=== PATIENT | female | born 1935 | race Caucasian/White ===

== ENCOUNTER 2021-03-03 20:52 | Emergency (ER) | payer MEDICARE, MEDICAID, SELFPAY ==
--- NOTE | ~2021-03-03 | CT_ITS ---
EXAMINATION: CT ABDOMEN AND PELVIS WITHOUT CONTRAST CLINICAL INFORMATION: Left lower quadrant pain, question diverticulitis COMPARISON: 03/31/2019 TECHNIQUE: Multidetector volumetric imaging was performed from the superior aspect of the liver through the pubic symphysis. Sagittal and coronal reformatted images were obtained on the technologist's workstation. This CT examination was performed using dose optimization techniques as appropriate, variously including the following: *Automated exposure control *Adjustment of mA and/or kV according to patient size (this includes techniques or standardized protocols for targeted exams where dose is matched to indication/reason for exam; i.e. extremities or head) *Use of iterative reconstruction technique DLP: 465 mGy-cm FINDINGS: LUNG BASES: The visualized lung bases are unremarkable. LIVER, GALLBLADDER, AND BILIARY TREE: The liver is normal in size, shape, and attenuation. No focal hepatic lesion or biliary ductal dilatation is present. Patient is status post cholecystectomy. PANCREAS: Unremarkable. SPLEEN: Unremarkable. ADRENAL GLANDS: Unremarkable. KIDNEYS AND URETERS: The kidneys are normal in size, shape, and attenuation. No hydronephrosis, hydroureter, or calculi seen. No perinephric stranding. BLADDER: Unremarkable. GASTROINTESTINAL TRACT: Moderate-sized hiatal hernia is noted. The small and large bowel are unremarkable. ABDOMINAL WALL: No significant hernia is appreciated. LYMPH NODES: No lymphadenopathy is seen, though assessment is limited in the absence of intravenous contrast. VASCULAR: There is atherosclerotic calcification along the aorta. PELVIC VISCERA: Patient appears status post hysterectomy. OSSEOUS STRUCTURES: Degenerative changes are noted in the spine along with a prominent scoliosis. CT/CT abdomen pelvis wo con IMPRESSION: Colonic diverticulosis without convincing evidence of diverticulitis. Moderate-sized hiatal hernia.
[2021-03-03 21:07] VITALS: BP 142/82; PULSE 120; RESP 18; TEMP 37.1; O2SAT 95; BMI 22.8
--- NOTE | 2021-03-03 22:39 | ED_ITS ---
HPI - General Adult General Chief complaint: General Medical Stated complaint: Leg pain Time Seen by Provider: 03/03/21 22:39 Source: patient Mode of arrival: ambulatory Limitations: no limitations History of Present Illness HPI narrative: Patient history of high cholesterol anxiety hypertension complaining of left lower abdominal pain for last 1 week got worse today after patient pushed hard stool. Patient was complaining of pain radiating to left leg. No nausea no vomiting no diarrhea no fever no chills no urinary complaints patient noticed small amount of fresh blood after she had bowel movement in the morning today no melena no blood clots Related Data Home Medications Medication Instructions Recorded Confirmed acetaminophen 650 mg 650 mg PO Q12H PRN 12/17/20 03/01/21 tablet,extended release cholecalciferol (vitamin D3) 25 25 mcg PO DAILY 12/17/20 03/01/21 mcg (1,000 unit) capsule clonazepam 0.5 mg tablet 0.5 mg PO DAILY PRN 12/17/20 03/01/21 lisinopril 5 mg tablet 5 mg PO DAILY 12/17/20 03/01/21 qplvxeec-kczhztd-tcut-lutein tablet tab PO DAILY tab 12/17/20 03/01/21 Previous Rx's Medication Instructions Recorded escitalopram oxalate 5 mg tablet 5 mg PO DAILY 30 Days #30 tab 12/24/20 simvastatin 5 mg tablet 5 mg PO DAILY #90 tab 02/21/21 atenolol 50 mg tablet 50 mg PO DAILY 90 Days #90 tab 02/25/21 Allergies Allergy/AdvReac Type Severity Reaction Status Date / Time Penicillins Allergy Mild RASH Verified 03/03/21 21:13 acetaminophen [Percocet] Allergy Unknown nausea Verified 03/03/21 21:13 clindamycin [CLINDAMYCIN] Allergy Unknown FELT Verified 03/03/21 21:13 AWFUL/upset stomach penicillin V Allergy Unknown rash Verified 03/03/21 21:13 oxycodone [OXYCODONE] AdvReac Unknown STOMACH Verified 03/03/21 21:13 UPSET From [facility] Allergy Mild GI UPSET Uncoded 03/03/21 21:13 Review of Systems Review of Systems: Constitutional : No Weight loss, No Fever, No Chills ENT/Mouth : No sore throat, No Rhinorrhea Eyes: No Eye Pain, No Swelling Cardiovascular : No Chest Pain, no palpitations Respiratory : No Cough, No Sputum, no shortness of breath Gastrointestinal : no Nausea, No Vomiting, No Diarrhea, ++abdominal Pain, no black stools Genitourinary : No Dysuria, No Urinary Frequency Musculoskeletal : No joint pain, No Myalgias, No Joint Swelling Skin : No Skin Lesions, No rash Neuro : No Weakness, No Numbness, No Dizziness, No Headache Psych : No Anxiety/Panic, No Depression Heme/Lymph: No Bruising, No Lymphadenopathy Endocrine : No Polyuria, No Polydipsia All other systems reviewed and are negative [facility] Past Medical History Medical History Anxiety and depression Asthma Cataracts, bilateral Cervical spondylosis Cholelithiasis Goiter Hypercholesterolemia Hypertension Impaired glucose tolerance Osteopenia Problem of both ears Surgical History Hx of cholecystectomy Hx of tonsillectomy Status post total abdominal hysterectomy Family History Family History Father No problems noted. Mother No problems noted. Social History Social History Alcohol intake: never Smoking Status: Never smoker Use of substances other than those prescribed or required for medical reasons: No Advance Directives: No Advance Directives Information Provided: Yes Physical Exam Vital Signs: Vital Signs: Last Vital Signs Temp 98.1 F 03/03/21 23:01 Pulse 113 H 03/03/21 23:01 Resp 15 03/03/21 23:01 BP 155/97 H 03/03/21 23:01 Pulse Ox 95 03/03/21 23:01 Body Mass Index 22.8 Appearance: Alert. Oriented X3. No acute distress. Eyes: PERRLA, No Nystagmus ENT: Pharynx normal. Oral Mucosa moist Neck: Normal inspection. Neck supple. CVS: Normal heart rate and rhythm. Pulses normal. Respiratory: No respiratory distress. Equal air entry bilateral, no wheezing/rales/rhonchi Abdomen: Soft , deep tenderness left lower quadrant no rebound tenderness or guarding Bowel sounds are present, no mass palpable, no CVA tenderness Skin: Skin warm and dry. Normal skin color. Normal skin turgor. Extremities: No lower extremity edema. No calf tenderness Neuro: Oriented X 3. No motor deficit. No sensory deficit.No cerebellar signs , cranial nerves II-XII intact Medical Decision Making MDM Narrative Medical decision making narrative: Patient with nonspecific left lower abdominal pain workup showed diverticulosis without diverticulitis CBC chemistries stable patient has spider veins in the left leg and she complaining of does the promi nent veins no signs of DVT. Will discharge patient home Lab Data Result diagrams: 03/03/21 23:20 03/03/21 23:20 Labs: Lab Results 03/03/21 03/03/21 03/03/21 Range/Units 23:20 23:20 23:20 WBC 5.1 (4.8-10.8) X10*3/uL RBC 4.45 (4.20-5.50) X10*6/uL Hgb 13.4 (12.0-16.0) g/dl Hct 40.2 (37-47) % MCV 90.3 (80-98) fL MCH 30.1 (27.0-33.0) pg MCHC 33.3 (31.0-35.0) g/dl RDW 13.1 (11.0-16.0) % Plt Count 173 (160-400) X10*3/uL MPV 9.9 (9.4-12.3) fL Immature Gran % (Auto) 0.2 (0.0-0.4) % Neut % (Auto) 55.5 (45-73) % Lymph % (Auto) 31.6 (20-40) % [place] % (Auto) 9.5 (2-11) % Eos % (Auto) 2.8 (0-4) % Baso % (Auto) 0.4 (0-2) % Lymph # (Auto) 1.6 (1.2-4.9) X10*3/uL [place] # (Auto) 0.5 (0.1-1.2) X10*3/uL Eos # (Auto) 0.1 (0.0-0.4) X10*3/uL Baso # (Auto) 0.0 (0.0-0.2) X10*3/uL Abs Immat Gran (auto) 0.01 (0.00-0.03) X10*3/uL Absolute Neuts (auto) 2.8 (2.0-8.3) X10*3/uL Absolute Nucleated RBC 0.000 (0.0-0.012) X10*3/uL Nucleated RBC % (auto) 0.0 (0.0-0.2) /100WBC Sodium 142 (135-145) mmol/L Potassium 4.9 (3.3-5.1) mmol/L Chloride 108 (96-108) mmol/L Carbon Dioxide 25 (22-29) mmol/L Anion Gap 14 (12-20) BUN 24 H (9-16) mg/dL Creatinine 0.92 (0.5-1.4) mg/dL Estim Creat Clear Calc 35.3 Estimated GFR 58 Random Glucose 110 (60-115) mg/dL Calcium 9.4 (8.4-10.2) mg/dL Total Bilirubin 0.6 (0.0-1.0) mg/dL Direct Bilirubin 0.2 (0.0-0.5) mg/dL AST 24 (5-31) U/L ALT 19 (0-31) U/L Alkaline Phosphatase 52 (39-117) U/L Total Protein 6.7 (6.5-8.0) g/dL Albumin 3.9 (3.5-5.0) g/dL Lipase 29 (8-78) U/L Urine Color Urine Appearance Urine pH (5.0-8.0) Ur Specific [place] (1.005-1.025) Urine Protein (NEG-TRACE) MG/DL Urine Glucose (UA) (NEG) MG/DL Urine Ketones (NEG) MG/DL Urine Blood (NEG) Urine Nitrite (NEG) Ur Leukocyte Esterase (NEG) 03/04/21 Range/Units 00:31 WBC (4.8-10.8) X10*3/uL RBC (4.20-5.50) X10*6/uL Hgb (12.0-16.0) g/dl Hct (37-47) % MCV (80-98) fL MCH (27.0-33.0) pg MCHC (31.0-35.0) g/dl RDW (11.0-16.0) % Plt Count (160-400) X10*3/uL MPV (9.4-12.3) fL Immature Gran % (Auto) (0.0-0.4) % Neut % (Auto) (45-73) % Lymph % (Auto) (20-40) % [place] % (Auto) (2-11) % Eos % (Auto) (0-4) % Baso % (Auto) (0-2) % Lymph # (Auto) (1.2-4.9) X10*3/uL [place] # (Auto) (0.1-1.2) X10*3/uL Eos # (Auto) (0.0-0.4) X10*3/uL Baso # (Auto) (0.0-0.2) X10*3/uL Abs Immat Gran (auto) (0.00-0.03) X10*3/uL Absolute Neuts (auto) (2.0-8.3) X10*3/uL Absolute Nucleated RBC (0.0-0.012) X10*3/uL Nucleated RBC % (auto) (0.0-0.2) /100WBC Sodium (135-145) mmol/L Potassium (3.3-5.1) mmol/L Chloride (96-108) mmol/L Carbon Dioxide (22-29) mmol/L Anion Gap (12-20) BUN (9-16) mg/dL Creatinine (0.5-1.4) mg/dL Estim Creat Clear Calc Estimated GFR Random Glucose (60-115) mg/dL Calcium (8.4-10.2) mg/dL Total Bilirubin (0.0-1.0) mg/dL Direct Bilirubin (0.0-0.5) mg/dL AST (5-31) U/L ALT (0-31) U/L Alkaline Phosphatase (39-117) U/L Total Protein (6.5-8.0) g/dL Albumin (3.5-5.0) g/dL Lipase (8-78) U/L Urine Color YELLOW Urine Appearance CLEAR Urine pH 6.0 (5.0-8.0) Ur Specific [place] 1.020 (1.005-1.025) Urine Protein NEG (NEG-TRACE) MG/DL Urine Glucose (UA) NEG (NEG) MG/DL Urine Ketones NEG (NEG) MG/DL Urine Blood NEG (NEG) Urine Nitrite NEG (NEG) Ur Leukocyte Esterase NEG (NEG) Imaging Data CT scan - abdomen: Radiologist's impression: Patient: Danielle Bonilla EMR#: [id number]: 5Acct:[id number]/Sex: 85 / FADM Date: 03/03/21Loc: HO.EDAttending Dr: Ordering Physician: Brandin Muir MD Date of Service: 03/03/21 Procedure(s): CT abdomen pelvis wo con Accession Number(s): [id number] cc: Brandin Muir MD~ EXAMINATION: CT ABDOMEN AND PELVIS WITHOUT CONTRAST CLINICAL INFORMATION: Left lower quadrant pain, question diverticulitis COMPARISON: 03/31/2019 TECHNIQUE: Multidetector volumetric imaging was performed from the superior aspect of the liver through the pubic symphysis. Sagittal and coronal reformatted images were obtained on the technologist's workstation. This CT examination was performed using dose optimization techniques as appropriate, variously including the following: *Automated exposure control *Adjustment of mA and/or kV according to patient size (this includes techniques or standardized protocols for targeted exams where dose is matched to indication/reason for exam; i.e. extremities or head) *Use of iterative reconstruction technique DLP: 465 mGy-cm FINDINGS: LUNG BASES: The visualized lung bases are unremarkable. LIVER, GALLBLADDER, AND BILIARY TREE: The liver is normal in size, shape, and attenuation. No focal hepatic lesion or biliary ductal dilatation is present. Patient is status post cholecystectomy. PANCREAS: Unremarkable. SPLEEN: Unremarkable. ADRENAL GLANDS: Unremarkable. KIDNEYS AND URETERS: The kidneys are normal in size, shape, and attenuation. No hydronephrosis, hydroureter, or calculi seen. No perinephric stranding. BLADDER: Unremarkable. GASTROINTESTINAL TRACT: Moderate-sized hiatal hernia is noted. The small and large bowel are unremarkable. ABDOMINAL WALL: No significant hernia is appreciated. LYMPH NODES: No lymphadenopathy is seen, though assessment is limited in the absence of intravenous contrast. VASCULAR: There is atherosclerotic calcification along the aorta. PELVIC VISCERA: Patient appears status post hysterectomy. OSSEOUS STRUCTURES: Degenerative changes are noted in the spine along with a prominent scoliosis. CT/CT abdomen pelvis wo con IMPRESSION: Colonic diverticulosis without convincing evidence of diverticulitis. Moderate-sized hiatal hernia. Dictated By:MAXIMILIAN MO MD Discharge Plan Discharge Clinical Impression: Diverticulosis Patient Disposition: Home, Self-Care Instructions: Diverticulosis (ED) Additional Instructions: Avoid constipation/straining , have lot of fibers Report to ER/PCP if increased abdominal pain/fever/vomiting Prescriptions: No Action simvastatin 5 mg tablet 5 mg PO DAILY Qty: 90 RF: 1 atenolol 50 mg tablet 50 mg PO DAILY 90 Days Qty: 90 RF: 1 cholecalciferol (vitamin D3) 25 mcg (1,000 unit) capsule 25 mcg PO DAILY RF: 0 lisinopril 5 mg tablet 5 mg PO DAILY RF: 0 clonazepam 0.5 mg tablet 0.5 mg PO DAILY PRNRF: 0 dhxgmxqs-hlxjwcv-xfep-lutein Tablet PO DAILY RF: 0 acetaminophen [Tylenol 8 Hour] 650 mg tablet extended release 650 mg PO Q12H PRNRF: 0 escitalopram oxalate 5 mg tablet 5 mg PO DAILY 30 Days Qty: 30 RF: 0
[2021-03-03 23:01] VITALS: BP 155/97; PULSE 113; RESP 15; TEMP 36.7; O2SAT 95
[2021-03-03 23:25] LABS: MANUAL DIFF FLAG NO
[2021-03-03 23:27] LABS: Basophils Percent Auto 0.4 % (0-2); Eosinophils Absolute Auto 0.1 X10*3/uL (0.0-0.4); Eosinophils Percent Auto 2.8 % (0-4); Hematocrit 40.2 % (37-47); Hemoglobin 13.4 g/dl (12.0-16.0); Imm Gran Abs Auto 0.01 X10*3/uL (0.00-0.03); Imm Gran Pct Auto 0.2 % (0.0-0.4); Lymphocytes Absolute Auto 1.6 X10*3/uL (1.2-4.9); Lymphocytes Percent Auto 31.6 % (20-40); Mean Corpuscular HGB Conc 33.3 g/dl (31.0-35.0); Mean Corpuscular Hemoglobin 30.1 pg (27.0-33.0); Mean Corpuscular Volume 90.3 fL (80-98); Mean Platelet Volume 9.9 fL (9.4-12.3); Monocytes Absolute Auto 0.5 X10*3/uL (0.1-1.2); Monocytes Percent Auto 9.5 % (2-11); Neutrophils Absolute Auto 2.8 X10*3/uL (2.0-8.3); Neutrophils Percent Auto 55.5 % (45-73); Platelet Count 173 X10*3/uL (160-400); Red Blood Count 4.45 X10*6/uL (4.20-5.50); Red Cell Distribution Width 13.1 % (11.0-16.0); White Blood Count 5.1 X10*3/uL (4.8-10.8)
[2021-03-03 23:54] LABS: Anion Gap 14 (12-20); Blood Urea Nitrogen 24 mg/dL (9-16); Calcium 9.4 mg/dL (8.4-10.2); Carbon Dioxide 25 mmol/L (22-29); Chloride 108 mmol/L (96-108); Creatinine Clr Calc Pharmacy 35.3; Estimated Glomerular Filt Rate 58; Glucose Random 110 mg/dL (60-115); Potassium 4.9 mmol/L (3.3-5.1); Sodium 142 mmol/L (135-145)
[2021-03-03 23:55] LABS: Alanine Aminotransferase 19 U/L (0-31); Albumin Level 3.9 g/dL (3.5-5.0); Alkaline Phosphatase 52 U/L (39-117); Aspartate Amino Transferase 24 U/L (5-31); Bilirubin Direct 0.2 mg/dL (0.0-0.5); Bilirubin Total 0.6 mg/dL (0.0-1.0); Lipase 29 U/L (8-78); Total Protein 6.7 g/dL (6.5-8.0)
[2021-03-04 00:37] LABS: Glucose Urine UA NEG (NEG); Leukocyte Esterase Urine NEG (NEG); Nitrite Urine NEG (NEG); Urine Blood NEG (NEG); Urine Ketones NEG (NEG); Urine Protein NEG (NEG-TRACE)
[2021-03-04 00:39] LABS: Appearance Urine CLEAR; Color Urine YELLOW
== END 2021-03-04 01:41 | disposition home or self-care (01) ==
PROVIDERS: Emergency Provider Internal Medicine; PCP Internal Medicine
DX: K57.30 Diverticulosis of large intestine without perforation or abscess without bleeding (principal); K44.9 Diaphragmatic hernia without obstruction or gangrene; M79.605 Pain in left leg; E78.00 Pure hypercholesterolemia, unspecified; I10 Essential (primary) hypertension; Z90.49 Acquired absence of other specified parts of digestive tract
CPT/HCPCS: 36415; 74176; 80048; 80076; 81003; 83690; 85025; 99284

== ENCOUNTER 2021-05-05 09:20 | Emergency (ER) | payer MEDICARE, MEDICAID, SELFPAY ==
--- NOTE | 2021-05-05 | ECG_ITS ---
Test Reason : CP Blood Pressure : / mmHG Vent. Rate : 077 BPM Atrial Rate : 077 BPM P-R Int : 142 ms QRS Dur : 084 ms QT Int : 376 ms P-R-T Axes : 061 040 037 degrees QTc Int : 425 ms Artifact in tracing Normal sinus rhythm Low voltage QRS Borderline ECG When compared with ECG of 31-MAR-2019 18:01, Sinus rhythm has replaced Ectopic atrial rhythm Criteria for Septal infarct are no longer Present Referred By: Generic ED Physician Electronically Signed By:LIANNE HAYS
--- NOTE | ~2021-05-05 | XR_ITS ---
EXAMINATION: XR CHEST CLINICAL INFORMATION: Chest pain COMPARISON: CT abdomen 03/03/2021, chest radiographs 11/24/2017, 05/24/2017 TECHNIQUE: Portable upright AP view of the chest was obtained. FINDINGS: There is mild hyperinflation similar to prior studies. No airspace consolidation or groundglass opacity is demonstrated. There is no pneumothorax or pleural reaction or effusion. The heart is normal in size. The vascularity is normal. The hilar and mediastinal contours and bony structures are unremarkable. XR/XR chest 1V IMPRESSION: Unremarkable examination.
[2021-05-05 09:25] VITALS: BP 151/77; PULSE 77; RESP 20; TEMP 37.2; O2SAT 98; BMI 22.1
--- NOTE | 2021-05-05 09:45 | ED.CHESTPAIN ---
HPI - Chest Pain General Chief Complaint: Chest Pain Stated Complaint: chest pain Time Seen by Provider: 05/05/21 09:44 Source: patient Mode of arrival: ambulatory Limitations: no limitations History of Present Illness HPI narrative: this is 85 years old female came in for evaluation of left-sided chest pain. Patient states that pain started about 2 hours ago while resting pain is localized to the left chest wall, pain is constant since started, described as moderate 5/10, no radiation, movement makes the pain worse, nothing relieves the pain. Patient stated she has been going through lot of stress in the last 3 days because her 19 years old cat was dying for the last 3 days. Related Data Home Medications Medication Instructions Recorded Confirmed acetaminophen 650 mg 650 mg PO Q12H PRN 12/17/20 03/01/21 tablet,extended release cholecalciferol (vitamin D3) 25 25 mcg PO DAILY 12/17/20 03/01/21 mcg (1,000 unit) capsule clonazepam 0.5 mg tablet 0.5 mg PO DAILY PRN 12/17/20 03/01/21 lisinopril 5 mg tablet 5 mg PO DAILY 12/17/20 03/01/21 kdyfmiqi-zeykcfi-fobz-lutein tablet tab PO DAILY tab 12/17/20 03/01/21 Previous Rx's Medication Instructions Recorded escitalopram oxalate 5 mg tablet 5 mg PO DAILY 30 Days #30 tab 12/24/20 simvastatin 5 mg tablet 5 mg PO DAILY #90 tab 02/21/21 atenolol 50 mg tablet 50 mg PO DAILY 90 Days #90 tab 02/25/21 Allergies Allergy/AdvReac Type Severity Reaction Status Date / Time Penicillins Allergy Mild RASH Verified 05/05/21 09:25 acetaminophen [Percocet] Allergy Unknown nausea Verified 05/05/21 09:25 clindamycin [CLINDAMYCIN] Allergy Unknown FELT Verified 05/05/21 09:25 AWFUL/upset stomach penicillin V Allergy Unknown rash Verified 05/05/21 09:25 oxycodone [OXYCODONE] AdvReac Unknown STOMACH Verified 05/05/21 09:25 UPSET From [facility] Allergy Mild GI UPSET Uncoded 03/03/21 21:13 Review of Systems Review of Systems: All other systems are reviewed and are negative Constitutional: Reports as per HPI and Reports no additional constitutional complaints Eyes: Reports as per HPI and Reports no additional eye complaints Reports system reviewed and no additional complaints, except as documented Cardiovascular: Reports as per HPI and Reports no additional cardiovascular complaints Respiratory: Reports as per HPI and Reports no additional respiratory complaints Gastrointestinal: Reports as per HPI and Reports no additional gastrointestinal complaints Genitourinary: Reports no additional female genitourinary complaints Musculoskeletal: Reports no additional musculoskeletal complaints Skin/Breast: Reports system reviewed and no additional complaints, except as docu Psychiatric: Reports no additional psychiatric complaints Endocrine: Reports no additional endocrine complaints Hematologic/Lymphatic: Reports no additional hematologic/lymphatic complaints Allergic/Immunologic: Reports no additional allergic/immunologic complaints Reports system reviewed and no additional complaints, except as documented and Reports Abnormal speech present [facility] Past Medical History Medical History Anxiety and depression Asthma Cataracts, bilateral Cervical spondylosis Cholelithiasis Goiter Hypercholesterolemia Hypertension Impaired glucose tolerance Osteopenia Problem of both ears Surgical History Hx of cholecystectomy Hx of tonsillectomy Status post total abdominal hysterectomy Family History Family History Father No problems noted. Mother No problems noted. Social History Social History Alcohol intake: never Patient Tobacco Use Status: Never used Tobacco Use of substances other than those prescribed or required for medical reasons: No Advance Directives: Yes Advance Directives Information Provided: Yes Advance Directives on File: No Physical Exam Vital Signs: Vital Signs: Last Vital Signs Temp 99.0 F 05/05/21 09:25 Pulse 73 05/05/21 13:58 Resp 16 05/05/21 13:58 BP 132/65 05/05/21 13:58 Pulse Ox 96 05/05/21 13:58 Body Mass Index 22.1 vital signs have been reviewed as appeared to be correct. Blood pressure normal. Heart rate normal. Respiration rate normal. Temperature normal. Oxygen saturation normal. Appearance: Alert. Oriented X3. No acute distress. Head: Normal external exam. Normocephalic. Atraumatic. No Byrne signs noted. No raccoon eyes noted Eyes: PERRLA. EOMI. Conjunctiva and sclera normal. Eyelids normal. ENT: TM's Normal. Pharynx normal. Uvula midline. Moist mucous membranes. No trismus noted. No drooling noted. No muffled voice noted. Neck: Normal inspection. Neck supple. FROM. No adenopathy. Thyroid Normal. No meningeal signs. No neck mass noted. CVS: Normal heart rate and rhythm. Heart sound normal. No murmurs noted. Pulses normal throughout. Respiratory: No respiratory distress. Painless inspiration. Breath sounds normal. No wheezes/rales/rhonchi noted. point of reproducible pain to the left chest wall Where the patient complain of chest pain.. No accessory muscle usage noted or decreased air movement noted. Abdomen: Soft and nontender. Bowel sounds normal in all 4 quadrants. No distention noted. No organomegaly noted. No visible injury noted. Back: No CVA tenderness. Full range of motion noted. Skin: Skin warm and dry. Normal skin color. Normal skin turgor. No rashes/lesions/lacerations noted. Extremities: No lower extremity edema. Extremities exhibit normal range of motion. Extremities nontender. Neuro: Oriented X 3. No motor deficit. No sensory deficit. Reflexes normal. Course Course Course Narrative: 85 years old female came in for evaluation of chest pain, physical exam/ EKG/ labs are more consistent with anxiety /stress related. Slight elevation of D-dimer however patient at low risk for PE when a do any further testing. Will reassure the patient and discharge with follow-up with her PCP. MDM - Chest Pain Lab Data Attestation: I reviewed the patient's lab results. Result diagrams: 05/05/21 09:47 05/05/21 09:47 Labs: Lab Results 05/05/21 05/05/21 05/05/21 Range/Units 09:47 09:47 09:47 WBC 5.0 (4.8-10.8) X10*3/uL RBC 4.36 (4.20-5.50) X10*6/uL Hgb 13.1 (12.0-16.0) g/dl Hct 38.8 (37-47) % MCV 89.0 (80-98) fL MCH 30.0 (27.0-33.0) pg MCHC 33.8 (31.0-35.0) g/dl RDW 13.1 (11.0-16.0) % Plt Count 191 (160-400) X10*3/uL MPV 9.8 (9.4-12.3) fL Immature Gran % (Auto) 0.2 (0.0-0.4) % Neut % (Auto) 56.8 (45-73) % Lymph % (Auto) 30.0 (20-40) % [place] % (Auto) 10.8 (2-11) % Eos % (Auto) 1.8 (0-4) % Baso % (Auto) 0.4 (0-2) % Lymph # (Auto) 1.5 (1.2-4.9) X10*3/uL [place] # (Auto) 0.5 (0.1-1.2) X10*3/uL Eos # (Auto) 0.1 (0.0-0.4) X10*3/uL Baso # (Auto) 0.0 (0.0-0.2) X10*3/uL Abs Immat Gran (auto) 0.01 (0.00-0.03) X10*3/uL Absolute Neuts (auto) 2.8 (2.0-8.3) X10*3/uL Absolute Nucleated RBC 0.000 (0.0-0.012) X10*3/uL Nucleated RBC % (auto) 0.0 (0.0-0.2) /100WBC D-Dimer NG/ML Sodium 139 (135-145) mmol/L Potassium 4.3 (3.3-5.1) mmol/L Chloride 108 (96-108) mmol/L Carbon Dioxide 20 L (22-29) mmol/L Anion Gap 15 (12-20) BUN 17 H (9-16) mg/dL Creatinine 0.83 (0.5-1.4) mg/dL Estim Creat Clear Calc 39.2 Estimated GFR > 60 Random Glucose 123 H (60-115) mg/dL Calcium 9.3 (8.4-10.2) mg/dL Total Creatine Kinase 142 H (26-140) U/L Troponin I High Sens < 3.5 (<3.5-17.0) ng/L 05/05/21 05/05/21 Range/Units 09:59 13:18 WBC (4.8-10.8) X10*3/uL RBC (4.20-5.50) X10*6/uL Hgb (12.0-16.0) g/dl Hct (37-47) % MCV (80-98) fL MCH (27.0-33.0) pg MCHC (31.0-35.0) g/dl RDW (11.0-16.0) % Plt Count (160-400) X10*3/uL MPV (9.4-12.3) fL Immature Gran % (Auto) (0.0-0.4) % Neut % (Auto) (45-73) % Lymph % (Auto) (20-40) % [place] % (Auto) (2-11) % Eos % (Auto) (0-4) % Baso % (Auto) (0-2) % Lymph # (Auto) (1.2-4.9) X10*3/uL [place] # (Auto) (0.1-1.2) X10*3/uL Eos # (Auto) (0.0-0.4) X10*3/uL Baso # (Auto) (0.0-0.2) X10*3/uL Abs Immat Gran (auto) (0.00-0.03) X10*3/uL Absolute Neuts (auto) (2.0-8.3) X10*3/uL Absolute Nucleated RBC (0.0-0.012) X10*3/uL Nucleated RBC % (auto) (0.0-0.2) /100WBC D-Dimer 290 NG/ML Sodium (135-145) mmol/L Potassium (3.3-5.1) mmol/L Chloride (96-108) mmol/L Carbon Dioxide (22-29) mmol/L Anion Gap (12-20) BUN (9-16) mg/dL Creatinine (0.5-1.4) mg/dL Estim Creat Clear Calc Estimated GFR Random Glucose (60-115) mg/dL Calcium (8.4-10.2) mg/dL Total Creatine Kinase (26-140) U/L Troponin I High Sens < 3.5 (<3.5-17.0) ng/L Imaging Data Chest x-ray: Radiologist's impression: Unremarkable examination ECG Data ECG #1: Interpretation: normal sinus rhythm at 77 beats per minutes, normal axis, normal intervals, artifact in V5 but overall are no ST-T changes. Discharge Plan Discharge Clinical Impression: Anxiety Patient Disposition: Home, Self-Care Instructions: Anxiety (ED) Prescriptions: No Action simvastatin 5 mg tablet 5 mg PO DAILY Qty: 90 RF: 1 atenolol 50 mg tablet 50 mg PO DAILY 90 Days Qty: 90 RF: 1 cholecalciferol (vitamin D3) 25 mcg (1,000 unit) capsule 25 mcg PO DAILY RF: 0 lisinopril 5 mg tablet 5 mg PO DAILY RF: 0 clonazepam 0.5 mg tablet 0.5 mg PO DAILY PRNRF: 0 xprjulax-ymfjskm-tqgm-lutein Tablet PO DAILY RF: 0 acetaminophen [Tylenol 8 Hour] 650 mg tablet extended release 650 mg PO Q12H PRNRF: 0 escitalopram oxalate 5 mg tablet 5 mg PO DAILY 30 Days Qty: 30 RF: 0 Referrals: Po,Niall Hopson MD [Primary Care Provider] - 2 days
--- NOTE | 2021-05-05 09:52 | PC.NURSE ---
Pt reports left sided chest pain under left breast since approx 0730 this morning. States she was putting rollers in her hair when pain started. Pain constant, worse with palpation with radiation to left arm and left neck. Reports feeling SOB but does not appear in distress, resp unlabored/even. NSR on tele. Skin pink warm and dry. Speaking full sentences. Pt does report increased anxiety over cat that yesterday and some recent troubles with caregivers. Pt lives alone but has help from friend when needed. EKG obtained, line established and labs sent
[2021-05-05 09:54] VITALS: PULSE 72
[2021-05-05 09:54] LABS: MANUAL DIFF FLAG NO
[2021-05-05 09:56] LABS: Basophils Percent Auto 0.4 % (0-2); Eosinophils Absolute Auto 0.1 X10*3/uL (0.0-0.4); Eosinophils Percent Auto 1.8 % (0-4); Hematocrit 38.8 % (37-47); Hemoglobin 13.1 g/dl (12.0-16.0); Imm Gran Abs Auto 0.01 X10*3/uL (0.00-0.03); Imm Gran Pct Auto 0.2 % (0.0-0.4); Lymphocytes Absolute Auto 1.5 X10*3/uL (1.2-4.9); Mean Corpuscular HGB Conc 33.8 g/dl (31.0-35.0); Mean Platelet Volume 9.8 fL (9.4-12.3); Monocytes Absolute Auto 0.5 X10*3/uL (0.1-1.2); Monocytes Percent Auto 10.8 % (2-11); Neutrophils Absolute Auto 2.8 X10*3/uL (2.0-8.3); Neutrophils Percent Auto 56.8 % (45-73); Platelet Count 191 X10*3/uL (160-400); Red Blood Count 4.36 X10*6/uL (4.20-5.50); Red Cell Distribution Width 13.1 % (11.0-16.0)
[2021-05-05 10:18] LABS: D Dimer 290 NG/ML
[2021-05-05 10:31] LABS: Troponin-I High Sensitivity < 3.5 ng/L (<3.5-17.0)
[2021-05-05 10:43] LABS: Anion Gap 15 (12-20); Blood Urea Nitrogen 17 mg/dL (9-16); Calcium 9.3 mg/dL (8.4-10.2); Carbon Dioxide 20 mmol/L (22-29); Chloride 108 mmol/L (96-108); Creatinine Clr Calc Pharmacy 39.2; Estimated Glomerular Filt Rate > 60; Glucose Random 123 mg/dL (60-115); Potassium 4.3 mmol/L (3.3-5.1); Sodium 139 mmol/L (135-145)
[2021-05-05 13:58] VITALS: BP 132/65; PULSE 73; RESP 16; O2SAT 96
[2021-05-05 13:59] LABS: Troponin-I High Sensitivity < 3.5 ng/L (<3.5-17.0)
[2021-05-05 15:47] VITALS: BP 136/72; PULSE 81; RESP 16; TEMP 37.1; O2SAT 98
== END 2021-05-05 15:49 | disposition home or self-care (01) ==
PROVIDERS: Emergency Provider Emergency Medicine; PCP Internal Medicine
DX: F41.9 Anxiety disorder, unspecified (principal); I10 Essential (primary) hypertension; J45.909 Unspecified asthma, uncomplicated; Z79.899 Other long term (current) drug therapy
CPT/HCPCS: 36415; 71045; 80048; 82550; 84484; 85025; 85379; 93005; 99285

== ENCOUNTER 2021-05-24 10:00 | Outpatient (REF) | payer MEDICARE, MEDICAID, SELFPAY ==
--- NOTE | 2021-05-24 10:15 | ECG_ITS ---
Test Reason : CP Blood Pressure : / mmHG Vent. Rate : 071 BPM Atrial Rate : 071 BPM P-R Int : 146 ms QRS Dur : 084 ms QT Int : 382 ms P-R-T Axes : 066 051 038 degrees QTc Int : 415 ms Normal sinus rhythm Low voltage QRS Borderline ECG When compared with ECG of 05-MAY-2021 09:26, No significant change was found Referred By: Niall Schrader Electronically Signed By:LIANNE HAYS
[2021-05-24 11:01] LABS: MANUAL DIFF FLAG NO
[2021-05-24 11:26] LABS: Basophils Percent Auto 0.5 % (0-2); Eosinophils Absolute Auto 0.1 X10*3/uL (0.0-0.4); Hematocrit 41.4 % (37-47); Hemoglobin 13.9 g/dl (12.0-16.0); Imm Gran Abs Auto 0.01 X10*3/uL (0.00-0.03); Imm Gran Pct Auto 0.2 % (0.0-0.4); Lymphocytes Absolute Auto 1.5 X10*3/uL (1.2-4.9); Mean Corpuscular HGB Conc 33.6 g/dl (31.0-35.0); Mean Corpuscular Hemoglobin 30.4 pg (27.0-33.0); Mean Corpuscular Volume 90.6 fL (80-98); Mean Platelet Volume 10.9 fL (9.4-12.3); Monocytes Absolute Auto 0.5 X10*3/uL (0.1-1.2); Monocytes Percent Auto 8.7 % (2-11); Neutrophils Absolute Auto 3.4 X10*3/uL (2.0-8.3); Neutrophils Percent Auto 61.6 % (45-73); Platelet Count 196 X10*3/uL (160-400); Red Blood Count 4.57 X10*6/uL (4.20-5.50); Red Cell Distribution Width 13.1 % (11.0-16.0); White Blood Count 5.5 X10*3/uL (4.8-10.8)
[2021-05-24 11:33] LABS: Alanine Aminotransferase 15 U/L (0-31); Albumin Level 4.3 g/dL (3.5-5.0); Alkaline Phosphatase 51 U/L (39-117); Anion Gap 13 (12-20); Aspartate Amino Transferase 23 U/L (5-31); Bilirubin Total 0.5 mg/dL (0.0-1.0); Blood Urea Nitrogen 18 mg/dL (9-16); Calcium 9.5 mg/dL (8.4-10.2); Carbon Dioxide 25 mmol/L (22-29); Chloride 106 mmol/L (96-108); Cholesterol 185 mg/dL; Estimated Glomerular Filt Rate > 60; Glucose Random 114 mg/dL (60-115); HDL Cholesterol 70 mg/dL; LDL Cholesterol Calculated 101 mg/dl; Potassium 4.8 mmol/L (3.3-5.1); Sodium 139 mmol/L (135-145); Total Protein 7.2 g/dL (6.5-8.0); Triglycerides 72 mg/dL
[2021-05-24 11:56] LABS: Free T4 (Free Thyroxine) 1.01 ng/dL (0.71-1.85); Thyroid Stimulating Hormone 0.94 uIU/mL (0.32-4.0); Vitamin D 25-OH Total 29.5 ng/mL (>30)
[2021-05-24 12:14] LABS: Folate 19.1 ng/mL (> or = 4.0); Vitamin B12 581 pg/mL (200-900)
== END 2021-05-24 10:01 | disposition home or self-care (01) ==
LOC: HO.LAB 10:00
PROVIDERS: PCP Internal Medicine; Visit Provider Internal Medicine
DX: I10 Essential (primary) hypertension (principal); E78.00 Pure hypercholesterolemia, unspecified
CPT/HCPCS: 36415; 80053; 80061; 82306; 82607; 82746; 84439; 84443; 85025; 93005

== ENCOUNTER 2021-08-25 10:23 | Emergency (ER) | payer MEDICARE, MEDICAID, SELFPAY ==
[2021-08-25 10:28] VITALS: BP 169/92; PULSE 97; RESP 18; TEMP 36.6; O2SAT 98; BMI 22.4
--- NOTE | 2021-08-25 11:24 | ED.GENADULT ---
HPI - General Adult General Chief complaint: General Medical Stated complaint: anxiety, hbp Time Seen by Provider: 08/25/21 11:24 Related Data Home Medications Medication Instructions Recorded Confirmed acetaminophen 650 mg 650 mg PO Q12H PRN 12/17/20 06/08/21 tablet,extended release (Tylenol 8 Hour) cholecalciferol (vitamin D3) 25 25 mcg PO DAILY 12/17/20 06/08/21 mcg (1,000 unit) capsule clonazepam 0.5 mg tablet 0.5 mg PO DAILY PRN 12/17/20 06/08/21 lisinopril 5 mg tablet 5 mg PO DAILY 12/17/20 06/08/21 rpwodlwb-thutsdu-hkmg-lutein tablet tab PO DAILY tab 12/17/20 06/08/21 Previous Rx's Medication Instructions Recorded escitalopram oxalate 5 mg tablet 5 mg PO DAILY 30 Days #30 tab 12/24/20 simvastatin 5 mg tablet 5 mg PO DAILY #90 tab 02/21/21 atenolol 50 mg tablet 50 mg PO DAILY 90 Days #90 tab 02/25/21 lightweight Walker #1 ea 06/27/21 prednisone 20 mg tablet 20 mg PO DAILY 5 Days #5 tab 07/27/21 Allergies Allergy/AdvReac Type Severity Reaction Status Date / Time Penicillins Allergy Mild RASH Verified 06/08/21 11:18 acetaminophen [Percocet] Allergy Unknown nausea Verified 06/08/21 11:18 clindamycin [CLINDAMYCIN] Allergy Unknown FELT Verified 06/08/21 11:18 AWFUL/upset stomach penicillin V Allergy Unknown rash Verified 06/08/21 11:18 oxycodone [OXYCODONE] AdvReac Unknown STOMACH Verified 06/08/21 11:18 UPSET From [facility] Allergy Mild GI UPSET Uncoded 06/08/21 11:18 [facility] Past Medical History Medical History Asthma Cataracts, bilateral Cervical spondylosis Cholelithiasis Goiter Hypercholesterolemia Hypertension Impaired glucose tolerance Osteopenia Post-menopausal Problem of both ears Scoliosis Surgical History History of cataract surgery History of colonoscopy Hx of cholecystectomy Hx of tonsillectomy Status post total abdominal hysterectomy Family History Family History Father No problems noted. Mother No problems noted. Social History Social History Housing: Apartment Alcohol intake: never Patient Tobacco Use Status: Never used Tobacco Advance Directives: No service: No Current occupational status: retired and disabled Physical Exam Vital Signs: Vital Signs: Last Vital Signs Temp 98 F 08/25/21 10:28 Pulse 97 08/25/21 10:28 Resp 18 08/25/21 10:28 BP 169/92 H 08/25/21 10:28 Pulse Ox 98 08/25/21 10:28 Body Mass Index 22.4 Discharge Plan Discharge Prescriptions: No Action simvastatin 5 mg tablet 5 mg PO DAILY Qty: 90 RF: 1 atenolol 50 mg tablet 50 mg PO DAILY 90 Days Qty: 90 RF: 1 prednisone 20 mg tablet 20 mg PO DAILY 5 Days Qty: 5 RF: 0 cholecalciferol (vitamin D3) 25 mcg (1,000 unit) capsule 25 mcg PO DAILY RF: 0 lisinopril 5 mg tablet 5 mg PO DAILY RF: 0 clonazepam 0.5 mg tablet 0.5 mg PO DAILY PRNRF: 0 dpbrruzs-xrcbqqu-ofjy-lutein Tablet PO DAILY RF: 0 acetaminophen [Tylenol 8 Hour] 650 mg tablet extended release 650 mg PO Q12H PRNRF: 0 escitalopram oxalate 5 mg tablet 5 mg PO DAILY 30 Days Qty: 30 RF: 0 (DME) lightweight Walker See Rx Instructions .Route .MEDSUPPLY Qty: 1 RF: 0
[2021-08-25 11:57] VITALS: BP 132/69; PULSE 72; RESP 18; TEMP 36.6; O2SAT 97
--- NOTE | 2021-08-25 12:28 | ED.GENADULT ---
HPI - General Adult General Chief complaint: General Medical Stated complaint: anxiety, hbp Time Seen by Provider: 08/25/21 11:24 Source: patient Mode of arrival: ambulatory Limitations: no limitations History of Present Illness HPI narrative: 86 years old female with past medical history of anxiety, hypercholesteremia, hypertension is here today for complaints of feeling anxious in the past couple days. Patient experienced multiple phone calls yesterday from multiple people asking for money. Patient has Elder Services coming to her house every day to help with care and when someone came to her house this morning patient was very nervous when she was trying to tell what happened to her yesterday. Staff member told patient that she should go to the hospital and get checked out. Patient denies any CP, PND, syncope, presyncope, SOB with or without exertion. Patient denies any palpitations no edema. Patient reports that she did not want ago however she was advised that she should go to get checked out. Patient reports that she suffers from an anxiety for several years and PTSD. Patient denies SI or HI Related Data Home Medications Medication Instructions Recorded Confirmed acetaminophen 650 mg 650 mg PO Q12H PRN 12/17/20 06/08/21 tablet,extended release (Tylenol 8 Hour) cholecalciferol (vitamin D3) 25 25 mcg PO DAILY 12/17/20 06/08/21 mcg (1,000 unit) capsule clonazepam 0.5 mg tablet 0.5 mg PO DAILY PRN 12/17/20 06/08/21 lisinopril 5 mg tablet 5 mg PO DAILY 12/17/20 06/08/21 rcqkypkk-mgfkuwu-gcct-lutein tablet tab PO DAILY tab 12/17/20 06/08/21 Previous Rx's Medication Instructions Recorded escitalopram oxalate 5 mg tablet 5 mg PO DAILY 30 Days #30 tab 12/24/20 simvastatin 5 mg tablet 5 mg PO DAILY #90 tab 02/21/21 atenolol 50 mg tablet 50 mg PO DAILY 90 Days #90 tab 02/25/21 lightweight Walker #1 ea 06/27/21 prednisone 20 mg tablet 20 mg PO DAILY 5 Days #5 tab 07/27/21 Allergies Allergy/AdvReac Type Severity Reaction Status Date / Time Penicillins Allergy Mild RASH Verified 06/08/21 11:18 acetaminophen [Percocet] Allergy Unknown nausea Verified 06/08/21 11:18 clindamycin [CLINDAMYCIN] Allergy Unknown FELT Verified 06/08/21 11:18 AWFUL/upset stomach penicillin V Allergy Unknown rash Verified 06/08/21 11:18 oxycodone [OXYCODONE] AdvReac Unknown STOMACH Verified 06/08/21 11:18 UPSET From [facility] Allergy Mild GI UPSET Uncoded 06/08/21 11:18 Review of Systems Review of Systems: Constitutional : No Weight loss, No Fever, No Chills, No Night Sweats, No Fatigue, No Malaise ENT/Mouth : No Hearing loss, No Ear Pain, No Nasal Congestion, No Sinus Pain, No Hoarseness, No sore throat, No Rhinorrhea, No Swallowing Difficulty Eyes: No Eye Pain, No Swelling, No Redness, No Foreign Body, No Discharge, No Vision Changes Cardiovascular : No Chest Pain, No SOB, No Dyspnea on Exertion, No Orthopnea, No Edema, No Palpitations Respiratory : No Cough, No Sputum, No Wheezing, No Smoke Exposure, No Dyspnea Gastrointestinal : No Nausea, No Vomiting, No Diarrhea, No Constipation, No abdominal Pain, No Hematochezia, No Melena Genitourinary : no irregular bleeding, No Dysuria, No Urinary Frequency, No Hematuria, No Urinary Incontinence, No Urgency, No Flank Pain, No Urinary Flow Changes, No Hesitancy Musculoskeletal : No joint pain, No Myalgias, No Joint Swelling Skin : No Skin Lesions, No rash Neuro : No Weakness, No Numbness, No Paresthesias, No Loss of Consciousness, No Dizziness, No Headache Psych : Anxiety/Panic, No Depression, No SI/HI/AH/VH, No Social Issues, Yes all other systems are reviewed and are negative [facility] Past Medical History Medical History (Updated 08/25/21 @ 14:29 by EN Zapien-) Asthma Cataracts, bilateral Cervical spondylosis Cholelithiasis Goiter Hypercholesterolemia Hypertension Impaired glucose tolerance Osteopenia Post-menopausal Problem of both ears Scoliosis Surgical History History of cataract surgery History of colonoscopy Hx of cholecystectomy Hx of tonsillectomy Status post total abdominal hysterectomy Family History Family History Father No problems noted. Mother No problems noted. Social History Social History Housing: Apartment Alcohol intake: never Patient Tobacco Use Status: Never used Tobacco Advance Directives: No service: No Current occupational status: retired and disabled Physical Exam Vital Signs: Vital Signs: Last Vital Signs Temp 97.9 F 08/25/21 13:03 Pulse 65 08/25/21 13:03 Resp 15 08/25/21 13:03 BP 156/80 H 08/25/21 13:03 Pulse Ox 97 08/25/21 13:03 Body Mass Index 22.4 Const: General: healthy appearing, no acute distress and well developed Nutritional Appearance: well nourished Orientation/consciousness: patient oriented x3 HENMT: Head: Yes normal to inspection, Yes normocephalic and Yes atraumatic Ears: hearing grossly normal bilaterally and external ears normal General nose exam: Normal external nose present Face and sinus: Yes normal facial exam Mouth: Normal oral and palatal mucosa present Throat: Yes posterior oropharynx normal Eyes: General: appearance normal, both eyes and all related structures Neck: Neck: Yes normal visual inspection, Yes full ROM and Yes trachea midline Thyroid: Thyroid normal Resp: Effort & Inspection: normal respiratory effort and able to speak in complete sentences Auscultation: clear to auscultation bilaterally Cardio: Jugular venous distension: no JVD Rate: regular rate Rhythm: regular rhythm Heart sounds: S1 normal heart sound present and S2 normal heart sound present GI: Inspection: Yes normal to inspection and No distended Palpation (GI): Soft to palpation, nontender, no guarding and No hepatosplenomegaly present Auscultation: normal bowel sounds : General: Yes no CVA tenderness Back/Spine/Pelvis: Back: no CVA tenderness Skin: General skin exam: elasticity normal, turgor normal and dry skin Neuro: General: patient oriented x3 Extrem: General: Yes normal to inspection Psych: Appearance: grossly normal Mental Status: mental status grossly normal Speech and movement: Normal speech and movement present Affect: normal affect Attitude: cooperative Thought process: Normal thought process present Thought content: other (Patient appears anxious) Judgement: Good judgement present (Psych) NIH Stroke Scale Level of Consciousness: Alert Level of Consciousness Questions: Answers both questions correctly Level of Consciousness Commands: Performs both tasks correctly Best Gaze: Normal Visual: No visual loss Facial Palsy: Normal Motor Arm (Right): No drift Motor Arm (Left): No drift Motor Leg (Right): No drift Motor Leg (Left): No drift Limb Ataxia: Absent Sensory: Normal Best Language: No aphasia Dysarthia: Normal Extinction and Inattention: No abnormality Score: 0 Course Course Course Narrative: 86 years old female with past medical history of anxiety, hyperlipidemia and hypertension is here today for experiencing increase in anxiety. Patient reports that for the last couple days she has been getting multiple phone calls from different companies asking for money. Patient reports that yesterday several people called her and request that lot of money from her. Patient has elder care services coming to the house every day with to help. Patient denies any medical issues at this time no CP, PND, syncope presyncope, palpitations, SOB with or without exertion. Patient denies any fatigue. Will call elder services, send urine. Patient on exam appears very calm. Her blood pressure is stable. Patient reports to me that she did not want come to the hospital however she was told by [facility] staff member to come in and get checked out. Patient reported to her numbness to her left foot as she was getting anxious, however she took Klonopin and now her numbness is gone. Patient's NIH scale is 0. Reevaluation(s) Reevaluation #1: Urinalysis negative will send patient home. Blood pressure is stable. Patient has no change in her condition. Case management called Elder Care Services who will send help to patient's house tomorrow. Patient will have her friend Raudel come and pick her up. Medical Decision Making Lab Data Labs: Lab Results 08/25/21 Range/Units 13:13 Urine Color YELLOW Urine Appearance CLEAR Urine pH 6.5 (5.0-8.0) Ur Specific [place] 1.010 (1.005-1.025) Urine Protein NEG (NEG-TRACE) MG/DL Urine Glucose (UA) NEG (NEG) MG/DL Urine Ketones NEG (NEG) MG/DL Urine Blood NEG (NEG) Urine Nitrite NEG (NEG) Ur Leukocyte Esterase NEG (NEG) Urine RBC 0-2 (0) /HPF Urine WBC 0-2 (0-4) /HPF Ur Squamous Epith Cells TRACE /LPF Urine Bacteria NONE /LPF Urine Mucus TRACE /LPF Discharge Plan Discharge Clinical Impression: Generalized anxiety disorder Patient Disposition: Home, Self-Care Instructions: Generalized Anxiety Disorder (ED) Additional Instructions: Your urinalysis was negative for any infection. Please follow-up with your PCP in 2-3 days. You may need extra medication to help with your and anxiety Prescriptions: No Action simvastatin 5 mg tablet 5 mg PO DAILY Qty: 90 RF: 1 atenolol 50 mg tablet 50 mg PO DAILY 90 Days Qty: 90 RF: 1 prednisone 20 mg tablet 20 mg PO DAILY 5 Days Qty: 5 RF: 0 cholecalciferol (vitamin D3) 25 mcg (1,000 unit) capsule 25 mcg PO DAILY RF: 0 lisinopril 5 mg tablet 5 mg PO DAILY RF: 0 clonazepam 0.5 mg tablet 0.5 mg PO DAILY PRNRF: 0 vmqyzqsz-qehgjic-eswe-lutein Tablet PO DAILY RF: 0 acetaminophen [Tylenol 8 Hour] 650 mg tablet extended release 650 mg PO Q12H PRNRF: 0 escitalopram oxalate 5 mg tablet 5 mg PO DAILY 30 Days Qty: 30 RF: 0 (DME) lightweight Walker See Rx Instructions .Route .MEDSUPPLY Qty: 1 RF: 0 Referrals: Po,Niall Hopson MD [Primary Care Provider] - 2 days (Anxiety,) Interventions: ED Discharge Assessment Last Done: 08/25/21 14:44 Discharge Date/Time: 08/25/21 14:45
[2021-08-25 13:03] VITALS: BP 156/80; PULSE 65; RESP 15; TEMP 36.6; O2SAT 97
[2021-08-25 13:26] LABS: Appearance Urine CLEAR; Color Urine YELLOW; Glucose Urine UA NEG (NEG); Leukocyte Esterase Urine NEG (NEG); Nitrite Urine NEG (NEG); PH 6.5 (5.0-8.0); Urine Blood NEG (NEG); Urine Ketones NEG (NEG); Urine Protein NEG (NEG-TRACE)
[2021-08-25 13:34] LABS: Mucus Urine TRACE /LPF; RBC Urine 0-2 /HPF (0); Squamous Epithelial Cell Urine TRACE /LPF; WBC Urine 0-2 /HPF (0-4)
--- NOTE | 2021-08-25 15:28 | MHC.CM.ED ---
Received case management consult from ABRAHAM Rico. Patient came to the ER due to anxiety. Patient reports issues with male caregivers from [facility]. T/W spoke with Eliana. [facility] manager rn case. Patient currently doesn't have any male caregivers. Patient has had multiple caregivers. She reports the same issues with all caregivers, male or female. Eliana identifies patient has a sig other named Raudel. Patient and Raudel have been together for about 20 years. Raudel is . His has dementia. Anytime Raudel is not available to Danielle, she starts having anxiety issues. This has been an ongoing issue. Even when caregivers have been changed, Danielle has the same repetitive concerns . She has even reported the same complaints to her PCP, Dr Schrader. Dr Schrader has recommended a psych consult. Patient has declined this recommendation. Trisha ROSARIO aware and will discharge patient home. Continue to monitor for d/c needs.
== END 2021-08-25 14:45 | disposition home or self-care (01) ==
PROVIDERS: Emergency Provider Emergency Medicine; PCP Internal Medicine
DX: F41.1 Generalized anxiety disorder (principal); I10 Essential (primary) hypertension; E78.00 Pure hypercholesterolemia, unspecified
CPT/HCPCS: 81001; 99283

== ENCOUNTER 2021-09-19 13:41 | Outpatient (REF) | payer MEDICARE, MEDICAID, SELFPAY ==
--- NOTE | 2021-09-21 11:00 | MHC.AU.AEV ---
Adult Audiological Evaluation Date of Visit: 09/19/21 Reason for Appointment: Patient reports that at nighttime when she is in bed she has been hearing a hissing sound. She has not noticed it during the daytime. Patient does not have significant concerns about her hearing ability during conversations. At nighttime, she lowers the volume of her television to not disturb her neighbors, but then she has difficulty hearing the television. She reports that her hearing was tested many years ago, and she was told her left ear is weaker than her right ear. Hearing Handicap Inventory Does a hearing problem cause you to feel embarrassed when meeting new people?: No Does a hearing problem cause you to feel frustrated when talking to members of your family?: No Do you have difficulty when someone speaks in a whisper?: Yes Do you feel handicapped by a hearing problem?: No Does a hearing problem cause you difficulty when visiting friends, relatives, or neighbors?: No Does a hearing problem cause you to attend pentecostal service services less often than you would like?: No Does a hearing problem cause you to have arguments with family members?: No Does a hearing problem cause you difficulty when listening to TV or radio?: No Do you feel that any difficult with your hearing limits or hampers your personal or social life?: No Does a hearing problem cause you difficulty when in a restaurants with relatives or friends?: No HHIE SCORE: 4 Based on HHIE score, patient has: No perceived hearing handicap Ear History: Ear Deformity: None Reported Recent Ear Drainage: None Reported Recent Ear Pain: None Reported Family History of Hearing Loss?: Recent Ear Infections: None Reported Ear Infections in Childhood: None Reported History of Ear Wax Buildup: None Reported Previous Ear Surgery: None Reported Ear used on the phone: Right Ear Blocked/Full Sensation in Ear(s): None Reported History of occupational noise exposure?: No History: No Medical History: Medical History: High Blood Pressure, Back problems (scoliosis) Otoscopy: Right Ear: Unremarkable Left Ear: Unremarkable Hearing Evaluation: Transducer(s) Used: Insert Earphones Method: Conventional Audiometry Stimuli Used: Pure Tones Right Ear: Description of Hearing: Moderate rising to mild and sloping to moderate sensorineural hearing loss Left Ear: Description of Hearing: Moderate rising to mild and sloping to moderate sensorineural hearing loss Speech Recognition Threshold (SRT): Method Used: Recorded Lists Stimuli Used: Spondee Words Right Ear: 30 dBHL Left Ear: 40 dBHL Word Discrimination: Method: Recorded Lists Word Lists Used:: W-22 Right Ear: 92% at 60 dBHL Left Ear: 72% at 65 dBHL Most Comfortable Level (MCL): Right Ear: 60 dBHL Left Ear: 65 dBHL Interpretation of Results: Patient presents with moderate rising to mild and sloping to moderate sensorineural hearing loss. With this degree of hearing loss, the patient may be able to get by listening in quiet, one-on-one settings, though some sounds or words may still be difficult to hear. If there was background noise, a larger group, or if the person talking was not directly in front of the patient, then should would have a more difficult time understanding conversation. Recommendations: Audiological re-evaluation in one year. Referral to Ear, Nose, and Throat (ENT) may be warranted to address left-ear asymmetry and hissing tinnitus. Audiologically, patient is a candidate for hearing aids, if she was interested. Based on discussions and observations with the patient, I do not think she is ready for hearing aids at this time. Patient feels she still hears okay in most conversations, and she spends most of her time in quiet, one-on-one settings. She also appears to have a strong sensitivity to noise, as her Most Comfortable Levels for speech were fairly close to her tonal thresholds. To help with the television, a product such as [employer] Control Ears would allow her to set the volume in the headset however loud she would like it without worry about disturbing her neighbors. Diagnosis: Primary Diagnosis: H90.3 Bilateral Sensorineural Hearing Loss Signature: Provider: Paulina Amin, [facility]
== END 2021-09-19 13:42 | disposition home or self-care (01) ==
LOC: HO.SH 13:41
PROVIDERS: Visit Provider Internal Medicine
DX: H90.3 Sensorineural hearing loss, bilateral (principal)
CPT/HCPCS: 92557

== ENCOUNTER 2021-10-02 11:55 | Emergency (ER) | payer MEDICARE, MEDICAID, SELFPAY ==
--- NOTE | ~2021-10-02 | XR_ITS ---
EXAMINATION: CHEST AND RIGHT SHOULDER CLINICAL INFORMATION: Fall with shoulder pain COMPARISON: Chest x-ray of May 05, 2021 TECHNIQUE: Two-view chest and three-view right shoulder FINDINGS: PA and lateral views of the chest do not demonstrate any evidence of acute parenchymal disease, pneumothorax, or pleural effusion. Heart normal size. No evidence of pulmonary edema. Retrocardiac density is seen likely related to hiatal hernia. Density about the inferior tip of the left scapula appears to represent superimposition of structures. 3 views of the left shoulder do not demonstrate any evidence of acute fracture or dislocation. There is some mild superior subluxation of the humeral head which may relate to rotator cuff injury. No significant glenohumeral joint abnormality is appreciated. There is some spurring undersurface of the distal clavicle. There is inferior spurring of the acromium with a bony density which may be related to subacromial bursitis or calcific tendinitis. XR/XR chest 2V IMPRESSION: No acute parenchymal disease within the chest. Hiatal hernia. Degenerative change of the right shoulder as described without evidence of acute fracture or dislocation.
--- NOTE | ~2021-10-02 | XR_ITS ---
EXAMINATION: CHEST AND RIGHT SHOULDER CLINICAL INFORMATION: Fall with shoulder pain COMPARISON: Chest x-ray of May 05, 2021 TECHNIQUE: Two-view chest and three-view right shoulder FINDINGS: PA and lateral views of the chest do not demonstrate any evidence of acute parenchymal disease, pneumothorax, or pleural effusion. Heart normal size. No evidence of pulmonary edema. Retrocardiac density is seen likely related to hiatal hernia. Density about the inferior tip of the left scapula appears to represent superimposition of structures. 3 views of the left shoulder do not demonstrate any evidence of acute fracture or dislocation. There is some mild superior subluxation of the humeral head which may relate to rotator cuff injury. No significant glenohumeral joint abnormality is appreciated. There is some spurring undersurface of the distal clavicle. There is inferior spurring of the acromium with a bony density which may be related to subacromial bursitis or calcific tendinitis. XR/XR shoulder RT min 2V IMPRESSION: No acute parenchymal disease within the chest. Hiatal hernia. Degenerative change of the right shoulder as described without evidence of acute fracture or dislocation.
--- NOTE | ~2021-10-02 | US_ITS ---
EXAMINATION: US VENOUS ULTRASOUND WITH DOPPLER LOWER EXTREMITY, LEFT CLINICAL INFORMATION: +[facility] COMPARISON: None TECHNIQUE: Ultrasound of the deep veins is performed from the hip to the calf with compression sonography and color and pulse Doppler assessment. Spectral analysis with color-flow imaging is performed. FINDINGS: There is normal venous compression and respiratory variation and augmented flow. The visualized common femoral vein, superficial femoral vein, profunda femoral vein, popliteal vein, and the trifurcation region shows no evidence of deep venous thrombosis. There is no significant popliteal fossa cyst. If the patient's symptoms persist, followup ultrasound in 5 days 7 days might be of value to exclude proximal propagation from a non-visualized calf vein. US/US venous duplex LE LT IMPRESSION: No DVT demonstrated in the left lower extremity.
--- NOTE | ~2021-10-02 | CT_ITS ---
EXAMINATION: CT HEAD WITHOUT CONTRAST CT CERVICAL SPINE WITHOUT CONTRAST CT MAXILLOFACIAL WITHOUT CONTRAST CLINICAL INFORMATION: Fall COMPARISON: CT facial bones 06/14/2019 TECHNIQUE: CT of the head, cervical spine, and maxillofacial structures was performed without intravenous contrast. Multiplanar reformats were rendered and reviewed. DOSE LOWERING TECHNIQUES: This CT examination was performed using dose optimization techniques as appropriate, variously including the following: - Automated exposure control - Adjustment of mA and/or kV according to patient size (this includes techniques or standardized protocols for targeted exams where dose is matched to indication/reason for exam; i.e. extremities or head) - Use of iterative reconstruction technique DLP: 1106 mGy-cm. FINDINGS: CT HEAD: No evidence of acute intracranial hemorrhage or extra-axial fluid collection. Periventricular white matter hypodensities, a nonspecific finding but most commonly due to chronic small vessel ischemic disease. No acute territorial infarction. 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 Ventricles are symmetric in configuration and normal in size. The basal cisterns are patent. The calvarium is intact. Limited views of the paranasal sinuses are unremarkable. Mastoid air cells are well aerated and middle ear cavities are clear. Limited views of the orbits demonstrate left-sided lens extraction. CT MAXILLOFACIAL: The patient is a edentulous. Paranasal sinuses are clear. Mastoid air cells are well aerated and middle ear cavities are clear. No acute, aggressive or erosive osseous lesion is identified. The temporomandibular joints are normally located. No bulky cervical adenopathy. Atherosclerosis. CT CERVICAL SPINE: Normal cervical lordosis. Facet joints are anatomically aligned bilaterally. Spinous processes are intact and well aligned. No prevertebral soft tissue swelling. The dens process is intact. The atlantodens articulation is within normal limits. The craniocervical junction is unremarkable. Multilevel degenerative disc disease with associated small anterior degenerative osteophytes and uncovertebral spurring. There is a 1.5 cm hypodense lesion associated with the left thyroid gland. CT/CT cervical spine wo con IMPRESSION: 1. No evidence of acute intracranial abnormality. Chronic changes as above. 2. Mild induration of the soft tissues overlying the forefoot. 3. No acute fracture within the maxillofacial structures or cervical spine. 4. Chronic degenerative changes of the cervical spine as above. 5. There is a 1.5 cm hypodense lesion associated with the left thyroid gland. Consider follow-up with dedicated thyroid ultrasound imaging if not already performed.
[2021-10-02 12:06] VITALS: BP 121/76; PULSE 77; RESP 18; TEMP 36; O2SAT 96; BMI 23.0
[2021-10-02 15:36] VITALS: BP 158/82; PULSE 64; RESP 16; O2SAT 100
--- NOTE | 2021-10-02 15:58 | ECG_ITS ---
Test Reason : FALL Blood Pressure : / mmHG Vent. Rate : 069 BPM Atrial Rate : 069 BPM P-R Int : 142 ms QRS Dur : 086 ms QT Int : 376 ms P-R-T Axes : 039 017 041 degrees QTc Int : 402 ms Normal sinus rhythm with sinus arrhythmia Normal ECG When compared with ECG of 24-MAY-2021 10:32, No significant change was found Referred By: Jerome Sprague Electronically Signed By:Timur Mckeon
--- NOTE | 2021-10-02 16:00 | ED_ITS ---
HPI - Fall General Chief Complaint: Fall Stated Complaint: fall Time Seen by Provider: 10/02/21 15:58 Source: patient Mode of arrival: ambulatory Limitations: no limitations History of Present Illness HPI Narrative: this is an 86-year-old female past medical history significant for hypertension, hypercholesterolemia, anxiety presenting to the emergency department 2 days status post fall at home with facial bruising, right shoulder pain and significant discomfort to her left calf. Patient tells me that she fe ll at home on Sunday, she was rushing to get to a doctor's appointment, she fell forward into a TV tray, face 1st, she tells me she landed on a rug. Patient states that she told her doctor that this happened and he advised her to go to the emergency department that day however she thought she could push through it . She tells me that today she has been having right shoulder discomfort and is noted that there is pain and swelling to her face, she also reports the discomfort/ heaviness or left lower extremity that started about 2 days ago. Patient is not on blood thinners. She denies chest pain, shortness of breath, fevers, chills, nausea, vomiting, abdominal pain. She does however tell me she has been feeling more weak than usual. complaint: fall Onset (ago): day(s) (2) Fall from: standing Fall witnessed: no Place fall occurred: home Loss of consciousness: none Prolonged down time: no Symptoms prior to fall: none Context: other (unsure ) Location of injury: head, face and other (right shoulder ) Severity: severe Quality: aching Associated symptoms (after fall): denies Related Data Home Medications Medication Instructions Recorded Confirmed acetaminophen 650 mg 650 mg PO Q12H PRN 12/17/20 06/08/21 tablet,extended release (Tylenol 8 Hour) cholecalciferol (vitamin D3) 25 25 mcg PO DAILY 12/17/20 06/08/21 mcg (1,000 unit) capsule lisinopril 5 mg tablet 5 mg PO DAILY 12/17/20 06/08/21 [id number]-[id number]-dvmi-lutein tablet tab PO DAILY tab 12/17/20 06/08/21 Previous Rx's Medication Instructions Recorded escitalopram oxalate 5 mg tablet 5 mg PO DAILY 30 Days #30 tab 12/24/20 lightweight Walker #1 ea 06/27/21 atenolol 50 mg tablet 50 mg PO DAILY 90 Days #90 tab 09/05/21 simvastatin 5 mg tablet 5 mg PO DAILY #90 tab 09/05/21 clonazepam 0.5 mg tablet 0.5 mg PO DAILY PRN 30 Days #30 tab 09/08/21 Allergies Allergy/AdvReac Type Severity Reaction Status Date / Time Penicillins Allergy Mild RASH Verified 09/30/21 12:29 acetaminophen [Percocet] Allergy Unknown nausea Verified 09/30/21 12:29 clindamycin [CLINDAMYCIN] Allergy Unknown FELT Verified 09/30/21 12:29 AWFUL/upset stomach penicillin V Allergy Unknown rash Verified 09/30/21 12:29 oxycodone [OXYCODONE] AdvReac Unknown STOMACH Verified 09/30/21 12:29 UPSET From [facility] Allergy Mild GI UPSET Uncoded 06/08/21 11:18 Review of Systems Review of Systems: Constitutional : No Weight loss, No Fever, No Chills, No Fatigue, No Malaise ENT/Mouth : No sore throat, No Rhinorrhea Eyes: No Eye Pain, No Swelling, No Redness Cardiovascular : No Chest Pain, No SOB, No Dyspnea on Exertion, No Orthopnea, No Edema, No Palpitations, + calf pain Respiratory : No Cough, No Sputum, No Wheezing Gastrointestinal : No Nausea, No Vomiting, No Diarrhea, No Constipation, No abdominal Pain, No Hematochezia, No Melena Genitourinary : No Dysuria, No Urinary Frequency, No Hematuria, Musculoskeletal : + joint pain, No Myalgias, No Joint Swelling Skin : No Skin Lesions, No rash, + bruising to face Neuro : No Weakness, No Numbness, No Dizziness, No Headache All other systems reviewed and are negative Yes all other systems are reviewed and are negative [facility] Past Medical History Attestation statement: The following information was validated with the patient. Source: old records reviewed and nursing notes reviewed Medical History Asthma Cataracts, bilateral Cervical spondylosis Cholelithiasis Goiter Hypercholesterolemia Hypertension Impaired glucose tolerance Osteopenia Post-menopausal Problem of both ears Scoliosis Surgical History History of cataract surgery History of colonoscopy Hx of cholecystectomy Hx of tonsillectomy Status post total abdominal hysterectomy Family History Family History Father No problems noted. Mother No problems noted. Social History Social History Housing: Apartment Alcohol intake: never Patient Tobacco Use Status: Never used Tobacco e-Cigarette/Vaping Use: Never Used Second Hand Smoke Exposure: No Use of substances other than those prescribed or required for medical reasons: No Advance Directives: No Advance Directives Information Provided: Yes service: No Current occupational status: retired and disabled Physical Exam Vital Signs: Vital Signs: Last Vital Signs Temp 96.8 F 10/02/21 12:06 Pulse 80 10/02/21 16:18 Resp 16 10/02/21 15:36 BP 148/85 H 10/02/21 16:18 Pulse Ox 100 10/02/21 15:36 BMI result Body Mass Index 23.0 vital signs are stable, however, patient noted to be slightly hypertensive, patient has a history of hypertension. Appearance: Alert.? Oriented X3.? No acute distress.? Head: Normocephalic, atraumatic, no step-offs or deformities Eyes: Pupils equal, round and reactive to light.? ENT: Pharynx normal.? Neck: Normal inspection.? Neck supple.? CVS: Normal heart rate and rhythm.? Pulses normal.? Respiratory: No respiratory distress.? Breath sounds normal.? Abdomen: Soft and nontender.? Skin: Skin warm and dry.? Normal skin color.? Normal skin turgor.?+ raccoon eyes (picture ataached) + bruising to face bilateral periorbital bruising and bruising to the forehead Extremities: No lower extremity edema.? + left calf tenderness to palpation right normal +greg sign on left right negative. 5/5 strength to bilateral upper and lower extremities + pain with ROM of right shoulder. Back: No midline tenderness, no C-spine tenderness, full range of motion, no CVA tenderness bilaterally Neuro: Oriented X 3.? No motor deficit.? No sensory deficit. Course Reevaluation(s) Reevaluation #1: Lab show no acute infection, no anemia, coags within normal limits. No acute electrolyte abnormalities. Urine clean. Covid negative. Chest x-ray negative. US no DVT Time: 18:57 Reevaluation #2: CT of the head, cervical spine and facial bones show no acute fractures, no intracranial hemorrhage is. It does show mild induration of the s oft tissues overlying the forefoot. It also shows a 1.5 cm hypodense lesion associated with the left thyroid gland, I will advise patient to follow-up with her PCP for further imaging at this time all patient's labs are within normal limits. CTs with no acute findings. I have discussed the finding of the thyroid lesion with the patient she will follow-up with her primary care provider. I have advised the patient to return to the emergency department with new or worsening symptoms. I feel comfortable with discharge home. Time: 18:58 MDM - Fall MDM Narrative Medical decision making narrative: 1600 86-year-old female past medical history significant for hypertension, hypercholesterolemia, anxiety presents to the emergency department with complaints of bilateral periorbital bruising, bruising to the forehead, right shoulder pain, and left lower extremity heaviness and pain to calf x2 days status post fall. Patient is not on blood thinners. Upon physical examination patient appears to be in no acute distress. S1-S2 appreciated free of murmurs. No pain with palpation of chest. Lungs are clear. Abdomen soft nontender nondistended. No focal neuro deficits. There is calf tenderness to palpation on the left side, positive Homans sign. There is bila teral periorbital bruising noted and bruising noted to the forehead as pictured in the chart. Patient's extraocular movements intact. Pupils equal round and reactive to light. Head normocephalic, atraumatic. Full ROM to the right shoulder with pain. Plan urne, basic labs, xrays, ct Medical Records Attestation: I reviewed the patient's medical records. Lab Data Attestation: I reviewed the patient's lab results. Result diagrams: 10/02/21 16:12 10/02/21 16:12 Labs: Lab Results 10/02/21 10/02/21 10/02/21 Range/Units 16:12 16:12 16:12 WBC 5.8 (4.8-10.8) X10*3/uL RBC 4.58 (4.20-5.50) X10*6/uL Hgb 14.0 (12.0-16.0) g/dl Hct 41.7 (37.0-47.0) % MCV 91.0 (80.0-98.0) fL MCH 30.6 (27.0-33.0) pg MCHC 33.6 (31.0-35.0) g/dl RDW 13.0 (11.0-16.0) % Plt Count 183 (160-400) X10*3/uL MPV 10.1 (9.4-12.3) fL Immature Gran % (Auto) 0.3 (0.0-0.4) % Neut % (Auto) 50.3 (45-73) % Lymph % (Auto) 38.4 (20-40) % [place] % (Auto) 8.3 (2-11) % Eos % (Auto) 2.4 (0-4) % Baso % (Auto) 0.3 (0-2) % Lymph # (Auto) 2.2 (1.2-4.9) X10*3/uL [place] # (Auto) 0.5 (0.1-1.2) X10*3/uL Eos # (Auto) 0.1 (0.0-0.4) X10*3/uL Baso # (Auto) 0.0 (0.0-0.2) X10*3/uL Abs Immat Gran (auto) 0.02 (0.00-0.03) X10*3/uL Absolute Neuts (auto) 2.9 (2.0-8.3) x10*3/uL Absolute Nucleated RBC 0.000 (0.0-0.012) X10*3/uL Nucleated RBC % (auto) 0.0 (0.0-0.2) /100WBC PT 10.7 (9.9-13.0) SEC INR 0.9 (0.9-1.1) APTT 33.3 (24.1-38.0) SEC Sodium 139 (135-145) mmol/L Potassium 4.4 (3.3-5.1) mmol/L Chloride 106 (96-108) mmol/L Carbon Dioxide 26 (22-29) mmol/L Anion Gap 11 L (12-20) BUN 18 H (9-16) mg/dL Creatinine 0.82 (0.5-1.4) mg/dL Estim Creat Clear Calc 38.9 Estimated GFR > 60 Random Glucose 89 (60-115) mg/dL Calcium 9.9 (8.4-10.2) mg/dL Magnesium 2.4 (1.6-2.6) mg/dL Total Bilirubin 0.6 (0.0-1.0) mg/dL AST 25 (5-31) U/L ALT 19 (0-31) U/L Alkaline Phosphatase 56 (39-117) U/L Total Creatine Kinase 131 (26-140) U/L Troponin I High Sens (<3.5-17.0) ng/L Total Protein 6.9 (6.5-8.0) g/dL Albumin 4.1 (3.5-5.0) g/dL Urine Color Urine Appearance Urine pH (5.0-8.0) Ur Specific [place] (1.005-1.025) Urine Protein (NEG-TRACE) MG/DL Urine Glucose (UA) (NEG) MG/DL Urine Ketones (NEG) MG/DL Urine Blood (NEG) Urine Nitrite (NEG) Ur Leukocyte Esterase (NEG) Urine RBC (0) /HPF Urine WBC (0-4) /HPF Ur Squamous Epith Cells /LPF Urine Bacteria /LPF COVID-19 ([facility]) (Negative) COVID-19 Clin Com 10/02/21 10/02/21 10/02/21 Range/Units 16:12 16:12 16:16 WBC (4.8-10.8) X10*3/uL RBC (4.20-5.50) X10*6/uL Hgb (12.0-16.0) g/dl Hct (37.0-47.0) % MCV (80.0-98.0) fL MCH (27.0-33.0) pg MCHC (31.0-35.0) g/dl RDW (11.0-16.0) % Plt Count (160-400) X10*3/uL MPV (9.4-12.3) fL Immature Gran % (Auto) (0.0-0.4) % Neut % (Auto) (45-73) % Lymph % (Auto) (20-40) % [place] % (Auto) (2-11) % Eos % (Auto) (0-4) % Baso % (Auto) (0-2) % Lymph # (Auto) (1.2-4.9) X10*3/uL [place] # (Auto) (0.1-1.2) X10*3/uL Eos # (Auto) (0.0-0.4) X10*3/uL Baso # (Auto) (0.0-0.2) X10*3/uL Abs Immat Gran (auto) (0.00-0.03) X10*3/uL Absolute Neuts (auto) (2.0-8.3) x10*3/uL Absolute Nucleated RBC (0.0-0.012) X10*3/uL Nucleated RBC % (auto) (0.0-0.2) /100WBC PT (9.9-13.0) SEC INR (0.9-1.1) APTT (24.1-38.0) SEC Sodium (135-145) mmol/L Potassium (3.3-5.1) mmol/L Chloride (96-108) mmol/L Carbon Dioxide (22-29) mmol/L Anion Gap (12-20) BUN (9-16) mg/dL Creatinine (0.5-1.4) mg/dL Estim Creat Clear Calc Estimated GFR Random Glucose (60-115) mg/dL Calcium (8.4-10.2) mg/dL Magnesium (1.6-2.6) mg/dL Total Bilirubin (0.0-1.0) mg/dL AST (5-31) U/L ALT (0-31) U/L Alkaline Phosphatase (39-117) U/L Total Creatine Kinase (26-140) U/L Troponin I High Sens < 3.5 (<3.5-17.0) ng/L Total Protein (6.5-8.0) g/dL Albumin (3.5-5.0) g/dL Urine Color YELLOW Urine Appearance CLEAR Urine pH 6.0 (5.0-8.0) Ur Specific [place] 1.010 (1.005-1.025) Urine Protein NEG (NEG-TRACE) MG/DL Urine Glucose (UA) NEG (NEG) MG/DL Urine Ketones NEG (NEG) MG/DL Urine Blood NEG (NEG) Urine Nitrite NEG (NEG) Ur Leukocyte Esterase NEG (NEG) Urine RBC 0-2 (0) /HPF Urine WBC 0 (0-4) /HPF Ur Squamous Epith Cells TRACE /LPF Urine Bacteria NONE /LPF COVID-19 ([facility]) Negative (Negative) COVID-19 Clin Com See Note Imaging Data chest x-ray and right shoulder: Attestation: I personally reviewed and interpreted this imaging study as follows: Radiologist's impression: XR/XR shoulder RT min 2V IMPRESSION: No acute parenchymal disease within the chest. Hiatal hernia. ? Degenerative change of the right shoulder as described without evidence of acute fracture or dislocation.? ultrasound of left lower extremity venous: Attestation: I personally reviewed and interpreted this imaging study as follows: Radiologist's impression: US/US venous duplex LE LT IMPRESSION: No DVT demonstrated in the left lower extremity. CT head, facial bones, cervical spine: Attestation: I personally reviewed and interpreted this imaging study as follows: Radiologist's impression: CT/CT cervical spine wo con IMPRESSION: ? 1. No evidence of acute intracranial abnormality. Chronic changes as above. 2. Mild induration of the soft tissues overlying the forefoot. 3. No acute fracture within the maxillofacial structures or cervical spine. 4. Chronic degenerative changes of the cervical spine as above. 5. There is a 1.5 cm hypodense lesion associated with the left thyroid gland. Consider follow-up with dedicated thyroid ultrasound imaging if not already performed. ECG Data Attestation: I personally reviewed and interpreted this ECG as follows: ECG interpretation date: 10/02/21 ECG interpretation time: 16:27 Prior ECG tracings: available for review Interpretation: Ventricular rate of 69, WA normal, QRS normal, QT / QTC normal EKG with normal sinus rhythm with sinus arrhythmia no ST elevations or inversions no acute ischemia. No acute changes when compared with EKG from May 24, 2021 Critical Care Time Critical Care Time Critical Care Time: No Discharge Plan Discharge Clinical Impression: Fall, Periorbital ecchymosis, Thyroid lesion, Arthritis of shoulder region, right Patient Disposition: Home, Self-Care Instructions: [place] (ED), Fall Prevention for Older Adults (ED), Fall Prevention (ED) Additional Instructions: Take your medications as prescribed. If you were prescribed antibiotics today, it is important that you take your medication to their entirety, do not skip any doses, do not finish them early. Follow-up with your primary care provider this week. Today you were found to have a 1.5 cm lesion on the left upper lobe of the thyroid, please follow-up with her primary care provider as this requires further evaluation, and likely an ultrasound. Return to the emergency department with new or worsening symptoms. In case of emergency call 911 Prescriptions: No Action atenolol 50 mg tablet 50 mg PO DAILY 90 Days Qty: 90 RF: 1 simvastatin 5 mg tablet 5 mg PO DAILY Qty: 90 RF: 1 clonazepam 0.5 mg tablet 0.5 mg PO DAILY PRN (Reason: anxiety) 30 Days Qty: 30 RF: 0 cholecalciferol (vitamin D3) 25 mcg (1,000 unit) capsule 25 mcg PO DAILY RF: 0 lisinopril 5 mg tablet 5 mg PO DAILY RF: 0 uvmojxfz-lhxgjkv-sdwf-lutein Tablet PO DAILY RF: 0 acetaminophen [Tylenol 8 Hour] 650 mg tablet extended release 650 mg PO Q12H PRNRF: 0 escitalopram oxalate 5 mg tablet 5 mg PO DAILY 30 Days Qty: 30 RF: 0 (DME) lightweight Walker See Rx Instructions .Route .MEDSUPPLY Qty: 1 RF: 0 Referrals: Po,Niall Hopson MD [Primary Care Provider] - 2 days
[2021-10-02 16:17] VITALS: BP 163/86; BP 169/80; PULSE 71
[2021-10-02 16:18] VITALS: BP 148/85; PULSE 80
[2021-10-02 16:18] LABS: MANUAL DIFF FLAG NO
[2021-10-02 16:19] LABS: Basophils Percent Auto 0.3 % (0-2); Eosinophils Absolute Auto 0.1 X10*3/uL (0.0-0.4); Eosinophils Percent Auto 2.4 % (0-4); Hematocrit 41.7 % (37.0-47.0); Imm Gran Abs Auto 0.02 X10*3/uL (0.00-0.03); Imm Gran Pct Auto 0.3 % (0.0-0.4); Lymphocytes Absolute Auto 2.2 X10*3/uL (1.2-4.9); Lymphocytes Percent Auto 38.4 % (20-40); Mean Corpuscular HGB Conc 33.6 g/dl (31.0-35.0); Mean Corpuscular Hemoglobin 30.6 pg (27.0-33.0); Mean Platelet Volume 10.1 fL (9.4-12.3); Monocytes Absolute Auto 0.5 X10*3/uL (0.1-1.2); Monocytes Percent Auto 8.3 % (2-11); Neutrophils Absolute Auto 2.9 x10*3/uL (2.0-8.3); Neutrophils Percent Auto 50.3 % (45-73); Platelet Count 183 X10*3/uL (160-400); Red Blood Count 4.58 X10*6/uL (4.20-5.50); White Blood Count 5.8 X10*3/uL (4.8-10.8)
[2021-10-02 16:26] LABS: INTERNATIONAL NORM RATIO 0.9 (0.9-1.1); Prothrombin Time 10.7 SEC (9.9-13.0)
[2021-10-02 16:29] LABS: Appearance Urine CLEAR; Color Urine YELLOW; Glucose Urine UA NEG (NEG); Leukocyte Esterase Urine NEG (NEG); Nitrite Urine NEG (NEG); Urine Blood NEG (NEG); Urine Ketones NEG (NEG); Urine Protein NEG (NEG-TRACE)
[2021-10-02 16:29] LABS: Partial Thromboplastin Time 33.3 SEC (24.1-38.0)
--- NOTE | 2021-10-02 16:30 | PC.NURSE ---
PATIENT WAS ASSISTED TO BEDPAN .
[2021-10-02 16:35] LABS: RBC Urine 0-2 /HPF (0); Squamous Epithelial Cell Urine TRACE /LPF; WBC Urine 0 /HPF (0-4)
[2021-10-02 16:36] LABS: Alanine Aminotransferase 19 U/L (0-31); Albumin Level 4.1 g/dL (3.5-5.0); Alkaline Phosphatase 56 U/L (39-117); Anion Gap 11 (12-20); Aspartate Amino Transferase 25 U/L (5-31); Bilirubin Total 0.6 mg/dL (0.0-1.0); Blood Urea Nitrogen 18 mg/dL (9-16); Calcium 9.9 mg/dL (8.4-10.2); Carbon Dioxide 26 mmol/L (22-29); Chloride 106 mmol/L (96-108); Creatinine Clr Calc Pharmacy 38.9; Estimated Glomerular Filt Rate > 60; Glucose Random 89 mg/dL (60-115); Magnesium 2.4 mg/dL (1.6-2.6); Potassium 4.4 mmol/L (3.3-5.1); Sodium 139 mmol/L (135-145); Total Protein 6.9 g/dL (6.5-8.0)
[2021-10-02 16:39] LABS: Troponin-I High Sensitivity < 3.5 ng/L (<3.5-17.0)
[2021-10-02 16:51] LABS: COVID-19 Test Negative (Negative)
[2021-10-02 19:37] VITALS: BP 148/72; PULSE 74; RESP 16; TEMP 36.6; O2SAT 99
== END 2021-10-02 20:02 | disposition home or self-care (01) ==
PROVIDERS: Physician Assistant; Emergency Provider Emergency Medicine; PCP Internal Medicine
DX: S00.12XA Contusion of left eyelid and periocular area, initial encounter (principal); S00.11XA Contusion of right eyelid and periocular area, initial encounter; M19.011 Primary osteoarthritis, right shoulder; E07.89 Other specified disorders of thyroid; M79.662 Pain in left lower leg; I10 Essential (primary) hypertension; W18.30XA Fall on same level, unspecified, initial encounter; Y93.9 Activity, unspecified; Y92.009 Unspecified place in unspecified non-institutional (private) residence as the place of occurrence of the external cause; Y99.9 Unspecified external cause status; Z20.822 Contact with and (suspected) exposure to COVID-19
CPT/HCPCS: 36415; 70450; 70486; 71046; 72125; 73030; 80053; 81001; 82550; 83735; 84484; 85025; 85610; 85730; 87635; 93005; 93971; 99285

== ENCOUNTER 2022-08-17 10:52 | Emergency (ER) | payer MEDICARE, MEDICAID, SELFPAY ==
--- NOTE | ~2022-08-17 | XR_ITS ---
EXAMINATION: LEFT FOOT AND ANKLE CLINICAL INFORMATION: Pain COMPARISON: February 19, 2018 and October 10, 2017. TECHNIQUE: Three-view left foot and AP and oblique view of the left ankle FINDINGS: Left ankle: There is osteopenia of visualized bones. No acute fracture or dislocation is evident. Ankle mortise appears intact. Edema is present. No significant change in appearance. Left foot: There is diffuse osteopenia present. There is limited evaluation of the toes due to flexion deformity of the metatarsal phalangeal joints and flexion at the mid interphalangeal joints. There is severe hallux valgus deformity first metatarsophalangeal joint. There is stable sclerosis of the shaft of the second metatarsal without destructive findings. There is severe degenerative change of the tarsometatarsal joints with joint space narrowing sclerosis and spurring. There appears to be a subchondral cyst or erosion about the distal medial cuneiform. No definite acute fracture identified. XR/XR foot LT min 3V IMPRESSION: Diffuse osteopenia. Degenerative changes as described above. Stable appearance compared to previous studies.
--- NOTE | ~2022-08-17 | XR_ITS ---
EXAMINATION: LEFT FOOT AND ANKLE CLINICAL INFORMATION: Pain COMPARISON: February 19, 2018 and October 10, 2017. TECHNIQUE: Three-view left foot and AP and oblique view of the left ankle FINDINGS: Left ankle: There is osteopenia of visualized bones. No acute fracture or dislocation is evident. Ankle mortise appears intact. Edema is present. No significant change in appearance. Left foot: There is diffuse osteopenia present. There is limited evaluation of the toes due to flexion deformity of the metatarsal phalangeal joints and flexion at the mid interphalangeal joints. There is severe hallux valgus deformity first metatarsophalangeal joint. There is stable sclerosis of the shaft of the second metatarsal without destructive findings. There is severe degenerative change of the tarsometatarsal joints with joint space narrowing sclerosis and spurring. There appears to be a subchondral cyst or erosion about the distal medial cuneiform. No definite acute fracture identified. XR/XR ankle LT 2V IMPRESSION: Diffuse osteopenia. Degenerative changes as described above. Stable appearance compared to previous studies.
--- NOTE | ~2022-08-17 | XR_ITS ---
EXAMINATION: XR CHEST CLINICAL INFORMATION: Chest pain COMPARISON: None TECHNIQUE: Frontal view of the chest was obtained. FINDINGS: No significant abnormality is noted involving the heart, lungs, mediastinum, bony thorax or soft tissues. Again noted is a hiatal hernia. XR/XR chest 1V IMPRESSION: No acute intrathoracic disease. Hiatal hernia.
--- NOTE | ~2022-08-17 | US_ITS ---
EXAMINATION: US VENOUS ULTRASOUND WITH DOPPLER LOWER EXTREMITY, LEFT CLINICAL INFORMATION: Left lower extremity pain COMPARISON: 10/02/2021 TECHNIQUE: Ultrasound of the deep veins is performed from the hip to the calf with compression sonography and color and pulse Doppler assessment. Spectral analysis with color-flow imaging is performed. FINDINGS: There is normal venous compression and respiratory variation and augmented flow. The visualized common femoral vein, superficial femoral vein, profunda femoral vein, popliteal vein, and the trifurcation region shows no evidence of deep venous thrombosis. There is a 4.9 x 1.5 x 2.8 cm Ramires's cyst present, new since the prior study. If the patient's symptoms persist, followup ultrasound in 5 days 7 days might be of value to exclude proximal propagation from a non-visualized calf vein. US/US venous duplex LE LT IMPRESSION: No DVT demonstrated in the left lower extremity. New Ramires's cyst
[2022-08-17 11:03] VITALS: BP 156/96; PULSE 109; O2SAT 96
--- NOTE | 2022-08-17 11:16 | ECG_ITS ---
Test Reason : CP Blood Pressure : / mmHG Vent. Rate : 087 BPM Atrial Rate : 087 BPM P-R Int : 146 ms QRS Dur : 086 ms QT Int : 334 ms P-R-T Axes : 044 031 044 degrees QTc Int : 401 ms Sinus rhythm with marked sinus arrhythmia with with occasional Premature ventricular complexes Low voltage QRS Borderline ECG When compared with ECG of 02-OCT-2021 16:27, Premature ventricular complexes are new Referred By: Sary Domingo Electronically Signed By:PA COLON MD
[2022-08-17 11:18] VITALS: BP 148/73; PULSE 98; RESP 16; TEMP 36.9; O2SAT 96; BMI 22.1
[2022-08-17] MEDS: clonazePAM 0.5 MG TABLET PO (11:41)
--- NOTE | 2022-08-17 12:01 | ED_ITS ---
HPI - General Adult General Chief complaint: Extremity Injury, Lower Stated complaint: L LEG PAIN,NO REPORTED FALL PER EMS Time Seen by Provider: 08/17/22 11:04 Source: patient and EMS Mode of arrival: EMS History of Present Illness HPI narrative: 87-year-old female with a past medical history of asthma, hyperlipidemia, hypertension, anxiety, presenting to the ED via EMS complaining of left foot pain radiating up lower extremity since this morning. Also reports intermittent epigastric discomfort. Denies known injury/trauma or fall, numbness, tingling, weakness, is SOB, CP, abdominal pain, nausea, vomiting Patient is poor historian Onset (ago): hour(s) Related Data Home Medications Medication Instructions Recorded Confirmed acetaminophen 650 mg 650 mg PO Q12H PRN 12/17/20 01/09/22 tablet,extended release (Tylenol 8 Hour) cholecalciferol (vitamin D3) 25 25 mcg PO DAILY 12/17/20 01/09/22 mcg (1,000 unit) capsule oxpkbhab-naujjkd-qjpk-lutein tablet tab PO DAILY 12/17/20 01/09/22 Previous Rx's Medication Instructions Recorded lightweight Walker #1 ea 06/27/21 clonazepam 0.5 mg tablet 0.5 mg PO DAILY PRN anxiety 30 12/09/21 days #30 tabs cane #1 ea 12/15/21 QUAD CANE #1 ea 12/16/21 atenolol 50 mg tablet 50 mg PO DAILY 90 days #90 tabs 03/13/22 metronidazole 1 % topical gel 1 appl topical BEDTIME #60 grams 03/13/22 (Metrogel) simvastatin 5 mg tablet 5 mg PO DAILY #90 tabs 03/13/22 Allergies Allergy/AdvReac Type Severity Reaction Status Date / Time Penicillins Allergy Mild RASH Verified 08/09/22 13:55 acetaminophen [Percocet] Allergy Unknown nausea Verified 08/09/22 13:55 clindamycin [CLINDAMYCIN] Allergy Unknown FELT Verified 08/09/22 13:55 AWFUL/upset stomach penicillin V Allergy Unknown rash Verified 08/09/22 13:55 oxycodone [OXYCODONE] AdvReac Unknown STOMACH Verified 08/09/22 13:55 UPSET From [facility] Allergy Mild GI UPSET Uncoded 08/09/22 13:55 Review of Systems Review of Systems: Constitutional: No Fever, No Chills, No Fatigue, No Malaise ENT/Mouth: No Ear Pain, No Nasal Congestion, No Sinus Pain, No sore throat, No Rhinorrhea, No Swallowing Difficulty Eyes: No Eye Pain, No Swelling, No Redness, No Vision Changes Cardiovascular: No Chest Pain, No SOB, No Dyspnea on Exertion, No Orthopnea, No Edema, No Palpitations Respiratory: No Cough, No Sputum, No Dyspnea Gastrointestinal: No Nausea, No Vomiting, No Diarrhea, No Constipation, + Abdominal pain Genitourinary: No Dysuria, No Urinary Frequency, No Hematuria, No Urinary Incontinence/retention, No Flank Pain, No Urinary Flow Changes, No Hesitancy Musculoskeletal: + joint pain, No Myalgias, No Joint Swelling Skin: No Skin Lesions, No rash Neuro: No Weakness, No Numbness, No Paresthesias, No Loss of Consciousness, No Dizziness, No Headache Yes all other systems are reviewed and are negative Constitutional: Constitutional: Reports as per [facility] Past Medical History Attestation statement: The following information was validated with the patient. Medical History Asthma Cataracts, bilateral Cervical spondylosis Cholelithiasis Goiter Hypercholesterolemia Hypertension Impaired glucose tolerance Osteopenia Post-menopausal Problem of both ears Scoliosis Surgical History History of cataract surgery History of colonoscopy Hx of cholecystectomy Hx of tonsillectomy Status post total abdominal hysterectomy Family History Family History Father No problems noted. Mother No problems noted. Social History Social History Housing: Apartment Alcohol intake: never Patient Tobacco Use Status: Never used Tobacco e-Cigarette/Vaping Use: Never Used Second Hand Smoke Exposure: No Advance Directives: No service: No Current occupational status: retired and disabled Cognitive needs: No Hearing needs: No Vision needs: Yes Physical Exam ED Vital Signs: Vital Signs - 24 hr 08/17/22 11:18 Temperature 98.5 F Pulse Rate 98 Respiratory Rate 16 Blood Pressure 148/73 H Pulse Oximetry 96 Oxygen Delivery Method Room Air BMI result Body Mass Index 22.1 Const General: cooperative, comfortable, no acute distress and anxious Orientation/consciousness: patient oriented x3 Limitations: no limitations HENMT Head: Yes normal to inspection and Yes atraumatic Ears: hearing grossly normal bilaterally General nose exam: Normal external nose present Face and sinus: Yes normal facial exam Eyes General: appearance normal, both eyes and all related structures EOM: EOMs intact bilaterally Neck Neck: Yes normal visual inspection and Yes no meningeal signs Resp Effort & Inspection: normal respiratory effort and no respiratory distress Auscultation: clear to auscultation bilaterally, no crackles, no rales, no rhonchi and no wheezes Cardio Rate: regular rate Heart sounds: S1 normal heart sound present and S2 normal heart sound present Peripheral pulses: Peripheral pulses 2+ throughout GI Inspection: Yes normal to inspection Palpation (GI): Soft to palpation, nontender, no guarding and not rigid General: Yes no CVA tenderness Back/Spine/Pelvis Back: no CVA tenderness Skin Rashes: no rashes Wounds: no wounds Neuro General: patient oriented x3, tone normal, moves all extremities, no meningeal signs, no focal motor deficits and CN's II-XI intact bilaterally Extrem Other: Left foot without noted deformity. Lateral malleolus tender to palpation. Pulses intact. Sensation intact to light touch. No appreciable edema, + left calf tenderness General: Yes normal to inspection Course Course Course Narrative: -1251--initial troponin 6.2 > will obtain 3 hour drinking. Labs otherwise unremarkable XR chest 1V IMPRESSION: No acute intrathoracic disease. Hiatal hernia. XR foot LT min 3V/XR ankle LT 2V IMPRESSION: Diffuse osteopenia. ? Degenerative changes as described above. ? Stable appearance compared to previous studies.? US venous duplex LE LT IMPRESSION: No DVT demonstrated in the left lower extremity. New Ramires's cyst -1651--repeat troponin 6.4, CA unlikely Results discussed with patient including worrisome signs and symptoms and strict return precautions, and when to return to the emergency department. They verbalized understanding and feel safe for discharge at this time. Medical Decision Making [facility] Narrative Medical decision making narrative: 87-year-old female with a past medical history of asthma, hyperlipidemia, hypertension, anxiety, presenting to the ED via EMS complaining of left foot pain radiating up lower extremity since this morning. Also reports intermittent epigastric discomfort. On exam vital signs stable, NAD, anxious, poor hist orian, exam with noted left ankle and calf tenderness, no appreciable deformity, sensation intact, pulses intact. Lungs CTA. Concern for sprain vs fracture vs ?DVT vs arthralgia. Rule out atypical ACS. Low suspicion for PE, no evidence of infection. Compartments soft, no evidence compartment syndrome Plan: EKG, labs, x-ray, venous duplex ultrasound, anticipate discharge home Medical Records Medical records reviewed: Yes I reviewed the patient's medical records. Lab Data Lab results reviewed: Yes I reviewed the patient's lab results. Result diagrams: 08/17/22 12:08/17/22 12: Labs: Lab Results 08/17/22 08/17/22 08/17/22 Range/Units 12: 12: 12:01 WBC 5.1 (4.8-10.8) X10*3/uL RBC 4.42 (4.20-5.50) X10*6/uL Hgb 13.4 (12.0-16.0) g/dl Hct 38.9 (37.0-47.0) % MCV 88.0 (80.0-98.0) fL MCH 30.3 (27.0-33.0) pg MCHC 34.4 (31.0-35.0) g/dl RDW 13.0 (11.0-16.0) % Plt Count 168 (160-400) X10*3/uL MPV 9.8 (9.4-12.3) fL Immature Gran % (Auto) 0.2 (0.0-0.4) % Neut % (Auto) 66.8 (45-73) % Lymph % (Auto) 21.5 (20-40) % Hamlin % (Auto) 10.5 (2-11) % Eos % (Auto) 0.6 (0-4) % Baso % (Auto) 0.4 (0-2) % Lymph # (Auto) 1.1 L (1.2-4.9) X10*3/uL Hamlin # (Auto) 0.5 (0.1-1.2) X10*3/uL Eos # (Auto) 0.0 (0.0-0.4) X10*3/uL Baso # (Auto) 0.0 (0.0-0.2) X10*3/uL Abs Immat Gran (auto) 0.01 (0.00-0.03) X10*3/uL Absolute Neuts (auto) 3.4 (2.0-8.3) x10*3/uL Absolute Nucleated RBC 0.000 (0.0-0.012) X10*3/uL Nucleated RBC % (auto) 0.0 (0.0-0.2) /100WBC PT (10.0-13.1) SEC INR (0.9-1.1) Sodium 140 (135-145) mmol/L Potassium 4.2 (3.3-5.1) mmol/L Chloride 107 (96-108) mmol/L Carbon Dioxide 22 (22-29) mmol/L Anion Gap 15 (12-20) BUN 19 H (9-16) mg/dL Creatinine 0.82 (0.5-1.4) mg/dL Estim Creat Clear Calc 41.7 Estimated GFR > 60 Random Glucose 119 H (60-115) mg/dL Calcium 9.2 D (8.4-10.2) mg/dL Magnesium 2.1 (1.6-2.6) mg/dL Total Bilirubin 0.2 (0.0-1.0) mg/dL Direct Bilirubin 0.2 (0.0-0.5) mg/dL AST 21 (5-31) U/L ALT 13 (0-31) U/L Alkaline Phosphatase 49 (39-117) U/L Troponin I High Sens 6.2 D (<3.5-17.0) ng/L B-Natriuretic Peptide (<100) pg/mL Total Protein 6.6 (6.5-8.0) g/dL Albumin 3.9 (3.5-5.0) g/dL 08/17/22 08/17/22 08/17/22 Range/Units 12:01 12:01 16:06 WBC (4.8-10.8) X10*3/uL RBC (4.20-5.50) X10*6/uL Hgb (12.0-16.0) g/dl Hct (37.0-47.0) % MCV (80.0-98.0) fL MCH (27.0-33.0) pg MCHC (31.0-35.0) g/dl RDW (11.0-16.0) % Plt Count (160-400) X10*3/uL MPV (9.4-12.3) fL Immature Gran % (Auto) (0.0-0.4) % Neut % (Auto) (45-73) % Lymph % (Auto) (20-40) % Hamlin % (Auto) (2-11) % Eos % (Auto) (0-4) % Baso % (Auto) (0-2) % Lymph # (Auto) (1.2-4.9) X10*3/uL Hamlin # (Auto) (0.1-1.2) X10*3/uL Eos # (Auto) (0.0-0.4) X10*3/uL Baso # (Auto) (0.0-0.2) X10*3/uL Abs Immat Gran (auto) (0.00-0.03) X10*3/uL Absolute Neuts (auto) (2.0-8.3) x10*3/uL Absolute Nucleated RBC (0.0-0.012) X10*3/uL Nucleated RBC % (auto) (0.0-0.2) /100WBC PT 11.0 (10.0-13.1) SEC INR 1.0 (0.9-1.1) Sodium (135-145) mmol/L Potassium (3.3-5.1) mmol/L Chloride (96-108) mmol/L Carbon Dioxide (22-29) mmol/L Anion Gap (12-20) BUN (9-16) mg/dL Creatinine (0.5-1.4) mg/dL Estim Creat Clear Calc Estimated GFR Random Glucose (60-115) mg/dL Calcium (8.4-10.2) mg/dL Magnesium (1.6-2.6) mg/dL Total Bilirubin (0.0-1.0) mg/dL Direct Bilirubin (0.0-0.5) mg/dL AST (5-31) U/L ALT (0-31) U/L Alkaline Phosphatase (39-117) U/L Troponin I High Sens 6.4 (<3.5-17.0) ng/L B-Natriuretic Peptide 84 (<100) pg/mL Total Protein (6.5-8.0) g/dL Albumin (3.5-5.0) g/dL ECG Data Attestation: I personally reviewed and interpreted this ECG as follows: Interpretation: EKG normal sinus rhythm with marked sinus arrhythmia. Rate of 87. QRS 86. QTC 401. No STEMI Discharge Plan Discharge Clinical Impression: Left leg pain, Anxiety Patient Disposition: Home, Self-Care Instructions: Leg Pain (ED), Anxiety (ED) Additional Instructions: Your blood work was reassuring today in the emergency department. Her imaging studies show a new Ramires cyst, no blood clot or fractures Continue taking home prescribed medications. Please have close follow-up with her doctor If symptoms persist or worsen, your foot begins to look infected, you develop shortness breath or chest pain return to the emergency department Prescriptions: No Action clonazepam 0.5 mg tablet 0.5 mg PO DAILY PRN (Reason: anxiety) 30 Days Qty: 30 0RF (DME) cane Device See Rx Instructions .Route Qty: 1 0RF Rx Instructions: As directed (DME) QUAD CANE See Rx Instructions .Route .MEDSUPPLY Qty: 1 0RF Rx Instructions: As directed metronidazole [Metrogel] 1 % gel 1 appl topical BEDTIME Qty: 60 0RF atenolol 50 mg tablet 50 mg PO DAILY 90 Days Qty: 90 1RF simvastatin 5 mg tablet 5 mg PO DAILY Qty: 90 1RF cholecalciferol (vitamin D3) 25 mcg (1,000 unit) capsule 25 mcg PO DAILY aobtwjtu-klbnmsb-fbnn-lutein Tablet PO DAILY acetaminophen [Tylenol 8 Hour] 650 mg tablet extended release 650 mg PO Q12H PRN Rx Instructions: Takes 1/2 a tab (DME) lightweight Walker See Rx Instructions .Route .MEDSUPPLY Qty: 1 0RF Rx Instructions: As directed Referrals: Po,Niall Hopson MD [Primary Care Provider] - 5 days
[2022-08-17 12:06] LABS: MANUAL DIFF FLAG NO
[2022-08-17 12:07] LABS: Basophils Percent Auto 0.4 % (0-2); Eosinophils Percent Auto 0.6 % (0-4); Hematocrit 38.9 % (37.0-47.0); Hemoglobin 13.4 g/dl (12.0-16.0); Imm Gran Abs Auto 0.01 X10*3/uL (0.00-0.03); Imm Gran Pct Auto 0.2 % (0.0-0.4); Lymphocytes Absolute Auto 1.1 X10*3/uL (1.2-4.9); Lymphocytes Percent Auto 21.5 % (20-40); Mean Corpuscular HGB Conc 34.4 g/dl (31.0-35.0); Mean Corpuscular Hemoglobin 30.3 pg (27.0-33.0); Mean Platelet Volume 9.8 fL (9.4-12.3); Monocytes Absolute Auto 0.5 X10*3/uL (0.1-1.2); Monocytes Percent Auto 10.5 % (2-11); Neutrophils Absolute Auto 3.4 x10*3/uL (2.0-8.3); Neutrophils Percent Auto 66.8 % (45-73); Platelet Count 168 X10*3/uL (160-400); Red Blood Count 4.42 X10*6/uL (4.20-5.50); White Blood Count 5.1 X10*3/uL (4.8-10.8)
[2022-08-17 12:26] LABS: Alanine Aminotransferase 13 U/L (0-31); Albumin Level 3.9 g/dL (3.5-5.0); Alkaline Phosphatase 49 U/L (39-117); Anion Gap 15 (12-20); Aspartate Amino Transferase 21 U/L (5-31); Bilirubin Direct 0.2 mg/dL (0.0-0.5); Bilirubin Total 0.2 mg/dL (0.0-1.0); Blood Urea Nitrogen 19 mg/dL (9-16); Calcium 9.2 mg/dL (8.4-10.2); Carbon Dioxide 22 mmol/L (22-29); Chloride 107 mmol/L (96-108); Creatinine Clr Calc Pharmacy 41.7; Estimated Glomerular Filt Rate > 60; Glucose Random 119 mg/dL (60-115); Magnesium 2.1 mg/dL (1.6-2.6); Potassium 4.2 mmol/L (3.3-5.1); Sodium 140 mmol/L (135-145); Total Protein 6.6 g/dL (6.5-8.0)
[2022-08-17 12:33] LABS: B Type Natriuretic Peptide 84 pg/mL (<100); Troponin-I High Sensitivity 6.2 ng/L (<3.5-17.0)
[2022-08-17 16:36] LABS: Troponin-I High Sensitivity 6.4 ng/L (<3.5-17.0)
[2022-08-17 17:24] VITALS: BP 140/72; PULSE 89; RESP 16; TEMP 36.8; O2SAT 98
--- NOTE | 2022-08-17 17:25 | PC.NURSE ---
patient a/ox4 . went over discharge instructions as ordered by provider . patient to return if symptoms worsen . patient to follow up with primary care . no questions at this time .
== END 2022-08-17 17:27 | disposition home or self-care (01) ==
PROVIDERS: Physician Assistant; Emergency Provider Emergency Medicine Emergency Medical Services; PCP Internal Medicine
DX: R07.89 Other chest pain (principal); R60.0 Localized edema; F41.1 Generalized anxiety disorder; F43.0 Acute stress reaction; R06.02 Shortness of breath; M25.572 Pain in left ankle and joints of left foot; Z79.899 Other long term (current) drug therapy
CPT/HCPCS: 36415; 71045; 73600; 73630; 80048; 80076; 83735; 83880; 84484; 85025; 85610; 93005; 93971; 99284

== ENCOUNTER 2022-09-08 15:30 | Inpatient (IN) | payer MEDICARE, MEDICAID, SELFPAY ==
--- NOTE | ~2022-09-08 | CT_ITS ---
EXAMINATION: CT ABDOMEN AND PELVIS WITH CONTRAST CLINICAL INFORMATION: Left lower quadrant abdominal pain and constipation COMPARISON: 03/03/2021 TECHNIQUE: Multidetector volumetric images were obtained from the superior aspect of the liver through the pubic symphysis following administration 85 mL of Omnipaque 350 intravenous contrast. Sagittal and coronal reformatted images were obtained on the technologist's workstation. Oral contrast: No This CT examination was performed using dose optimization techniques as appropriate, variously including the following: *Automated exposure control *Adjustment of mA and/or kV according to patient size (this includes techniques or standardized protocols for targeted exams where dose is matched to indication/reason for exam; i.e. extremities or head) *Use of iterative reconstruction technique DLP: 556 mGy-cm FINDINGS: LUNG BASES: The visualized lung bases are unremarkable. LIVER, GALLBLADDER, AND BILIARY TREE: The liver is normal in size, shape, and attenuation. No focal hepatic lesion or biliary ductal dilatation is present. Gallbladder surgically absent. Common bile duct is prominent but not dilated. PANCREAS: Unremarkable. SPLEEN: Unremarkable. ADRENAL GLANDS: No adrenal mass. KIDNEYS AND URETERS: The kidneys are normal in size, shape, and attenuation. No hydronephrosis, hydroureter, or calculi seen. No perinephric stranding. BLADDER: Unremarkable. GASTROINTESTINAL TRACT: Moderate hiatal hernia with the majority of the stomach in the chest. Small bowel nondilated. There is severe wall thickening of the proximal sigmoid colon with fluid and fat stranding surrounding a single diverticulum. The appearance is most suggestive of acute diverticulitis rather than a short segment colitis. ABDOMINAL WALL: No significant hernia is appreciated. LYMPH NODES: Normal. VASCULAR: Unremarkable. PELVIC VISCERA: Uterus surgically absent. No adnexal mass. OSSEOUS STRUCTURES: Extensive degenerative changes of the lumbar spine with marked rotoscoliosis. CT/CT abdomen pelvis w IV con IMPRESSION: Severe wall thickening of the proximal sigmoid colon with adjacent fluid and fat stranding consistent with acute diverticulitis. No evidence of abscess or perforation. Recommend colonoscopy after treatment to exclude a microperforated colon cancer which can present similarly. Fleischner guidelines were followed.
--- NOTE | ~2022-09-08 | US_ITS ---
EXAMINATION: LEFT LOWER EXTREMITY VENOUS DOPPLER ULTRASOUND CLINICAL INFORMATION: Pain. Evaluate for DVT. COMPARISON: Left lower extremity DVT study dated 08/17/2022.. TECHNIQUE: Doppler spectral analysis and color flow Doppler imaging was performed of the left lower extremity. Compression and augmentation maneuvers were performed. FINDINGS: The left common femoral vein, greater saphenous vein takeoff, femoral vein, and popliteal vein are normally compressible with normal augmentation responses and phasic changes seen with Doppler imaging. The midcalf peroneal and posterior tibial veins are patent as well. There is a 7 x 0.9 x 3.4 cm mildly complicated fluid collection seen in the popliteal fossa previously measured at 4.9 x 1.5 x 2.8 cm. US/US venous duplex LE LT IMPRESSION: 1. No evidence of deep venous thrombosis in the left lower extremity. 2. Popliteal fossa cyst, slightly larger when compared to prior exam.
[2022-09-08 15:46] VITALS: BP 148/82; BP 148/91; PULSE 118; PULSE 97; RESP 18; TEMP 37.3; O2SAT 98; BMI 23.0
[2022-09-08] MEDS: 0.9 % Sodium Chloride 1,000 ML 999 ML IV (17:12)
[2022-09-08 17:17] LABS: MANUAL DIFF FLAG NO
[2022-09-08 17:19] LABS: Basophils Percent Auto 0.1 % (0-2); Eosinophils Percent Auto 0.4 % (0-4); Hematocrit 42.4 % (37.0-47.0); Hemoglobin 14.2 g/dl (12.0-16.0); Imm Gran Abs Auto 0.03 X10*3/uL (0.00-0.03); Imm Gran Pct Auto 0.3 % (0.0-0.4); Lymphocytes Absolute Auto 1.4 X10*3/uL (1.2-4.9); Lymphocytes Percent Auto 15.6 % (20-40); Mean Corpuscular HGB Conc 33.5 g/dl (31.0-35.0); Mean Corpuscular Hemoglobin 29.6 pg (27.0-33.0); Mean Corpuscular Volume 88.5 fL (80.0-98.0); Mean Platelet Volume 10.2 fL (9.4-12.3); Monocytes Percent Auto 10.6 % (2-11); Neutrophils Absolute Auto 6.6 x10*3/uL (2.0-8.3); Platelet Count 182 X10*3/uL (160-400); Red Blood Count 4.79 X10*6/uL (4.20-5.50); Red Cell Distribution Width 12.9 % (11.0-16.0)
[2022-09-08 17:20] LABS: Appearance Urine Clear; Color Urine Yellow; Glucose Urine UA Negative (Negative); Leukocyte Esterase Urine Trace (Negative); Nitrite Urine Negative (Negative); PH 5.5 (5.0-9.0); UMIC TRIGGER UACC YES; Urine Blood Negative (Negative); Urine Ketones Negative (Negative); Urine Protein Negative (Neg-Trace)
--- NOTE | 2022-09-08 17:25 | ED.GENADULT ---
HPI - General Adult General Chief complaint: General Medical <OSMAN Huerta - Last Filed: 09/08/22 18:51> Stated complaint: abd pain <OSMAN Huerta - Last Filed: 09/08/22 18:51> Time Seen by Provider: 09/08/22 15:51 <OSMAN Huerta - Last Filed: 09/08/22 18:51> Source: patient and EMS <OSMAN Huerta - Last Filed: 09/08/22 18:51> Mode of arrival: EMS <OSMAN Huerta - Last Filed: 09/08/22 18:51> History of Present Illness HPI narrative: 87-year-old female with a past medical history of asthma, HLD, HTN, cholelithiasis, diverticulosis, scoliosis, presenting to ED via EMS from [facility] complaining of left lower quadrant abdominal pain since last night with associated constipation. Last BM this morning. Denies fever, chills, nausea, vomiting, dysuria /hematuria <OSMAN Huerta - Last Filed: 09/08/22 18:51> Onset (ago): hour(s) <OSMAN Huerta - Last Filed: 09/08/22 18:51> Related Data Home medications: Home Medications Medication Instructions Recorded Confirmed acetaminophen 650 mg 650 mg PO Q12H PRN 12/17/20 01/09/22 tablet,extended release (Tylenol 8 Hour) cholecalciferol (vitamin D3) 25 25 mcg PO DAILY 12/17/20 01/09/22 mcg (1,000 unit) capsule vkxiumtm-tdrxmhn-ztyy-lutein tablet tab PO DAILY 12/17/20 01/09/22 Previous Rx's Medication Instructions Recorded lightweight Walker #1 ea 06/27/21 cane #1 ea 12/15/21 QUAD CANE #1 ea 12/16/21 atenolol 50 mg tablet 50 mg PO DAILY 90 days #90 tabs 03/13/22 metronidazole 1 % topical gel 1 appl topical BEDTIME #60 grams 03/13/22 (Metrogel) simvastatin 5 mg tablet 5 mg PO DAILY #90 tabs 03/13/22 clonazepam 0.5 mg tablet 0.5 mg PO DAILY PRN anxiety 30 08/25/22 days #30 tabs <OSMAN Huerta Last Filed: 09/08/22 18:51> Allergies/adverse reactions: Allergies Allergy/AdvReac Type Severity Reaction Status Date / Time Penicillins Allergy Mild RASH Verified 09/08/22 14:17 acetaminophen [Percocet] Allergy Unknown nausea Verified 09/08/22 14:17 clindamycin [CLINDAMYCIN] Allergy Unknown FELT Verified 09/08/22 14:17 AWFUL/upset stomach penicillin V Allergy Unknown rash Verified 09/08/22 14:17 oxycodone [OXYCODONE] AdvReac Unknown STOMACH Verified 09/08/22 14:17 UPSET From [facility] Allergy Mild GI UPSET Uncoded 09/08/22 14:17 <OSMAN Huerta Last Filed: 09/08/22 18:51> Review of Systems Review of Systems: Constitutional: No Fever, No Chills, No Fatigue, No Malaise ENT/Mouth: No Ear Pain, No Nasal Congestion, No sore throat, No Rhinorrhea, No Swallowing Difficulty Eyes: No Eye Pain, No Swelling, No Redness, No Vision Changes Cardiovascular: No Chest Pain, No SOB, No Edema, No Palpitations Respiratory: No Cough, No Sputum, No Dyspnea Gastrointestinal: No Nausea, No Vomiting, No Diarrhea, + Constipation, + Abdominal pain Genitourinary: No Dysuria, No Urinary Frequency, No Hematuria, No Urinary Incontinence/retention, No Flank Pain, No Urinary Flow Changes, No Hesitancy Musculoskeletal: No joint pain, No Myalgias, No Joint Swelling Skin: No Skin Lesions, No rash Neuro: No Weakness, No Numbness, No Dizziness, No Headache <OSMAN Huerta Last Filed: 09/08/22 18:51> Yes all other systems are reviewed and are negative <OSMAN Huerta Last Filed: 09/08/22 18:51> Constitutional: Constitutional: Reports as per HPI <OSMAN Huerta Last Filed: 09/08/22 18:51> PMFSH Past Medical History Attestation statement: The following information was validated with the patient. <OSMAN Huerta Last Filed: 09/08/22 18:51> Medical History: Medical History Asthma Cataracts, bilateral Cervical spondylosis Cholelithiasis Goiter Hypercholesterolemia Hypertension Impaired glucose tolerance LLQ pain Osteopenia Post-menopausal Problem of both ears Scoliosis <OSMAN Huerta - Last Filed: 09/08/22 18:51> Surgical History: Surgical History History of cataract surgery History of colonoscopy Hx of cholecystectomy Hx of tonsillectomy Status post total abdominal hysterectomy <OSMAN Huerta - Last Filed: 09/08/22 18:51> Family History Family History: Family History Father No problems noted. Mother No problems noted. <OSMAN Huerta - Last Filed: 09/08/22 18:51> Social History Social History: Social History Housing: Apartment Alcohol intake: never Patient Tobacco Use Status: Never used Tobacco e-Cigarette/Vaping Use: Never Used Second Hand Smoke Exposure: No Advance Directives: No Advance Directives Information Provided: No service: No Current occupational status: retired and disabled Cognitive needs: No Hearing needs: No Vision needs: Yes <OSMAN Huerta - Last Filed: 09/08/22 18:51> Physical Exam ED Vital Signs: Vital Signs - 24 hr 09/08/22 15:46 09/08/22 18:15 Temperature 99.1 F 98.8 F Pulse Rate 97 80 Respiratory Rate 18 12 Blood Pressure 148/91 H 158/73 H Pulse Oximetry 98 98 Oxygen Delivery Method Room Air Room Air BMI result Body Mass Index 23.0 <OSMAN Huerta - Last Filed: 09/08/22 18:51> Vital Signs - 24 hr 09/08/22 15:46 09/08/22 18:15 Temperature 99.1 F 98.8 F Pulse Rate 97 80 Respiratory Rate 18 12 Blood Pressure 148/91 H 158/73 H Pulse Oximetry 98 98 Oxygen Delivery Method Room Air Room Air BMI result Body Mass Index 23.0 <OSMAN Jackson - Last Filed: 09/08/22 20:15> Const General: cooperative, healthy appearing and no acute distress <OSMAN Huerta - Last Filed: 09/08/22 18:51> Orientation/consciousness: patient oriented x3 <Sary Domingo PA - Last Filed: 09/08/22 18:51> Limitations: no limitations <OSMAN Huerta - Last Filed: 09/08/22 18:51> HENMT Head: Yes normal to inspection and Yes atraumatic <Sary Domingo PA - Last Filed: 09/08/22 18:51> Ears: hearing grossly normal bilaterally <Sary Domingo PA - Last Filed: 09/08/22 18:51> General nose exam: Normal external nose present <OSMAN Huerta - Last Filed: 09/08/22 18:51> Face and sinus: Yes normal facial exam <OSMAN Huerta - Last Filed: 09/08/22 18:51> Eyes General: appearance normal, both eyes and all related structures <Sary Domingo PA - Last Filed: 09/08/22 18:51> EOM: EOMs intact bilaterally <Sary Domingo PA - Last Filed: 09/08/22 18:51> Neck Neck: Yes normal visual inspection and Yes no meningeal signs <Sary Domingo PA - Last Filed: 09/08/22 18:51> Resp Effort & Inspection: normal respiratory effort and no respiratory distress <Sary Domingo PA - Last Filed: 09/08/22 18:51> Auscultation: clear to auscultation bilaterally <OSMAN Huerta - Last Filed: 09/08/22 18:51> Cardio Rate: regular rate <Sary Domingo PA - Last Filed: 09/08/22 18:51> Heart sounds: S1 normal heart sound present and S2 normal heart sound present <Sary Domingo PA - Last Filed: 09/08/22 18:51> GI Inspection: Yes normal to inspection <OSMAN Huerta - Last Filed: 09/08/22 18:51> Palpation (GI): Soft to palpation, Tenderness to palpation present (GI) in the LLQ; with no rebound tenderness, no guarding and not rigid <OSMAN Huerta Last Filed: 09/08/22 18:51> General: Yes no CVA tenderness <OSMAN Huerta Last Filed: 09/08/22 18:51> Back/Spine/Pelvis Back: no CVA tenderness <OSMAN Huerta Last Filed: 09/08/22 18:51> Skin Rashes: no rashes <OSMAN Huerta Last Filed: 09/08/22 18:51> Wounds: no wounds <OSMAN Huerta Last Filed: 09/08/22 18:51> Neuro General: patient oriented x3, tone normal and no meningeal signs <OSMAN Huerta Last Filed: 09/08/22 18:51> Gait exam (Neuro): Normal gait present <OSMAN Huerta Last Filed: 09/08/22 18:51> Extrem General: Yes normal to inspection <OSMAN Huerta Last Filed: 09/08/22 18:51> Course Course Course Narrative: - labs unremarkable. UA not infected -1900-- ED care transferred to [facility] pending CT abdomen/ pelvis and dispo <OSMAN Huerta Last Filed: 09/08/22 18:51> Reevaluation(s) Reevaluation #1: CBC with no acute findings. Chemistry without electrolyte abnormalities requiring intervention. Lipase negative. UA clean. CT of the abdomen pelvis concerning for diverticulitis. At this time will initiate ceftriaxone and Flagyl for antibiotic coverage. When I evaluated this patient earlier today she was not able to tolerate anything by mouth and tells me she was only drinking tea. Will admit patient to the hospital for further evaluation and treatment <OSMAN Jackson Last Filed: 09/08/22 20:15> Time: 20:14 <OSMAN Jackson Last Filed: 09/08/22 20:15> Medications Administered Discontinued Medications Generic Name Dose Route Start Last Admin Trade Name Freq PRN Reason Stop Dose Admin Sodium Chloride 1,000 mls @ 999 mls/hr 09/08/22 16:30 09/08/22 18:13 Ns IV 09/08/22 17:30 Infused .Q1H1M [facility] Infusion Iohexol 100 ml 09/08/22 18:59 09/08/22 19:00 Iohexol 350 Mg/Ml 100 Ml Infus..Btl IV 09/08/22 19:00 85 ml ONCE ONE Administration <OSMAN Huerta - Last Filed: 09/08/22 18:51> Medications Administered Discontinued Medications Generic Name Dose Route Start Last Admin Trade Name Tony PRN Reason Stop Dose Admin Sodium Chloride 1,000 mls @ 999 mls/hr 09/08/22 16:30 09/08/22 18:13 Ns IV 09/08/22 17:30 Infused .Q1H1M [facility] Infusion Iohexol 100 ml 09/08/22 18:59 09/08/22 19:00 Iohexol 350 Mg/Ml 100 Ml Infus..Btl IV 09/08/22 19:00 85 ml ONCE ONE Administration <OSMAN Jackson - Last Filed: 09/08/22 20:15> Medical Decision Making [facility] Narrative Medical decision making narrative: 87-year-old female with a past medical history of asthma, HLD, HTN, cholelithiasis, diverticulosis, scoliosis, presenting to ED via EMS from [facility] complaining of left lower quadrant abdominal pain since last night with associated constipation. on exam vital signs stable, NAD, nontoxic appearing, abdomen soft with left lower quadrant tenderness, no rebound or guarding. No CVA tenderness. Concern for diverticulitis vs constipation vs ? SBO. Rule out UTI. Lower suspicion for appendicitis, cholecystitis/ lithiasis, pancreatitis, renal stone or pyelo Plan: Labs, UA, CT AP, IVF, re-evaluate <OSMAN Huerta - Last Filed: 09/08/22 18:51> Medical Records Medical records reviewed: Yes I reviewed the patient's medical records. <OSMAN Huerta Last Filed: 09/08/22 18:51> Lab Data Lab results reviewed: Yes I reviewed the patient's lab results. <OSMAN Huerta Last Filed: 09/08/22 18:51> Result diagrams: : 09/08/22 17:10 09/08/22 17:10 <OSMAN Huerta - Last Filed: 09/08/22 18:51> Labs: Lab Results 09/08/22 09/08/22 09/08/22 Range/Units 16:58 17:10 17:10 WBC 9.0 (4.8-10.8) X10*3/uL RBC 4.79 (4.20-5.50) X10*6/uL Hgb 14.2 (12.0-16.0) g/dl Hct 42.4 (37.0-47.0) % MCV 88.5 (80.0-98.0) fL MCH 29.6 (27.0-33.0) pg MCHC 33.5 (31.0-35.0) g/dl RDW 12.9 (11.0-16.0) % Plt Count 182 (160-400) X10*3/uL MPV 10.2 (9.4-12.3) fL Immature Gran % (Auto) 0.3 (0.0-0.4) % Neut % (Auto) 73.0 (45-73) % Lymph % (Auto) 15.6 L (20-40) % [place] % (Auto) 10.6 (2-11) % Eos % (Auto) 0.4 (0-4) % Baso % (Auto) 0.1 (0-2) % Lymph # (Auto) 1.4 (1.2-4.9) X10*3/uL [place] # (Auto) 1.0 (0.1-1.2) X10*3/uL Eos # (Auto) 0.0 (0.0-0.4) X10*3/uL Baso # (Auto) 0.0 (0.0-0.2) X10*3/uL Abs Immat Gran (auto) 0.03 (0.00-0.03) X10*3/uL Absolute Neuts (auto) 6.6 (2.0-8.3) x10*3/uL Absolute Nucleated RBC 0.000 (0.0-0.012) X10*3/uL Nucleated RBC % (auto) 0.0 (0.0-0.2) /100WBC Sodium 138 (135-145) mmol/L Potassium 4.4 (3.3-5.1) mmol/L Chloride 102 (96-108) mmol/L Carbon Dioxide 23 (22-29) mmol/L Anion Gap 17 (12-20) BUN 17 H (9-16) mg/dL Creatinine 0.81 (0.5-1.4) mg/dL Estim Creat Clear Calc 38.7 Estimated GFR > 60 Random Glucose 124 H (60-115) mg/dL Calcium 9.9 D (8.4-10.2) mg/dL Magnesium 2.2 (1.6-2.6) mg/dL Total Bilirubin 1.0 (0.0-1.0) mg/dL Direct Bilirubin 0.4 (0.0-0.5) mg/dL AST 24 (5-31) U/L ALT 17 (0-31) U/L Alkaline Phosphatase 68 D (39-117) U/L Total Protein 7.2 (6.5-8.0) g/dL Albumin 4.2 (3.5-5.0) g/dL Lipase 23 (8-78) U/L Urine Color Yellow Urine Appearance Clear Urine pH 5.5 (5.0-9.0) Ur Specific [place] 1.010 (1.005-1.025) Urine Protein Negative (Neg-Trace) mg/dL Urine Glucose (UA) Negative (Negative) mg/dL Urine Ketones Negative (Negative) mg/dL Urine Blood Negative (Negative) Urine Nitrite Negative (Negative) Ur Leukocyte Esterase Trace H (Negative) Urine RBC 0-2 (0-2) /HPF Urine WBC 0-5 (0-5) /HPF Ur Squamous Epith Cells 0-2 (0-2) /HPF Urine Bacteria None Seen (None Seen) Hyaline Casts 0-2 (0-2) /LPF <OSMAN Huerta - Last Filed: 09/08/22 18:51> Lab Results 09/08/22 09/08/22 09/08/22 Range/Units 16:58 17:10 17:10 WBC 9.0 (4.8-10.8) X10*3/uL RBC 4.79 (4.20-5.50) X10*6/uL Hgb 14.2 (12.0-16.0) g/dl Hct 42.4 (37.0-47.0) % MCV 88.5 (80.0-98.0) fL MCH 29.6 (27.0-33.0) pg MCHC 33.5 (31.0-35.0) g/dl RDW 12.9 (11.0-16.0) % Plt Count 182 (160-400) X10*3/uL MPV 10.2 (9.4-12.3) fL Immature Gran % (Auto) 0.3 (0.0-0.4) % Neut % (Auto) 73.0 (45-73) % Lymph % (Auto) 15.6 L (20-40) % [place] % (Auto) 10.6 (2-11) % Eos % (Auto) 0.4 (0-4) % Baso % (Auto) 0.1 (0-2) % Lymph # (Auto) 1.4 (1.2-4.9) X10*3/uL [place] # (Auto) 1.0 (0.1-1.2) X10*3/uL Eos # (Auto) 0.0 (0.0-0.4) X10*3/uL Baso # (Auto) 0.0 (0.0-0.2) X10*3/uL Abs Immat Gran (auto) 0.03 (0.00-0.03) X10*3/uL Absolute Neuts (auto) 6.6 (2.0-8.3) x10*3/uL Absolute Nucleated RBC 0.000 (0.0-0.012) X10*3/uL Nucleated RBC % (auto) 0.0 (0.0-0.2) /100WBC Sodium 138 (135-145) mmol/L Potassium 4.4 (3.3-5.1) mmol/L Chloride 102 (96-108) mmol/L Carbon Dioxide 23 (22-29) mmol/L Anion Gap 17 (12-20) BUN 17 H (9-16) mg/dL Creatinine 0.81 (0.5-1.4) mg/dL Estim Creat Clear Calc 38.7 Estimated GFR > 60 Random Glucose 124 H (60-115) mg/dL Calcium 9.9 D (8.4-10.2) mg/dL Magnesium 2.2 (1.6-2.6) mg/dL Total Bilirubin 1.0 (0.0-1.0) mg/dL Direct Bilirubin 0.4 (0.0-0.5) mg/dL AST 24 (5-31) U/L ALT 17 (0-31) U/L Alkaline Phosphatase 68 D (39-117) U/L Total Protein 7.2 (6.5-8.0) g/dL Albumin 4.2 (3.5-5.0) g/dL Lipase 23 (8-78) U/L Urine Color Yellow Urine Appearance Clear Urine pH 5.5 (5.0-9.0) Ur Specific [place] 1.010 (1.005-1.025) Urine Protein Negative (Neg-Trace) mg/dL Urine Glucose (UA) Negative (Negative) mg/dL Urine Ketones Negative (Negative) mg/dL Urine Blood Negative (Negative) Urine Nitrite Negative (Negative) Ur Leukocyte Esterase Trace H (Negative) Urine RBC 0-2 (0-2) /HPF Urine WBC 0-5 (0-5) /HPF Ur Squamous Epith Cells 0-2 (0-2) /HPF Urine Bacteria None Seen (None Seen) Hyaline Casts 0-2 (0-2) /LPF <OSMAN Jackson - Last Filed: 09/08/22 20:15> Critical Care Time Critical Care Time Critical Care Time: No <OSMAN Jackson - Last Filed: 09/08/22 20:15> Discharge Plan Discharge Clinical Impression: Diverticulitis <OSMAN Huerta - Last Filed: 09/08/22 18:51> Patient Disposition: Admitted As Inpatient <OSMAN Huerta - Last Filed: 09/08/22 18:51> Prescriptions: No Action (DME) cane Device See Rx Instructions .Route Qty: 1 0RF Rx Instructions: As directed (DME) QUAD CANE See Rx Instructions .Route .MEDSUPPLY Qty: 1 0RF Rx Instructions: As directed metronidazole [Metrogel] 1 % gel 1 appl topical BEDTIME Qty: 60 0RF atenolol 50 mg tablet 50 mg PO DAILY 90 Days Qty: 90 1RF simvastatin 5 mg tablet 5 mg PO DAILY Qty: 90 1RF clonazepam 0.5 mg tablet 0.5 mg PO DAILY PRN (Reason: anxiety) 30 Days Qty: 30 0RF cholecalciferol (vitamin D3) 25 mcg (1,000 unit) capsule 25 mcg PO DAILY cbeapepx-slnlyzr-cpdr-lutein Tablet PO DAILY acetaminophen [Tylenol 8 Hour] 650 mg tablet extended release 650 mg PO Q12H PRN Rx Instructions: Takes 1/2 a tab (DME) lightweight Walker See Rx Instructions .Route .MEDSUPPLY Qty: 1 0RF Rx Instructions: As directed <OSMAN Huerta - Last Filed: 09/08/22 18:51> Referrals: Physician,Unknown J [Primary Care Provider] - 3 days <OSMAN Huerta - Last Filed: 09/08/22 18:51>
[2022-09-08 17:26] LABS: Bacteria Urine None Seen (None Seen); Hyaline Casts Urine 0-2 /LPF (0-2); RBC Urine 0-2 /HPF (0-2); Squamous Epithelial Cell Urine 0-2 /HPF (0-2); WBC Urine 0-5 /HPF (0-5)
[2022-09-08 17:34] LABS: Alanine Aminotransferase 17 U/L (0-31); Albumin Level 4.2 g/dL (3.5-5.0); Alkaline Phosphatase 68 U/L (39-117); Anion Gap 17 (12-20); Aspartate Amino Transferase 24 U/L (5-31); Bilirubin Direct 0.4 mg/dL (0.0-0.5); Blood Urea Nitrogen 17 mg/dL (9-16); Calcium 9.9 mg/dL (8.4-10.2); Carbon Dioxide 23 mmol/L (22-29); Chloride 102 mmol/L (96-108); Creatinine Clr Calc Pharmacy 38.7; Estimated Glomerular Filt Rate > 60; Glucose Random 124 mg/dL (60-115); Lipase 23 U/L (8-78); Magnesium 2.2 mg/dL (1.6-2.6); Potassium 4.4 mmol/L (3.3-5.1); Sodium 138 mmol/L (135-145); Total Protein 7.2 g/dL (6.5-8.0)
[2022-09-08 18:15] VITALS: BP 158/73; PULSE 80; RESP 12; TEMP 37.1; O2SAT 98
--- NOTE | 2022-09-08 18:58 | PC.NURSE ---
pt returned from ct scan
[2022-09-08] MEDS: iohexoL 350 MG/ML 100 ML INFUS..BTL IV (19:00)
--- NOTE | 2022-09-08 20:53 | PC.NURSE ---
pharmacy is calling provider about antibiotics order
--- NOTE | 2022-09-08 21:02 | PHA.MEDREC ---
Pharmacy Consult ? Medication Reconciliation Pharmacy has completed the medication reconciliation. Patient was able to tell me her home medications and when she normally takes them but she states she didn't take any of them today because she was not feeling well.
[2022-09-08] MEDS: cefTRIAXone sodium 2 GM in 0.9 % Sodium Chloride 50 ML IV (21:15)
[2022-09-08] MEDS: Enoxaparin Sodium 40 MG/0.4 ML SYRINGE SUBCUT (21:15)
--- NOTE | 2022-09-08 21:18 | PC.NURSE ---
patient a&o, pt medicated per order, vss, pure wick intact/draining, call byrne within reach, will continue to monitor
--- NOTE | 2022-09-08 21:53 | PM.IMHP ---
History of Present Illness Date of Service: 09/08/22 Chief Complaint: Abdominal pain This is a 87-year-old female with pertinent history of essential hypertension, mixed hyperlipidemia, generalized anxiety disorder who was brought to the emergency department from [facility] for evaluation of left lower quadrant abdominal pain. Patient states pain started last night, constant, nonradiating and progressive. It was in the left lower quadrant and without any relieving factors. Patient states nothing relieved the pain. She has had poor p.o. intake over the last 1 day due to significant pain. Last bowel movement was this morning. Patient denies fever, chills, nausea, vomiting or similar complaints in the past. She denies chest discomfort, shortness of breath, palpitations, changes in urinary or bowel habits In the emergency department, imaging was concerning for acute diverticulitis. Review of Systems Constitutional: Constitutional: Reports no additional constitutional complaints Cardiovascular: Cardiovascular: Reports no additional cardiovascular complaints Respiratory: Respiratory: Reports no additional respiratory complaints Gastrointestinal: Gastrointestinal: Reports abdominal pain [facility] Medical History Asthma Cataracts, bilateral Cervical spondylosis Cholelithiasis Goiter Hypercholesterolemia Hypertension Impaired glucose tolerance LLQ pain Osteopenia Post-menopausal Problem of both ears Scoliosis Family History Father No problems noted. Mother No problems noted. Surgical History History of cataract surgery History of colonoscopy Hx of cholecystectomy Hx of tonsillectomy Status post total abdominal hysterectomy Social History Housing: Apartment Alcohol intake: never Patient Tobacco Use Status: Never used Tobacco e-Cigarette/Vaping Use: Never Used Second Hand Smoke Exposure: No Advance Directives: No Advance Directives Information Provided: No service: No Current occupational status: retired and disabled Cognitive needs: No Hearing needs: No Vision needs: Yes Meds Allergies Allergy/AdvReac Type Severity Reaction Status Date / Time Penicillins Allergy Mild RASH Verified 09/08/22 14:17 acetaminophen [Percocet] Allergy Unknown nausea Verified 09/08/22 14:17 clindamycin [CLINDAMYCIN] Allergy Unknown FELT Verified 09/08/22 14:17 AWFUL/upset stomach penicillin V Allergy Unknown rash Verified 09/08/22 14:17 oxycodone [OXYCODONE] AdvReac Unknown STOMACH Verified 09/08/22 14:17 UPSET From [facility] Allergy Mild GI UPSET Uncoded 09/08/22 14:17 Active Medications: Current Medications Acetaminophen (Acetaminophen 325 Mg Tablet) 650 mg PO Q6H PRN PRN Reason: Pain, Mild (Pain Scale 1-3) Enoxaparin Sodium (Enoxaparin Sodium 40 Mg/0.4 Ml Syringe) 40 mg SUBCUT Q24H [facility] Last Admin: 09/08/22 21:15 Dose: 40 mg Metronidazole (Flagyl) 500 mg in 100 mls @ 100 mls/hr IV Q8H [facility] Ceftriaxone Sodium 2 gm/ (Sodium Chloride) 50 mls @ 100 mls/hr IV ONCE ONE Stop: 09/08/22 23:29 Ceftriaxone Sodium 2 gm/ (Sodium Chloride) 50 mls @ 100 mls/hr IV Q24H [facility] Melatonin (Melatonin 3 Mg Tablet) 6 mg PO BEDTIME PRN PRN Reason: insomnia Morphine Sulfate (Morphine Sulfate 2 Mg/Ml Cartridge) 2 mg IVPUSH Q6H PRN; Protocol PRN Reason: Pain, Severe (Pain Scale 7-10) Ondansetron HCl (Ondansetron Hcl 4 Mg/2 Ml Vial) 4 mg IVPUSH Q8H PRN PRN Reason: nausea Pharmacy Consult (Consult Rx Perform Med Rec) 1 each MISCELLANE ONCE PRN PRN Reason: Consult order Sodium Chloride (0.9 % Sodium Chloride Flush 3 Ml Syringe) 3 ml IVFLUSH QSHIFT [facility] Home Medications Medication Instructions Recorded Confirmed Last Taken Type cholecalciferol (vitamin D3) 25 25 mcg PO DAILY 12/17/20 09/08/22 09/07/22 History mcg (1,000 unit) capsule mnvkngaw-cgsyhxz-xkjf-lutein tablet 1 tab PO DAILY 12/17/20 09/08/22 09/07/22 History acetaminophen 325 mg tablet 325 mg PO QID PRN Pain 09/08/22 09/08/22 Unknown History atenolol 50 mg tablet 50 mg PO DAILY@1700 09/08/22 09/08/22 09/07/22 History simvastatin 5 mg tablet 5 mg PO DAILY@1700 09/08/22 09/08/22 09/07/22 History Physical Exam Vital Signs and Narrative: Vital Signs: Last Vital Signs Temp 98.8 F 09/08/22 18:15 Pulse 80 09/08/22 18:15 Resp 12 09/08/22 18:15 BP 158/73 H 09/08/22 18:15 Pulse Ox 98 09/08/22 18:15 O2 Del Method 09/08/22 18:15 BMI result Body Mass Index 23.0 Elderly female lying in bed in mild distress Neck supple, no JVD Regular rate and rhythm, S1-S2 heard Regular breath sounds bilaterally, no wheezing or crackles appreciated Abdomen with left lower quadrant tenderness, no guarding, no rigidity Patient is awake, alert and oriented to self, place, time and person ; no focal motor deficit Psych: Normal mood No pedal edema Results Labs CBC and Chem 7: 09/08/22 17:10 09/08/22 17:10 Labs: Laboratory Results - last 24 hr 09/08/22 09/08/22 09/08/22 16:58 17:10 17:10 MCV 88.5 MCH 29.6 MCHC 33.5 RDW 12.9 Plt Count 182 MPV 10.2 Immature Gran % (Auto) 0.3 Neut % (Auto) 73.0 Lymph % (Auto) 15.6 L [place] % (Auto) 10.6 Eos % (Auto) 0.4 Baso % (Auto) 0.1 Lymph # (Auto) 1.4 [place] # (Auto) 1.0 Eos # (Auto) 0.0 Baso # (Auto) 0.0 Abs Immat Gran (auto) 0.03 Absolute Neuts (auto) 6.6 Absolute Nucleated RBC 0.000 Nucleated RBC % (auto) 0.0 Anion Gap 17 Estim Creat Clear Calc 38.7 Estimated GFR > 60 Random Glucose 124 H Calcium 9.9 D Magnesium 2.2 Total Bilirubin 1.0 Direct Bilirubin 0.4 AST 24 ALT 17 Alkaline Phosphatase 68 D Total Protein 7.2 Albumin 4.2 Lipase 23 Urine Color Yellow Urine Appearance Clear Urine pH 5.5 Ur Specific [place] 1.010 Urine Protein Negative Urine Glucose (UA) Negative Urine Ketones Negative Urine Blood Negative Urine Nitrite Negative Ur Leukocyte Esterase Trace H Urine RBC 0-2 Urine WBC 0-5 Ur Squamous Epith Cells 0-2 Urine Bacteria None Seen Hyaline Casts 0-2 Imaging Radiologist's Impressions: Impressions Abdomen/Pelvis CT 09/08/22 19:00 IMPRESSION: Severe wall thickening of the proximal sigmoid colon with adjacent fluid and fat stranding consistent with acute diverticulitis. No evidence of abscess or perforation. Recommend colonoscopy after treatment to exclude a microperforated colon cancer which can present similarly. Fleischner guidelines were followed. Assessment and Plan (1) Diverticulitis: Status: Acute (2) Generalized anxiety disorder: Status: Acute (3) Hypertension: Qualifiers: Hypertension type: essential hypertension Qualified Code(s): I10 - Essential (primary) hypertension Status: Acute (4) Hypercholesterolemia: Status: Acute Plan This is a 87-year-old female with pertinent history of essential hypertension, mixed hyperlipidemia, generalized anxiety disorder who was brought to the emergency department from [facility] for evaluation of left lower quadrant abdominal pain. #. Acute uncomplicated diverticulitis - will admit patient and initiate empiric antibiotics, Rocephin and Flagyl. Morphine IV p.r.n. for pain control. Initiating full liquid diet and advance as tolerated. No abscess on imaging. Resuscitated with IV crystalloids in the ER. Will need outpatient colonoscopy after complete resolution of symptoms. #. essential hypertension - continue home medications #. generalized anxiety disorder - continue clonazepam p.r.n. #. mixed hyperlipidemia -on simvastatin Med rec pending DVT prophylaxis: Lovenox 40 mg daily Full code Full liquid diet. Advance as tolerated Admit as inpatient and will require two night minimum hospital stay for IV antibiotics and pain control. Quality Stroke Does the patient have a stroke diagnosis?: No VTE Prior VTE?: No VTE Risk Level:: Medical - moderate - high VTE Device Contraindication: Treatment Not Indicated VTE Drug Contraindication: N/A - Med Ordered
[2022-09-08] MEDS: metroNIDAZOLE/NS 500 MG/100 ML PIGGYBACK 100 MG IV (22:15)
[2022-09-08 22:20] VITALS: BP 159/79; PULSE 82; RESP 16; TEMP 37.1; O2SAT 98
[2022-09-08 23:06] LABS: COVID-19 Test Negative (Negative); IDNOW Serial# 55D5AD1C
[2022-09-08 23:47] VITALS: BP 159/78; PULSE 77; RESP 18; TEMP 36.8; O2SAT 97
[2022-09-09] VITALS (7 sets, daily range): BP systolic 114–157; BP diastolic 60–75; PULSE 18–108; RESP 16–20; TEMP 36.2–37.2; O2SAT 94–98
--- NOTE | 2022-09-09 00:36 | PC.NURSE ---
0000 ROUNDING DONE ,VS TAKEN PUREWICK IN PLACE ,PT ASK TO USE PHONE TO CALL A FRIEND ,CALL QUEEN WITHIN REACH .
--- NOTE | 2022-09-09 01:15 | PC.NURSE ---
pt was wet inc care given new purewick in place ,bedding change ,pt had a mili xiomara .
--- NOTE | 2022-09-09 01:56 | PC.NURSE ---
0200 ROUNDING DONE PT ASLEEP AND DRY ,CALL QUEEN WITHIN REACH .
--- NOTE | 2022-09-09 04:01 | PC.NURSE ---
pt was concerned about her cat in her house. cat has food but will run out by morning. pt did call a neighbor to care for the cat and pt was no longer aniouse and is now sleeping. pt repositions self.
--- NOTE | 2022-09-09 04:53 | PC.NURSE ---
see belonging list: pt has $365.00 in jones in her purse. pt also brought all her jewlery from home states she feels unsafe with it in her home. jewlery was made up of multiple small plastic baggies with mixed rings, earrings, braclet. pt offered to have them locked up in our security safe and pt refused. the jewlery was confirmed with Geeta ortiz, Emily levy and myself Carrie ORTIZ. (Jewlery is in a white safty seal bag with pt signature and placed back in her purse per pt instructions.
[2022-09-09] MEDS: metroNIDAZOLE/NS 500 MG/100 ML PIGGYBACK 100 MG IV ×3 (05:48→21:15)
[2022-09-09 05:54] LABS: MANUAL DIFF FLAG NO
[2022-09-09 05:59] LABS: Basophils Percent Auto 0.4 % (0-2); Eosinophils Absolute Auto 0.1 X10*3/uL (0.0-0.4); Eosinophils Percent Auto 1.2 % (0-4); Hematocrit 38.1 % (37.0-47.0); Hemoglobin 13.2 g/dl (12.0-16.0); Imm Gran Abs Auto 0.02 X10*3/uL (0.00-0.03); Imm Gran Pct Auto 0.3 % (0.0-0.4); Lymphocytes Absolute Auto 1.3 X10*3/uL (1.2-4.9); Mean Corpuscular HGB Conc 34.6 g/dl (31.0-35.0); Mean Corpuscular Hemoglobin 30.5 pg (27.0-33.0); Mean Platelet Volume 10.4 fL (9.4-12.3); Monocytes Absolute Auto 0.8 X10*3/uL (0.1-1.2); Monocytes Percent Auto 10.7 % (2-11); Neutrophils Absolute Auto 5.1 x10*3/uL (2.0-8.3); Neutrophils Percent Auto 69.4 % (45-73); Platelet Count 174 X10*3/uL (160-400); Red Blood Count 4.33 X10*6/uL (4.20-5.50); White Blood Count 7.3 X10*3/uL (4.8-10.8)
--- NOTE | 2022-09-09 06:03 | PC.NURSE ---
Addendum entered by Akanksha Salvador RN 09/09/22 06:45: 15 $1.oo bills found in purse by PT which was counted by 2 staff and documented so PT has total of $380.00 total. All santos is with PT at bedside in envelopes and purse. Original Note: PT admitted from ED OV with santos and 4 bags of jewelry with rings earrings and bracelets, PT refusing to let staff send valuables to security or go through belongings thoroughly, Nurse stewardess supervisor Diann notified. Santos was counted in ED OV and sealed in an envelope, $365, PT refusing to go through jewlry with staff. PT has belonings at the bedside. Belongings sheet in PT chart and PT has a copy fro ED OV. PT also came with a purse, glasses, cane, upper dentures and clothing all at bedside. PT has a necklace and 2 rings on self.
[2022-09-09 06:15] LABS: Anion Gap 14 (12-20); Blood Urea Nitrogen 10 mg/dL (9-16); Calcium 8.8 mg/dL (8.4-10.2); Carbon Dioxide 21 mmol/L (22-29); Chloride 108 mmol/L (96-108); Creatinine Clr Calc Pharmacy 44.1; Estimated Glomerular Filt Rate > 60; Glucose Random 105 mg/dL (60-115); Potassium 3.7 mmol/L (3.3-5.1); Sodium 139 mmol/L (135-145)
[2022-09-09] MEDS: 0.9 % Sodium Chloride Flush 3 ML SYRINGE IVFLUSH ×3 (07:43→19:48)
[2022-09-09] MEDS: Multivitamin TABLET 1 TAB PO (10:32)
[2022-09-09] MEDS: Cholecalciferol (Vitamin D3) 25 MCG TABLET PO (10:32)
[2022-09-09] MEDS: Lidocaine 4 % Patch ADH..PATCH 0.5 PATCH TRANSDERMA (10:32)
--- NOTE | 2022-09-09 11:04 | P.PNIM_ITS ---
Subjective Subjective Date of Service: 09/09/22 Interval History: patient seen and examined at bedside. She states that she has no abdominal pain at this time, no nausea or vomiting, she tolerated her breakfast well. She reports that she had abdominal pain and bloating few days prior resolved. She is complaining of left leg pain significant on palpation of the leg, reports no history of neuropathy. reports the pain to be 10/10, resolves within minutes, occurs spontaneously. Started today. Patient denies any chest pain, no shortness of breath, no abdominal pain nausea or vomiting, no urinary symptoms. She is moving her bowels. no weakness numbness or tingling. Review of Systems Review of Systems: Yes all other systems are reviewed and are negative Physical Exam Vital Signs: Vital Signs: Last Vital Signs Temp 97.5 F 09/09/22 07:41 Pulse 18 L 09/09/22 07:41 Resp 18 09/09/22 07:41 BP 136/60 09/09/22 07:41 Pulse Ox 97 09/09/22 07:41 O2 Del Method 09/09/22 07:41 BMI result Body Mass Index 23.0 Const: Other: Patient alert oriented, is very distressed about the pain in her leg Resp: Other: normal respiratory rate, lungs clear to auscultation bilaterally Cardio: Other: normal rate and rhythm GI: Other: abdomen soft, nontender, no distension Extrem: Other: left lower extremity, no erythema, no warmth, very tender on light touch Objective Data Active Medications Acetaminophen (Acetaminophen 325 Mg Tablet) 650 mg PO Q6H PRN PRN Reason: Pain, Mild (Pain Scale 1-3) Atenolol (Atenolol 50 Mg Tablet) 50 mg PO DAILY@1700 [place]; Protocol Clonazepam (Clonazepam 0.5 Mg Tablet) 0.5 mg PO DAILY PRN PRN Reason: anxiety Enoxaparin Sodium (Enoxaparin Sodium 40 Mg/0.4 Ml Syringe) 40 mg SUBCUT Q24H [facility] Last Admin: 09/08/22 21:15 Dose: 40 mg Documented By: ADAMARIS Metronidazole (Flagyl) 500 mg in 100 mls @ 100 mls/hr IV Q8H [facility] Last Infusion: 09/09/22 07:43 Dose: 0 mls/hr Documented By: ELTON Ceftriaxone Sodium 2 gm/ (Sodium Chloride) 50 mls @ 100 mls/hr IV Q24H [facility] Melatonin (Melatonin 3 Mg Tablet) 6 mg PO BEDTIME PRN PRN Reason: insomnia Morphine Sulfate (Morphine Sulfate 2 Mg/Ml Cartridge) 2 mg IVPUSH Q6H PRN; Protocol PRN Reason: Pain, Severe (Pain Scale 7-10) Multivitamins/Vitamin C (Multivitamin Tablet) 1 tab PO DAILY [facility] Last Admin: 09/09/22 10:32 Dose: 1 tab Documented By: ELTON Non-Formulary Medication (Simvastatin) 5 mg PO DAILY@1700 [facility] Ondansetron HCl (Ondansetron Hcl 4 Mg/2 Ml Vial) 4 mg IVPUSH Q8H PRN PRN Reason: nausea Pharmacy Consult (Consult Rx Perform Med Rec) 1 each MISCELLANE ONCE PRN PRN Reason: Consult order Sodium Chloride (0.9 % Sodium Chloride Flush 3 Ml Syringe) 3 ml IVFLUSH QSHIFT [facility] Last Admin: 09/09/22 07:43 Dose: 3 ml Documented By: ELTON Vitamin D (Cholecalciferol (Vitamin D3) 25 Mcg Tablet) 25 mcg PO DAILY [facility] Last Admin: 09/09/22 10:32 Dose: 25 mcg Documented By: ELTON Labs CBC & Chem 7: 09/09/22 05:40 09/09/22 05:40 Labs: Laboratory Results - last 24 hr 09/08/22 09/08/22 09/08/22 16:58 17:10 17:10 MCV 88.5 MCH 29.6 MCHC 33.5 RDW 12.9 Plt Count 182 MPV 10.2 Immature Gran % (Auto) 0.3 Neut % (Auto) 73.0 Lymph % (Auto) 15.6 L [place] % (Auto) 10.6 Eos % (Auto) 0.4 Baso % (Auto) 0.1 Lymph # (Auto) 1.4 [place] # (Auto) 1.0 Eos # (Auto) 0.0 Baso # (Auto) 0.0 Abs Immat Gran (auto) 0.03 Absolute Neuts (auto) 6.6 Absolute Nucleated RBC 0.000 Nucleated RBC % (auto) 0.0 Anion Gap 17 Estim Creat Clear Calc 38.7 Estimated GFR > 60 Random Glucose 124 H Calcium 9.9 D Magnesium 2.2 Total Bilirubin 1.0 Direct Bilirubin 0.4 AST 24 ALT 17 Alkaline Phosphatase 68 D Total Protein 7.2 Albumin 4.2 Lipase 23 Urine Color Yellow Urine Appearance Clear Urine pH 5.5 Ur Specific [place] 1.010 Urine Protein Negative Urine Glucose (UA) Negative Urine Ketones Negative Urine Blood Negative Urine Nitrite Negative Ur Leukocyte Esterase Trace H Urine RBC 0-2 Urine WBC 0-5 Ur Squamous Epith Cells 0-2 Urine Bacteria None Seen Hyaline Casts 0-2 COVID-19 ([facility]) COVID-19 Clin Com 09/08/22 09/09/22 09/09/22 22:45 05:40 05:40 MCV 88.0 MCH 30.5 MCHC 34.6 RDW 13.0 Plt Count 174 MPV 10.4 Immature Gran % (Auto) 0.3 Neut % (Auto) 69.4 Lymph % (Auto) 18.0 L [place] % (Auto) 10.7 Eos % (Auto) 1.2 Baso % (Auto) 0.4 Lymph # (Auto) 1.3 [place] # (Auto) 0.8 Eos # (Auto) 0.1 Baso # (Auto) 0.0 Abs Immat Gran (auto) 0.02 Absolute Neuts (auto) 5.1 Absolute Nucleated RBC 0.000 Nucleated RBC % (auto) 0.0 Anion Gap 14 Estim Creat Clear Calc 44.1 Estimated GFR > 60 Random Glucose 105 Calcium 8.8 D Magnesium Total Bilirubin Direct Bilirubin AST ALT Alkaline Phosphatase Total Protein Albumin Lipase Urine Color Urine Appearance Urine pH Ur Specific [place] Urine Protein Urine Glucose (UA) Urine Ketones Urine Blood Urine Nitrite Ur Leukocyte Esterase Urine RBC Urine WBC Ur Squamous Epith Cells Urine Bacteria Hyaline Casts COVID-19 ([facility]) Negative COVID-19 Clin Com See Note Assessment and Plan (1) Diverticulitis: Status: Acute (2) Left leg pain: Status: Acute Plan This is a 87-year-old female with pertinent history of essential hypertension, mixed hyperlipidemia, generalized anxiety disorder who was brought to the emergency department from [facility] for evaluation of left lower quadrant abdominal pain. #Acute uncomplicated diverticulitis - tolerating clear liquids - no evidence of sepsis, no leukocytosis, afebrile - continue Rocephin and Flagyl- will switch to p.o. - pain control p.r.n. - will advance diet as tolerated - Will need outpatient colonoscopy after complete resolution of symptoms # left leg pain - venous duplex to rule out DVT - lidocaine patch #. essential hypertension - stable - continue home medications #generalized anxiety disorder - continue clonazepam p.r.n. #. mixed hyperlipidemia -on simvastatin Med rec pending DVT prophylaxis: Lovenox 40 mg daily Full code Full liquid diet. Advance as tolerated Admit as inpatient and will require two night minimum hospital stay for IV antibiotics and pain control Quality Stroke Does the patient have a stroke diagnosis?: No VTE Prior VTE?: No VTE Risk Level:: Medical - moderate - high VTE Device Contraindication: Treatment Not Indicated VTE Drug Contraindication: N/A - Med Ordered
[2022-09-09] MEDS: atenoloL 50 MG TABLET PO (16:00)
[2022-09-09] MEDS: Enoxaparin Sodium 40 MG/0.4 ML SYRINGE SUBCUT (19:48)
[2022-09-09] MEDS: cefTRIAXone sodium 2 GM in 0.9 % Sodium Chloride 50 ML IV (20:10)
[2022-09-10] VITALS: BP 131/68; PULSE 71; RESP 16; TEMP 36.2; O2SAT 96
[2022-09-10 00:20] VITALS: BP 167/76; PULSE 79; RESP 16; TEMP 36.1; O2SAT 98
[2022-09-10 03:45] VITALS: BP 145/75; PULSE 76; RESP 16; TEMP 36.3; O2SAT 97
[2022-09-10] MEDS: Acetaminophen 325 MG TABLET 650 MG PO ×2 (04:00→11:36)
--- NOTE | 2022-09-10 04:02 | PC.NURSE ---
pt complained back, neck and knee. RN offered for the Acetaminophen 650 mg, pt wants to take 325 mg only. one of 325 mg wasted.
[2022-09-10] MEDS: metroNIDAZOLE/NS 500 MG/100 ML PIGGYBACK 100 MG IV ×2 (05:08→13:35)
--- NOTE | 2022-09-10 05:25 | PC.NURSE ---
pt's right arm has limitation of lifting bc of shoulder pain. pt using left hand to holding the right arm to above the heart. pt states that do not know when was starting. it started couple month ago.
[2022-09-10] MEDS: clonazePAM 0.5 MG TABLET PO (05:41)
--- NOTE | 2022-09-10 05:54 | PC.NURSE ---
pt continuously talking and crying. pt states that talk to her boy friend, people steels her belonging in her house so she carries bag of jewelries and jones $380.00 , no one help her to clean the house, house is [address] years old. no one can bring her to [facility]. she does not get along with her case reviewer for the home services. non stop talking to every staffs. pt alert oriented x 3 except day and date due to no calender in the room.
[2022-09-10 07:38] VITALS: BP 132/73; PULSE 77; RESP 18; TEMP 36.1; O2SAT 96
[2022-09-10] MEDS: Cholecalciferol (Vitamin D3) 25 MCG TABLET PO (07:38)
[2022-09-10] MEDS: Multivitamin TABLET 1 TAB PO (07:39)
[2022-09-10] MEDS: 0.9 % Sodium Chloride Flush 3 ML SYRINGE IVFLUSH (07:39)
[2022-09-10 11:22] VITALS: BP 143/78; PULSE 81; RESP 18; TEMP 36.3; O2SAT 96
--- NOTE | 2022-09-10 13:53 | PM.DS ---
DS: Providers Provider Date of Service: 09/10/22 Date of admission: 09/08/22 20:23 Primary care physician: D[place] Physician DS: Diagnosis Discharge Diagnosis (1) Diverticulitis: Status: Acute (2) Left leg pain: Status: Acute DS: Summary Hospital Course Hospital Course: this is an 87-year-old female with past medical history of hypertension, HLD, general anxiety disorder, presented to the hospital on 09/08 with complaints of lower quadrant abdominal pain and distension. with imaging consistent with acute diverticulitis with no evidence of abscess or perforation. Patient was initially started on clear liquids and started on IV antibiotics, she then advanced to regular diet with complete tolerance with no pain nausea or vomiting. today patient tolerated her regular diet with no acute complications. She will be switched to p.o. antibiotics and will be sent home on ciprofloxacin and is all x7 days. Advised to follow-up with primary care physician within 1 week. while in the hospital she complained left lower extremity pain. Venous duplex ruled out PE. Pain resolved on day Day 2 of hospitalization. On day of discharge patient is pain-free. Patient comes from home and will be discharged home patient also advised to follow-up with GI for colonoscopy on discharge. Time Spent with Patient Time attestation: Total time spent providing and/or coordinating discharge services: Discharge coordination time: Greater than 30 minutes Quality: Safe Use of Opioids Does Pt have an Active Cancer Diagnosis on the Problem List?: No Quality: Stroke Does the patient have a stroke diagnosis?: No Physical Exam Vital Signs: Vital Signs: Last Vital Signs Temp 97.4 F 09/10/22 11:22 Pulse 81 09/10/22 11:22 Resp 18 09/10/22 11:22 BP 143/78 H 09/10/22 11:22 Pulse Ox 96 09/10/22 11:22 O2 Del Method 09/10/22 11:22 BMI result Body Mass Index 23.0 Const: Other: alert oriented x3 Resp: Other: Lungs clear to auscultation GI: Other: abdomen is soft, nontender, nondistended, no rebound or guarding Discharge Plan Discharge Anticipated Discharge Date/Time: 09/10/22 12:14 Patient Disposition: Home, Self-Care Discharge Diagnosis: Diverticulitis Referrals: Physician,Darien Dominique [Primary Care Provider] - 3 days Yong Gerardo [Physician] - 1 Week (Call to book for colonoscopy ) Discharge Medications: New metronidazole 500 mg tablet 500 mg PO Q8H 7 Days Qty: 21 0RF ciprofloxacin HCl 500 mg tablet 500 mg PO BID 7 Days Qty: 14 0RF Continued (DME) cane Device See Rx Instructions .Route Qty: 1 0RF Rx Instructions: As directed (DME) QUAD CANE See Rx Instructions .Route .MEDSUPPLY Qty: 1 0RF Rx Instructions: As directed clonazepam 0.5 mg tablet 0.5 mg PO DAILY PRN (Reason: anxiety) 30 Days Qty: 30 0RF acetaminophen 325 mg Tablet 325 mg PO QID PRN (Reason: Pain) simvastatin 5 mg tablet 5 mg PO DAILY@1700 atenolol 50 mg tablet 50 mg PO DAILY@1700 cholecalciferol (vitamin D3) 25 mcg (1,000 unit) capsule 25 mcg PO DAILY [id number]-lutein Tablet 1 tab PO DAILY (DME) lightweight Walker See Rx Instructions .Route .MEDSUPPLY Qty: 1 0RF Rx Instructions: As directed Discharge Orders: Discharge Order (Routine); Ordered 09/10/22 Ordered By: Juan Carlos Bell Diet: Advance to usual diet Activity on Discharge: As tolerated Stand Alone Forms: Patient Portal Discharge page Care Plan Goals: Please continue antibiotics for the next 7 days Please follow up with primary care physician in 1 wk Health Concerns: recurrent diverticulitis Plan of Treatment: Finish antibiotic course bland diet please follow up with Gastroenterology for colonoscopy Assessment: as above
--- NOTE | 2022-09-10 14:12 | MHC.CM.PN ---
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
[2022-09-10] MEDS: ondansetron HCL 4 MG/2 ML VIAL IVPUSH (14:25)
[2022-09-10 15:12] VITALS: BP 118/58; PULSE 104; RESP 18; TEMP 36.2; O2SAT 96
== END 2022-09-10 16:54 | disposition home or self-care (01) | DRG 392 ==
LOC: HO.ED 20:15 → HO.EDOVER 20:48 → HO.S3 09-09 03:24
PROVIDERS: Physician Assistant; Admitting Provider Student in an Organized Health Care Education/Training Program; Emergency Provider Student in an Organized Health Care Education/Training Program; PCP Internal Medicine; Visit Provider Internal Medicine
DX: K57.32 Diverticulitis of large intestine without perforation or abscess without bleeding (principal); E78.2 Mixed hyperlipidemia; F41.1 Generalized anxiety disorder; M79.605 Pain in left leg; I10 Essential (primary) hypertension; Z88.0 Allergy status to penicillin; Z88.5 Allergy status to narcotic agent; Z79.899 Other long term (current) drug therapy
CPT/HCPCS: 36415; 74177; 80048; 80076; 81001; 83690; 83735; 85025; 87635; 93971; 99285; J0696; J1650; J2405; Q9967

== ENCOUNTER 2022-09-16 23:44 | Emergency (ER) | payer MEDICARE, MEDICAID, SELFPAY ==
--- NOTE | ~2022-09-16 | CT_ITS ---
EXAMINATION: CT ABDOMEN AND PELVIS WITH CONTRAST CLINICAL INFORMATION: worsening LLQ pain, dx diverticulitis COMPARISON: 09/08/2022 TECHNIQUE: Multidetector volumetric images were obtained from the superior aspect of the liver through the pubic symphysis following administration 85 mL of Omnipaque 350 intravenous contrast. Sagittal and coronal reformatted images were obtained on the technologist's workstation. Oral contrast: No This CT examination was performed using dose optimization techniques as appropriate, variously including the following: *Automated exposure control *Adjustment of mA and/or kV according to patient size (this includes techniques or standardized protocols for targeted exams where dose is matched to indication/reason for exam; i.e. extremities or head) *Use of iterative reconstruction technique DLP: 406 mGy-cm FINDINGS: LUNG BASES: Minimal dependent atelectasis. Moderate-sized hiatal hernia. There LIVER, GALLBLADDER, AND BILIARY TREE: The liver is normal in size, shape, and attenuation. No focal hepatic lesion or biliary ductal dilatation is present. Gallbladder surgically absent. Common bile duct is prominent but nondilated. PANCREAS: There is a medial margin of the pancreatic head which is unchanged from prior and was present on multiple, possibly sequela of prior pancreatitis. No acute pancreatic findings. SPLEEN: Unremarkable. ADRENAL GLANDS: Unremarkable. KIDNEYS AND URETERS: The kidneys are normal in size, shape, and attenuation. No hydronephrosis, hydroureter, or calculi seen. No perinephric stranding. BLADDER: Unremarkable. GASTROINTESTINAL TRACT: Moderate-sized hiatal hernia with most of the stomach representing cephalad to the diaphragmatic hiatus. No wall thickening or surrounding fat stranding. Stomach, small bowel, and colon are normal in caliber. Moderate diverticulosis in the distal descending colon and sigmoid colon. No evidence of acute diverticulitis. Previously seen diverticulitis has resolved. Moderate volume stool throughout the colon. Appendix is not clearly seen, no findings of acute appendicitis are identified. ABDOMINAL WALL: No significant hernia is appreciated. LYMPH NODES: Normal. VASCULAR: Atherosclerotic calcifications are present in the abdominal aorta and iliac arteries. No aneurysmal dilatation. PELVIC VISCERA: Uterus is surgically absent. No adnexal lesions. OSSEOUS STRUCTURES: Marked sigmoid rotoscoliosis in the lumbar spine with left convexity centered at L4 and right convexity centered at the L1-L2. Marked multilevel degenerative spondylosis no acute fractures. CT/CT abdomen pelvis w IV con IMPRESSION: 1. No acute intra-abdominal or intrapelvic abnormalities. Previously suspected diverticulitis has resolved. 2. Moderate-sized hiatal hernia. 3. Marked lumbar rotoscoliosis with associated degenerative spondylosis. Fleischner guidelines were followed.
[2022-09-16 23:59] VITALS: BP 110/70; PULSE 120; PULSE 97; RESP 20; TEMP 37.5; O2SAT 98; O2SAT 99; BMI 22.1
[2022-09-17] VITALS (7 sets, daily range): BP systolic 135–155; BP diastolic 61–83; PULSE 87–108; RESP 16–20; TEMP 37–37.9; O2SAT 95–99
--- NOTE | 2022-09-17 00:01 | ECG_ITS ---
Test Reason : ABD PAIN Blood Pressure : / mmHG Vent. Rate : 097 BPM Atrial Rate : 097 BPM P-R Int : 140 ms QRS Dur : 082 ms QT Int : 340 ms P-R-T Axes : 036 047 054 degrees QTc Int : 431 ms Normal sinus rhythm Low voltage QRS Nonspecific ST abnormality Abnormal ECG When compared with ECG of 17-AUG-2022 11:49, Premature ventricular complexes are no longer Present Referred By: Flor An Electronically Signed By:PA COLON MD
--- NOTE | 2022-09-17 00:05 | ED_ITS ---
HPI - Abdominal Pain General Chief Complaint: Abdominal Pain Stated Complaint: lower abdominal pain Time Seen by Provider: 09/16/22 23:48 Source: patient Mode of arrival: ambulatory Limitations: no limitations History of Present Illness HPI narrative: Patient comes to the emergency room complaining of worsening left lower quadrant pain. Patient states that she was seen here on September 08, diagnosed with acute diverticulitis, patient was sent home with ciprofloxacin and metronidazole. For the 1st couple of days, patient started feeling better, but over the last 3 days, the pain returned and is now much worse. Patient denies vomiting or diarrhea, complaining of constipation. Related Data Home Medications Medication Instructions Recorded Confirmed cholecalciferol (vitamin D3) 25 25 mcg PO DAILY 12/17/20 09/14/22 mcg (1,000 unit) capsule peczwghp-spppqnx-thrd-lutein tablet 1 tab PO DAILY 12/17/20 09/14/22 acetaminophen 325 mg tablet 325 mg PO QID PRN Pain 09/08/22 09/14/22 Previous Rx's Medication Instructions Recorded lightweight Walker #1 ea 06/27/21 cane #1 ea 12/15/21 QUAD CANE #1 ea 12/16/21 clonazepam 0.5 mg tablet 0.5 mg PO DAILY PRN anxiety 30 08/25/22 days #30 tabs ciprofloxacin HCl 500 mg tablet 500 mg PO BID 7 days #14 tabs 09/10/22 metronidazole 500 mg tablet 500 mg PO Q8H 7 days #21 tabs 09/10/22 atenolol 50 mg tablet 50 mg PO DAILY@1700 90 days #90 09/15/22 tabs simvastatin 5 mg tablet 5 mg PO DAILY@1700 90 days #90 tabs 09/15/22 Allergies Allergy/AdvReac Type Severity Reaction Status Date / Time Penicillins Allergy Mild RASH Verified 09/14/22 09:54 acetaminophen [Percocet] Allergy Unknown nausea Verified 09/14/22 09:54 clindamycin [CLINDAMYCIN] Allergy Unknown FELT Verified 09/14/22 09:54 AWFUL/upset stomach penicillin V Allergy Unknown rash Verified 09/14/22 09:54 oxycodone [OXYCODONE] AdvReac Unknown STOMACH Verified 09/14/22 09:54 UPSET From [facility] Allergy Mild GI UPSET Uncoded 09/08/22 14:17 Review of Systems Review of Systems Constitutional : No Weight loss, No Fever, No Chills, No Night Sweats, No Fatigue, No Malaise ENT/Mouth : No Hearing loss, No Ear Pain, No Nasal Congestion, No Sinus Pain, No Hoarseness, No sore throat, No Rhinorrhea, No Swallowing Difficulty Eyes: No Eye Pain, No Swelling, No Redness, No Foreign Body, No Discharge, No Vision Changes Cardiovascular : No Chest Pain, No SOB, No Dyspnea on Exertion, No Orthopnea, No Edema, No Palpitations Respiratory : No Cough, No Sputum, No Wheezing, No Smoke Exposure, No Dyspnea Gastrointestinal : Patient complaining of bilateral lower quadrant pain, much worse on the left lower quadrant Genitourinary : no irregular bleeding, No Dysuria, No Urinary Frequency, No Hematuria, No Urinary Incontinence, No Urgency, No Flank Pain, No Urinary Flow Changes, No Hesitancy Musculoskeletal : No joint pain, No Myalgias, No Joint Swelling Skin : No Skin Lesions, No rash Neuro : No Weakness, No Numbness, No Paresthesias, No Loss of Consciousness, No Dizziness, No Headache Psych : No Anxiety/Panic, No Depression, No SI/HI/AH/VH, No Social Issues, Heme/Lymph: No Bruising, No Bleeding,No Lymphadenopathy Endocrine : No Polyuria, No Polydipsia, No Temperature Intolerance FOR[facility]LY [facility], [facility] Past Medical History Medical History Asthma Cataracts, bilateral Cervical spondylosis Cholelithiasis Diverticulitis Generalized anxiety disorder Goiter Hypercholesterolemia Hypertension Impaired glucose tolerance LLQ pain Osteopenia Post-menopausal Problem of both ears Scoliosis Surgical History History of cataract surgery History of colonoscopy Hx of cholecystectomy Hx of tonsillectomy Status post total abdominal hysterectomy Family History Family History Father No problems noted. Mother No problems noted. Social History Social History Household Members: None Housing: Apartment Do you presently have visiting nurse or other home services: Yes Alcohol intake: never Patient Tobacco Use Status: Never used Tobacco Smoked in Last 30 Days: No e-Cigarette/Vaping Use: Never Used Second Hand Smoke Exposure: No Use of substances other than those prescribed or required for medical reasons: No Advance Directives: No Advance Directives Information Provided: Yes service: No Current occupational status: retired and disabled Cognitive needs: Yes (cane, walker) Hearing needs: No Vision needs: Yes Physical Exam ED Vital Signs: Vital Signs - 24 hr 09/16/22 23:59 09/17/22 00:21 09/17/22 01:58 Temperature 99.5 F 99.5 F 98.9 F Pulse Rate 97 87 104 H Respiratory Rate 20 20 16 Blood Pressure 144/77 H 135/83 Pulse Oximetry 98 99 98 Oxygen Delivery Method Room Air Room Air Room Air BMI result Body Mass Index 22.1 Const Other: Appearance: Alert. Oriented X3. No acute distress. Eyes: Pupils equal, round and reactive to light. ENT: Pharynx normal. Neck: Normal inspection. Neck supple. No lymph nodes noted. No crepitus CVS: Normal heart rate and rhythm. Pulses normal. Normal S1 and S2 Respiratory: No respiratory distress. Breath sounds normal. No Wheezing. No rales Abdomen: Soft , complaining of pain to deep palpation over the left lower quadrant Skin: Skin warm and dry. Normal skin color. Normal skin turgor. Extremities: No lower extremity edema. No Lacerations. No Rash Neuro: Oriented X 3. No motor deficit. No sensory deficit. Moving all extremities. No slurred speech. CN 2 through 12 grossly intact Psych: calm, cooperative, very anxious Course Course Course Narrative: Patient complaining of worsening left lower quadrant pain, patient was diagnosed with diverticulitis approximately 9 days ago. Patient denies fever chills, no URI or UTI symptoms. All patient's labs are pending including CT scans. 01:04 I received a phone call from the lab with critical values. Patient's PT is greater than 320 and INR greater than 26. The rest of the patient's labs are within normal limits. Patient does not take any blood thinners including Coumadin and there is no medical reason why pt's INR would be this elevated. Physically, pt has no bruising or any signs of a supratherapeutic INR. Patient's liver function tests are normal. I believe this is a lab error. We will redraw PT INR again. INR was recheck, suspected, this was a lab error. INR is 1.2 I discussed the labs and CT with the patient, the diverticulitis is actually getting better. At this time, patient does not have any abdominal pain. However, patient is very anxious about going home. Patient states that she does not get along her case management associate, lately the 80s who takes care of her at home has not been showing up. Patient is asking if she could talk to our case management associate and arrange for additional care at home. Case management consult pending. Physician observation started at 03:20 Medications Administered Discontinued Medications Generic Name Dose Route Start Last Admin Trade Name Freq PRN Reason Stop Dose Admin Iohexol 85 ml 09/17/22 02:32 09/17/22 02:33 Iohexol 350 Mg/Ml 100 Ml Infus..Btl IV 09/17/22 02:33 85 ml ONCE ONE Administration MDM - Abdominal Pain Lab Data Result diagrams: 09/17/22 00:20 09/17/22 00:20 Labs: Lab Results 09/17/22 09/17/22 09/17/22 Range/Units 00:20 00:20 00:20 WBC 6.3 (4.8-10.8) X10*3/uL RBC 4.33 (4.20-5.50) X10*6/uL Hgb 13.0 (12.0-16.0) g/dl Hct 40.3 (37.0-47.0) % MCV 93.1 (80.0-98.0) fL MCH 30.0 (27.0-33.0) pg MCHC 32.3 (31.0-35.0) g/dl RDW 13.2 (11.0-16.0) % Plt Count 204 (160-400) X10*3/uL MPV 10.4 (9.4-12.3) fL Immature Gran % (Auto) 0.3 (0.0-0.4) % Neut % (Auto) 67.4 (45-73) % Lymph % (Auto) 17.8 L (20-40) % [place] % (Auto) 13.1 H (2-11) % Eos % (Auto) 0.9 (0-4) % Baso % (Auto) 0.5 (0-2) % Lymph # (Auto) 1.1 L (1.2-4.9) X10*3/uL [place] # (Auto) 0.8 (0.1-1.2) X10*3/uL Eos # (Auto) 0.1 (0.0-0.4) X10*3/uL Baso # (Auto) 0.0 (0.0-0.2) X10*3/uL Abs Immat Gran (auto) 0.02 (0.00-0.03) X10*3/uL Absolute Neuts (auto) 4.3 (2.0-8.3) x10*3/uL Absolute Nucleated RBC 0.000 (0.0-0.012) X10*3/uL Nucleated RBC % (auto) 0.0 (0.0-0.2) /100WBC PT > 320.0 H (10.0-13.1) SEC INR > 26.0 H* D (0.9-1.1) Sodium 139 (135-145) mmol/L Potassium 4.0 (3.3-5.1) mmol/L Chloride 106 (96-108) mmol/L Carbon Dioxide 21 L (22-29) mmol/L Anion Gap 16 (12-20) BUN 15 (9-16) mg/dL Creatinine 0.93 (0.5-1.4) mg/dL Estim Creat Clear Calc 33.7 Estimated GFR 57 Random Glucose 162 H (60-115) mg/dL Lactic Acid (0.5-2.0) mmol/L Calcium 9.4 D (8.4-10.2) mg/dL Magnesium 2.0 (1.6-2.6) mg/dL Total Bilirubin 0.5 (0.0-1.0) mg/dL Direct Bilirubin 0.3 (0.0-0.5) mg/dL AST 25 (5-31) U/L ALT 23 (0-31) U/L Alkaline Phosphatase 50 D (39-117) U/L Troponin I High Sens (<3.5-17.0) ng/L Total Protein 6.4 L (6.5-8.0) g/dL Albumin 3.8 (3.5-5.0) g/dL Lipase 23 (8-78) U/L Urine Color Urine Appearance Urine pH (5.0-9.0) Ur Specific [place] (1.005-1.025) Urine Protein (Neg-Trace) mg/dL Urine Glucose (UA) (Negative) mg/dL Urine Ketones (Negative) mg/dL Urine Blood (Negative) Urine Nitrite (Negative) Ur Leukocyte Esterase (Negative) Urine RBC (0-2) /HPF Urine WBC (0-5) /HPF Ur Squamous Epith Cells (0-2) /HPF Urine Bacteria (None Seen) Hyaline Casts (0-2) /LPF COVID-19 ([facility]CIE) (Negative) COVID-19 Clin Com 09/17/22 09/17/22 09/17/22 Range/Units 00:20 00:20 00:20 WBC (4.8-10.8) X10*3/uL RBC (4.20-5.50) X10*6/uL Hgb (12.0-16.0) g/dl Hct (37.0-47.0) % MCV (80.0-98.0) fL MCH (27.0-33.0) pg MCHC (31.0-35.0) g/dl RDW (11.0-16.0) % Plt Count (160-400) X10*3/uL MPV (9.4-12.3) fL Immature Gran % (Auto) (0.0-0.4) % Neut % (Auto) (45-73) % Lymph % (Auto) (20-40) % [place] % (Auto) (2-11) % Eos % (Auto) (0-4) % Baso % (Auto) (0-2) % Lymph # (Auto) (1.2-4.9) X10*3/uL [place] # (Auto) (0.1-1.2) X10*3/uL Eos # (Auto) (0.0-0.4) X10*3/uL Baso # (Auto) (0.0-0.2) X10*3/uL Abs Immat Gran (auto) (0.00-0.03) X10*3/uL Absolute Neuts (auto) (2.0-8.3) x10*3/uL Absolute Nucleated RBC (0.0-0.012) X10*3/uL Nucleated RBC % (auto) (0.0-0.2) /100WBC PT (10.0-13.1) SEC INR (0.9-1.1) Sodium (135-145) mmol/L Potassium (3.3-5.1) mmol/L Chloride (96-108) mmol/L Carbon Dioxide (22-29) mmol/L Anion Gap (12-20) BUN (9-16) mg/dL Creatinine (0.5-1.4) mg/dL Estim Creat Clear Calc Estimated GFR Random Glucose (60-115) mg/dL Lactic Acid 1.1 (0.5-2.0) mmol/L Calcium (8.4-10.2) mg/dL Magnesium (1.6-2.6) mg/dL Total Bilirubin (0.0-1.0) mg/dL Direct Bilirubin (0.0-0.5) mg/dL AST (5-31) U/L ALT (0-31) U/L Alkaline Phosphatase (39-117) U/L Troponin I High Sens 4.9 (<3.5-17.0) ng/L Total Protein (6.5-8.0) g/dL Albumin (3.5-5.0) g/dL Lipase (8-78) U/L Urine Color Urine Appearance Urine pH (5.0-9.0) Ur Specific [place] (1.005-1.025) Urine Protein (Neg-Trace) mg/dL Urine Glucose (UA) (Negative) mg/dL Urine Ketones (Negative) mg/dL Urine Blood (Negative) Urine Nitrite (Negative) Ur Leukocyte Esterase (Negative) Urine RBC (0-2) /HPF Urine WBC (0-5) /HPF Ur Squamous Epith Cells (0-2) /HPF Urine Bacteria (None Seen) Hyaline Casts (0-2) /LPF COVID-19 ([facility]CIE) Negative (Negative) COVID-19 Clin Com See Note 09/17/22 09/17/22 Range/Units 01:17 01:17 WBC (4.8-10.8) X10*3/uL RBC (4.20-5.50) X10*6/uL Hgb (12.0-16.0) g/dl Hct (37.0-47.0) % MCV (80.0-98.0) fL MCH (27.0-33.0) pg MCHC (31.0-35.0) g/dl RDW (11.0-16.0) % Plt Count (160-400) X10*3/uL MPV (9.4-12.3) fL Immature Gran % (Auto) (0.0-0.4) % Neut % (Auto) (45-73) % Lymph % (Auto) (20-40) % [place] % (Auto) (2-11) % Eos % (Auto) (0-4) % Baso % (Auto) (0-2) % Lymph # (Auto) (1.2-4.9) X10*3/uL [place] # (Auto) (0.1-1.2) X10*3/uL Eos # (Auto) (0.0-0.4) X10*3/uL Baso # (Auto) (0.0-0.2) X10*3/uL Abs Immat Gran (auto) (0.00-0.03) X10*3/uL Absolute Neuts (auto) (2.0-8.3) x10*3/uL Absolute Nucleated RBC (0.0-0.012) X10*3/uL Nucleated RBC % (auto) (0.0-0.2) /100WBC PT 13.3 H (10.0-13.1) SEC INR 1.2 H D (0.9-1.1) Sodium (135-145) mmol/L Potassium (3.3-5.1) mmol/L Chloride (96-108) mmol/L Carbon Dioxide (22-29) mmol/L Anion Gap (12-20) BUN (9-16) mg/dL Creatinine (0.5-1.4) mg/dL Estim Creat Clear Calc Estimated GFR Random Glucose (60-115) mg/dL Lactic Acid (0.5-2.0) mmol/L Calcium (8.4-10.2) mg/dL Magnesium (1.6-2.6) mg/dL Total Bilirubin (0.0-1.0) mg/dL Direct Bilirubin (0.0-0.5) mg/dL AST (5-31) U/L ALT (0-31) U/L Alkaline Phosphatase (39-117) U/L Troponin I High Sens (<3.5-17.0) ng/L Total Protein (6.5-8.0) g/dL Albumin (3.5-5.0) g/dL Lipase (8-78) U/L Urine Color Yellow Urine Appearance Clear Urine pH 5.0 (5.0-9.0) Ur Specific [place] 1.015 (1.005-1.025) Urine Protein Negative (Neg-Trace) mg/dL Urine Glucose (UA) Negative (Negative) mg/dL Urine Ketones Trace (Negative) mg/dL Urine Blood Negative (Negative) Urine Nitrite Negative (Negative) Ur Leukocyte Esterase Small (1+) H (Negative) Urine RBC 0-2 (0-2) /HPF Urine WBC 11-20 H (0-5) /HPF Ur Squamous Epith Cells 3-5 (0-2) /HPF Urine Bacteria None Seen (None Seen) Hyaline Casts 0-2 (0-2) /LPF COVID-19 ([facility]) (Negative) COVID-19 Clin Com Discharge Plan Discharge Clinical Impression: Abdominal pain, Anxiety Patient Disposition: Still a Patient Prescriptions: No Action (DME) cane Device See Rx Instructions .Route Qty: 1 0RF Rx Instructions: As directed (DME) QUAD CANE See Rx Instructions .Route .MEDSUPPLY Qty: 1 0RF Rx Instructions: As directed clonazepam 0.5 mg tablet 0.5 mg PO DAILY PRN (Reason: anxiety) 30 Days Qty: 30 0RF atenolol 50 mg tablet 50 mg PO DAILY@1700 90 Days Qty: 90 0RF simvastatin 5 mg tablet 5 mg PO DAILY@1700 90 Days Qty: 90 0RF acetaminophen 325 mg Tablet 325 mg PO QID PRN (Reason: Pain) metronidazole 500 mg tablet 500 mg PO Q8H 7 Days Qty: 21 0RF ciprofloxacin HCl 500 mg tablet 500 mg PO BID 7 Days Qty: 14 0RF cholecalciferol (vitamin D3) 25 mcg (1,000 unit) capsule 25 mcg PO DAILY lwiwotun-lmznofs-hibz-lutein Tablet 1 tab PO DAILY (DME) lightweight Walker See Rx Instructions .Route .MEDSUPPLY Qty: 1 0RF Rx Instructions: As directed
--- NOTE | 2022-09-17 00:23 | PC.NURSE ---
Pt is a/o x4, pt has tender abd painful touch on LUQ. Pt bowel sound were hypoactive. Pt skin was intact and no discoloration or hematoma.
[2022-09-17 00:33] LABS: MANUAL DIFF FLAG NO
[2022-09-17 00:35] LABS: Basophils Percent Auto 0.5 % (0-2); Eosinophils Absolute Auto 0.1 X10*3/uL (0.0-0.4); Eosinophils Percent Auto 0.9 % (0-4); Hematocrit 40.3 % (37.0-47.0); Imm Gran Abs Auto 0.02 X10*3/uL (0.00-0.03); Imm Gran Pct Auto 0.3 % (0.0-0.4); Lymphocytes Absolute Auto 1.1 X10*3/uL (1.2-4.9); Lymphocytes Percent Auto 17.8 % (20-40); Mean Corpuscular HGB Conc 32.3 g/dl (31.0-35.0); Mean Corpuscular Volume 93.1 fL (80.0-98.0); Mean Platelet Volume 10.4 fL (9.4-12.3); Monocytes Absolute Auto 0.8 X10*3/uL (0.1-1.2); Monocytes Percent Auto 13.1 % (2-11); Neutrophils Absolute Auto 4.3 x10*3/uL (2.0-8.3); Neutrophils Percent Auto 67.4 % (45-73); Platelet Count 204 X10*3/uL (160-400); Red Blood Count 4.33 X10*6/uL (4.20-5.50); Red Cell Distribution Width 13.2 % (11.0-16.0); White Blood Count 6.3 X10*3/uL (4.8-10.8)
[2022-09-17 00:42] LABS: COVID-19 Test Negative (Negative)
[2022-09-17 00:46] LABS: Lactic Acid 1.1 mmol/L (0.5-2.0)
--- NOTE | 2022-09-17 00:47 | PC.NURSE ---
Addendum entered by Emily Lamar 09/17/22 02:01: pt did agree to have blood culture drawn . Original Note: PATIENT REFUSED TO HAVE BLOOD CULTURES DRAWN ,PT SAID SHE DOES NOT WANT TO BE STUCK ANY MORE ,MD HELLER AND DIANA RUIZ .
[2022-09-17 00:53] LABS: Alanine Aminotransferase 23 U/L (0-31); Albumin Level 3.8 g/dL (3.5-5.0); Alkaline Phosphatase 50 U/L (39-117); Anion Gap 16 (12-20); Aspartate Amino Transferase 25 U/L (5-31); Bilirubin Direct 0.3 mg/dL (0.0-0.5); Bilirubin Total 0.5 mg/dL (0.0-1.0); Blood Urea Nitrogen 15 mg/dL (9-16); Calcium 9.4 mg/dL (8.4-10.2); Carbon Dioxide 21 mmol/L (22-29); Chloride 106 mmol/L (96-108); Creatinine Clr Calc Pharmacy 33.7; Estimated Glomerular Filt Rate 57; Glucose Random 162 mg/dL (60-115); Lipase 23 U/L (8-78); Sodium 139 mmol/L (135-145); Total Protein 6.4 g/dL (6.5-8.0)
[2022-09-17 00:55] LABS: Troponin-I High Sensitivity 4.9 ng/L (<3.5-17.0)
[2022-09-17 00:56] LABS: Prothrombin Time > 320.0 SEC (10.0-13.1)
[2022-09-17 00:58] LABS: INTERNATIONAL NORM RATIO > 26.0 (0.9-1.1)
[2022-09-17 01:51] LABS: Appearance Urine Clear; Color Urine Yellow; Glucose Urine UA Negative (Negative); Leukocyte Esterase Urine Small (1+) (Negative); Nitrite Urine Negative (Negative); Specific Gravity - Urine 1.015 (1.005-1.025); UMIC TRIGGER UACC YES; Urine Blood Negative (Negative); Urine Ketones Trace mg/dL (Negative); Urine Protein Negative (Neg-Trace)
[2022-09-17 01:56] LABS: INTERNATIONAL NORM RATIO 1.2 (0.9-1.1); Prothrombin Time 13.3 SEC (10.0-13.1)
[2022-09-17 02:01] LABS: Bacteria Urine None Seen (None Seen); Hyaline Casts Urine 0-2 /LPF (0-2); RBC Urine 0-2 /HPF (0-2); UACC Culture Trigger YES
--- NOTE | 2022-09-17 02:02 | PC.NURSE ---
0200 ROUNDING DONE ,VS TAKEN PT WAS ASSISTED TO USE THE BED YOUNG ,PT VOIDED LARGE AMOUNT,CALL QUEEN WITHIN REACH .
[2022-09-17] MEDS: iohexoL 350 MG/ML 100 ML INFUS..BTL 85 ML IV (02:33)
[2022-09-17] MEDS: cefTRIAXone sodium 1 GM in 0.9 % Sodium Chloride 50 ML IV (03:43)
[2022-09-17] MEDS: cephALEXin 500 MG CAPSULE PO ×2 (09:24→21:10)
--- NOTE | 2022-09-17 12:11 | PHA.MEDREC ---
Pharmacy Consult ? Medication Reconciliation Pharmacy has completed the medication reconciliation.
[2022-09-17] MEDS: clonazePAM 0.5 MG TABLET PO (13:38)
[2022-09-17] MEDS: metroNIDAZOLE 500 MG TABLET PO ×2 (13:38→21:10)
--- NOTE | 2022-09-17 14:31 | MHC.CM.PN ---
EMR REVIEWED, CM MET W/PT WHO REPORTS SHE LIVES ALONE, USES A CANE HER WALKER IS TOO WIDE AND HEAVY, PT HAS A [facility] CM AND 2 HRS A WEEK FOR HOME HEALTH AID WHO PRIMARILY ONLY HAS TIME TO DO PT'S SHOPPING. PT DENIES HAVING ANY OTHER HELP AT HOME. SHE REPORTED SHE HAD A FRIEND WHO HELPED HER AND BROUGHT HER TO APPT'S HOWEVER SHE NO LONGER ANSWERS HER CALLS. PT C/O ABDOMINAL PAIN AND IS ANXIOUS ABOUT RETURNING HOME SHE DOESN'T FEEL SHE WILL BE ABLE TO MANAGE W/THIS PAIN, PT EVAL PENDING AND PT WILL LIKELY NEED STR, REFERRALS PLACED TO [facility] AND LOCAL SNF'S. ED CM WILL CONT TO FOLLOW. PT DOES REPORTS BEING COVID VACCINATED X1 HOWEVER IS UNSURE WHICH VACCINE SHE HAD.
[2022-09-17] MEDS: Atorvastatin Calcium 10 MG TABLET 5 MG PO (18:06)
[2022-09-17] MEDS: atenoloL 50 MG TABLET PO (18:07)
[2022-09-17] MEDS: levoFLOXacin 250 MG TABLET PO (18:09)
[2022-09-17] MEDS: Acetaminophen 325 MG TABLET 975 MG PO (18:36)
[2022-09-17 19:11] LABS: MANUAL DIFF FLAG NO
[2022-09-17 19:14] LABS: Basophils Percent Auto 0.5 % (0-2); Eosinophils Absolute Auto 0.1 X10*3/uL (0.0-0.4); Eosinophils Percent Auto 2.4 % (0-4); Hematocrit 37.4 % (37.0-47.0); Hemoglobin 12.6 g/dl (12.0-16.0); Imm Gran Abs Auto 0.02 X10*3/uL (0.00-0.03); Imm Gran Pct Auto 0.3 % (0.0-0.4); Lymphocytes Absolute Auto 1.1 X10*3/uL (1.2-4.9); Lymphocytes Percent Auto 19.9 % (20-40); Mean Corpuscular HGB Conc 33.7 g/dl (31.0-35.0); Mean Corpuscular Hemoglobin 29.7 pg (27.0-33.0); Mean Corpuscular Volume 88.2 fL (80.0-98.0); Monocytes Absolute Auto 0.7 X10*3/uL (0.1-1.2); Monocytes Percent Auto 12.5 % (2-11); Neutrophils Absolute Auto 3.7 x10*3/uL (2.0-8.3); Neutrophils Percent Auto 64.4 % (45-73); Platelet Count 193 X10*3/uL (160-400); Red Blood Count 4.24 X10*6/uL (4.20-5.50); Red Cell Distribution Width 13.2 % (11.0-16.0); White Blood Count 5.7 X10*3/uL (4.8-10.8)
[2022-09-17 19:34] LABS: Anion Gap 12 (12-20); Blood Urea Nitrogen 9 mg/dL (9-16); Calcium 8.6 mg/dL (8.4-10.2); Carbon Dioxide 24 mmol/L (22-29); Chloride 107 mmol/L (96-108); Creatinine Clr Calc Pharmacy 43.5; Estimated Glomerular Filt Rate > 60; Glucose Random 94 mg/dL (60-115); Potassium 3.9 mmol/L (3.3-5.1); Sodium 139 mmol/L (135-145)
[2022-09-18] VITALS (7 sets, daily range): BP systolic 114–154; BP diastolic 64–81; PULSE 83–104; RESP 14–21; TEMP 36.7–37.4; O2SAT 91–98
[2022-09-18] MEDS: Acetaminophen 325 MG TABLET 975 MG PO ×2 (02:05→08:32)
[2022-09-18] MEDS: metroNIDAZOLE 500 MG TABLET PO ×3 (06:41→20:23)
[2022-09-18] MEDS: Multivitamin TABLET 1 TAB PO (08:26)
[2022-09-18] MEDS: cephALEXin 500 MG CAPSULE PO ×2 (08:26→20:23)
[2022-09-18] MEDS: Cholecalciferol (Vitamin D3) 25 MCG TABLET PO (08:26)
--- NOTE | 2022-09-18 08:45 | PC.NURSE ---
patient a/o to self and situation . c/o 10 out 10 pain in abdomen and lower back obtained order for Tylenol 975 from provider . administered as ordered . pearrla . breathing even and unlabored . lungs clear . heart rate regular at 87 beats per minute . abdomen is soft rebound tenderness reported throughout reported by patient . hypoactive bowel sounds noted . Patient given warm tea as requested . bed positioned at lowest possible level . patient awaiting placement by case management .patient aware of plan of care .
--- NOTE | 2022-09-18 09:34 | PC.NURSE ---
Sydney from Physical Therapy at bedside . patient aware of plan of care .
--- NOTE | 2022-09-18 12:24 | MHC.CM.ED ---
Addendum entered by Roxann Oliver 09/18/22 15:40: Patient has decided she will go to short term rehab at [facility]. ELSN will need a HCP completed. Patient aware. Patient will leave ER to go to [facility] via BLS on 09/19 at 10am. [facility] BLS booked. [facility] with chart. Original Note: Patient remains in ER. Physical therapy eval completed. Short term rehab is recommended. [facility], [facility] [place], and [facility] [address] would be willing to offer a bed with a completed HCP. Met with patient in regards to discharge planning. Patient stated I don't know if I want to go to rehab. Patient requesting to see provider because she's afraid there is something wrong with her heart. Zahraa ROSARIO aware and will see patient. Patient aware she will either need to go to short term rehab or return home today. Continue to monitor for d/c needs.
[2022-09-18] MEDS: clonazePAM 0.5 MG TABLET PO (13:30)
--- NOTE | 2022-09-18 16:39 | PC.NURSE ---
1600 rounding done ,pt was assisted to use the bed mishra ,vs taken ,call byrne within reach .
[2022-09-18] MEDS: Atorvastatin Calcium 10 MG TABLET 5 MG PO (16:49)
[2022-09-18] MEDS: atenoloL 50 MG TABLET PO (16:50)
--- NOTE | 2022-09-18 18:10 | PC.NURSE ---
Patient plan of care to discharge to [facility] at 10 Am . Case management will be seeing patient to finish paperwork in AM . patient aware of plan of care .
--- NOTE | 2022-09-18 18:24 | MHC.CM.ED ---
CM met with patient with regards to completing HCP. Pt not willing to complete HCP at this time. Pt aware that she needs to complete one for the facility. Pt requests to complete one in the morning. Aware that she will go to [facility] at 10am tomorrow, 09/19, If she completes her HCP. Pt very concerned about her money, wanting to know if there is a safe at the facility. Pt came to hospital with a significant amount of money in jones. Security aware, money counted with patient and Security and placed in the safe. CM to follow for d/c needs.
--- NOTE | 2022-09-18 18:53 | PC.NURSE ---
1800 rounding done ,pt was assisted unto bedpan ,voided large amount of urine ,this pct give pt a bed bath ,apply lotion and comb pt hair ,pt was set up with her dinner tray ,call byrne within reach .
--- NOTE | 2022-09-18 19:54 | PC.NURSE ---
2000 rounding done ,dinner tray got picked up ,pt ate 100 % of turkey sandwich and 120 ml cranberry juice ,pt watching television ,call byrne within reach .
--- NOTE | 2022-09-18 22:30 | PC.NURSE ---
2200 rounding done pt asleep ,call byrne within reach .
--- NOTE | 2022-09-18 23:51 | PC.NURSE ---
0000 rounding done ,pt still sleeping ,call byrne within reach .
--- NOTE | 2022-09-19 | ECG_ITS ---
Test Reason : CHEST PAIN Blood Pressure : / mmHG Vent. Rate : 096 BPM Atrial Rate : 096 BPM P-R Int : 142 ms QRS Dur : 084 ms QT Int : 338 ms P-R-T Axes : 028 -02 028 degrees QTc Int : 427 ms Normal sinus rhythm Anterior infarct , age undetermined Low voltage QRS Nonspecific ST abnormality Abnormal ECG When compared with ECG of 17-SEP-2022 00:27, No significant change was found Referred By: Flor An Electronically Signed By:PA COLON MD
--- NOTE | 2022-09-19 01:18 | PC.NURSE ---
Pt sleeping at this time respirations regular.
--- NOTE | 2022-09-19 02:02 | PC.NURSE ---
Pt sleeping at this time, respirations regular.
--- NOTE | 2022-09-19 02:21 | PC.NURSE ---
0200 ROUNDING DONE PT SLEEPING ,CALL QUEEN IN PLACE .
--- NOTE | 2022-09-19 03:10 | PC.NURSE ---
Pt assisted to bedside commode, pt requesting Tylenol and water. Orders placed pt given water.
[2022-09-19] MEDS: Acetaminophen 325 MG TABLET 650 MG PO (03:12)
--- NOTE | 2022-09-19 04:14 | PC.NURSE ---
0400 rounding done pt was awake but back to sleep .
[2022-09-19] MEDS: metroNIDAZOLE 500 MG TABLET PO (05:24)
[2022-09-19 05:45] VITALS: BP 152/80; PULSE 98; RESP 16; TEMP 37.3; O2SAT 97
--- NOTE | 2022-09-19 06:38 | PC.NURSE ---
pt brought from ED bed 13 to overflow bed 2 @0615 am
--- NOTE | 2022-09-19 06:43 | PC.NURSE ---
pt very anxious about where she is and where she is going. very anxious about her money and her jewelry and where everything is. pt reassured that her money is safely locked up by security and jewelry is safely at the bedside with her.
[2022-09-19] MEDS: clonazePAM 0.5 MG TABLET PO (07:35)
--- NOTE | 2022-09-19 08:18 | MHC.CM.ED ---
Addendum entered by Roxann Oliver 09/19/22 12:47: [facility] booked. Med nec with chart. Original Note: Met with patient and Alicia from security. Attempted multiple times to get patient to complete a HCP. Patient continues to refuse to sign one. T/W tried to explain a prison facility will not be able to accept her without one. Patient verbalized understanding and states she wants to go home. Arsh CARBONE arranged for prison, physical therapy and occupational therapy. Chair jyoti booked. Med nec with chart. Patient, Sandie RN and Kimberlyn ROSARIO aware. Continue to monitor for d/c needs.
[2022-09-19] MEDS: Multivitamin TABLET 1 TAB PO (08:59)
[2022-09-19] MEDS: cephALEXin 500 MG CAPSULE PO (08:59)
[2022-09-19] MEDS: Cholecalciferol (Vitamin D3) 25 MCG TABLET PO (09:00)
[2022-09-19 14:37] VITALS: BP 135/64; PULSE 112; RESP 14; TEMP 37.6; O2SAT 97
[2022-09-19] MEDS: Atorvastatin Calcium 10 MG TABLET 5 MG PO (16:53)
[2022-09-19] MEDS: atenoloL 50 MG TABLET PO (16:54)
== END 2022-09-19 18:03 | disposition home or self-care (01) ==
PROVIDERS: Nurse Practitioner Family; Emergency Provider Emergency Medicine; PCP Internal Medicine
DX: R10.13 Epigastric pain (principal); N39.0 Urinary tract infection, site not specified; F41.1 Generalized anxiety disorder; F43.0 Acute stress reaction; R07.89 Other chest pain; R50.9 Fever, unspecified; R26.81 Unsteadiness on feet; Z20.822 Contact with and (suspected) exposure to COVID-19; Z79.899 Other long term (current) drug therapy
CPT/HCPCS: 36415; 74177; 80048; 80076; 81001; 83605; 83690; 83735; 84484; 85025; 85610; 87040; 87086; 87635; 93005; 97162; 99285; J0696; Q9967

== ENCOUNTER 2022-09-20 06:07 | Emergency (ER) | payer MEDICARE, MEDICAID, SELFPAY ==
[2022-09-20 06:16] VITALS: BP 137/72; PULSE 86; RESP 16; TEMP 37.1; O2SAT 93; BMI 22.8
--- NOTE | 2022-09-20 06:16 | ED_ITS ---
HPI - General Adult General Stated complaint: BACK PAIN,WEAKNESS Time Seen by Provider: 09/20/22 06:12 Source: patient and EMS Mode of arrival: EMS Limitations: no limitations History of Present Illness HPI narrative: patient comes to the emergency room complaining of weakness. Patient was seen in the emergency room on September 17, case management evaluated the patient, they recommended snf facility. Yesterday, September 19, patient refused to go to shorten her rehab and requested to go home. Case management established visiting nurse services, snf, physical therapy and occupational therapy from home. This morning. Patient went to the bathroom, she was too weak to get up. Eventually, she was strong enough to manage getting up from the toilet seat, walked towards the phone and call 911. Patient reports that she did not fall. This time, patient is willing to return to the nursing facility. Related Data Home Medications Medication Instructions Recorded Confirmed cholecalciferol (vitamin D3) 25 25 mcg PO DAILY 12/17/20 09/17/22 mcg (1,000 unit) capsule skrqfypt-vioxfcy-lmhh-lutein tablet 1 tab PO DAILY 12/17/20 09/17/22 acetaminophen 325 mg tablet 325 mg PO QID PRN Pain 09/08/22 09/17/22 Previous Rx's Medication Instructions Recorded lightweight Walker #1 ea 06/27/21 cane #1 ea 12/15/21 QUAD CANE #1 ea 12/16/21 clonazepam 0.5 mg tablet 0.5 mg PO DAILY PRN anxiety 30 08/25/22 days #30 tabs ciprofloxacin HCl 500 mg tablet 500 mg PO BID 7 days #14 tabs 09/10/22 metronidazole 500 mg tablet 500 mg PO Q8H 7 days #21 tabs 09/10/22 atenolol 50 mg tablet 50 mg PO DAILY@1700 90 days #90 09/15/22 tabs simvastatin 5 mg tablet 5 mg PO DAILY@1700 90 days #90 tabs 09/15/22 cephalexin 500 mg capsule 500 mg PO BID 5 days #10 caps 09/19/22 Allergies Allergy/AdvReac Type Severity Reaction Status Date / Time Penicillins Allergy Mild RASH Verified 09/14/22 09:54 clindamycin [CLINDAMYCIN] Allergy Unknown FELT Verified 09/14/22 09:54 AWFUL/upset stomach penicillin V Allergy Unknown rash Verified 09/14/22 09:54 oxycodone [OXYCODONE] AdvReac Unknown STOMACH Verified 09/14/22 09:54 UPSET From [facility] Allergy Mild GI UPSET Uncoded 09/08/22 14:17 Review of Systems Review of Systems: Constitutional : No Weight loss, No Fever, No Chills, No Night Sweats, No Fatigue, No Malaise ENT/Mouth : No Hearing loss, No Ear Pain, No Nasal Congestion, No Sinus Pain, No Hoarseness, No sore throat, No Rhinorrhea, No Swallowing Difficulty Eyes: No Eye Pain, No Swelling, No Redness, No Foreign Body, No Discharge, No Vision Changes Cardiovascular : No Chest Pain, No SOB, No Dyspnea on Exertion, No Orthopnea, No Edema, No Palpitations Respiratory : No Cough, No Sputum, No Wheezing, No Smoke Exposure, No Dyspnea Gastrointestinal : No Nausea, No Vomiting, No Diarrhea, No Constipation, No abdominal Pain, No Hematochezia, No Melena Genitourinary : no irregular bleeding, No Dysuria, No Urinary Frequency, No Hematuria, No Urinary Incontinence, No Urgency, No Flank Pain, No Urinary Flow Changes, No Hesitancy Musculoskeletal : No joint pain, No Myalgias, No Joint Swelling, complaining of generalized weakness Skin : No Skin Lesions, No rash Neuro : No Weakness, No Numbness, No Paresthesias, No Loss of Consciousness, No Dizziness, No Headache Psych : complaining of anxiety,No SI/HI/AH/VH, No Social Issues, Heme/Lymph: No Bruising, No Bleeding,No Lymphadenopathy Endocrine : No Polyuria, No Polydipsia, No Temperature Intolerance [facility] Past Medical History Medical History Asthma Cataracts, bilateral Cervical spondylosis Cholelithiasis Diverticulitis Generalized anxiety disorder Goiter Hypercholesterolemia Hypertension Impaired glucose tolerance LLQ pain Osteopenia Post-menopausal Problem of both ears Scoliosis Surgical History History of cataract surgery History of colonoscopy Hx of cholecystectomy Hx of tonsillectomy Status post total abdominal hysterectomy Family History Family History Father No problems noted. Mother No problems noted. Social History Social History Household Members: None Housing: Apartment Do you presently have visiting nurse or other home services: Yes Alcohol intake: former Patient Tobacco Use Status: Never used Tobacco e-Cigarette/Vaping Use: Never Used Second Hand Smoke Exposure: No service: No Current occupational status: retired and disabled Cognitive needs: Yes (cane, walker) Hearing needs: No Vision needs: Yes Physical Exam ED Const Other: Appearance: Alert. Oriented X3. No acute distress. Eyes: Pupils equal, round and reactive to light. ENT: Pharynx normal. Neck: Normal inspection. Neck supple. No lymph nodes noted. No crepitus CVS: Normal heart rate and rhythm. Pulses normal. Normal S1 and S2 Respiratory: No respiratory distress. Breath sounds normal. No Wheezing. No rales Abdomen: Soft and nontender. No rigidity. No distention. Skin: Skin warm and dry. Normal skin color. Normal skin turgor. Extremities: No lower extremity edema. No Lacerations. No Rash Neuro: Oriented X 3. No motor deficit. No sensory deficit. Moving all extremities. No slurred speech. CN 2 through 12 grossly intact Psych: calm, cooperative, anxious Course Course Course Narrative: this time, patient is willing to go to a snf facility. Patient's basic labs are pending. Physical therapy and Case Management consult pending. Physician observation started at 06:20 sign out given to DR. Bui Discharge Plan Discharge Clinical Impression: Weakness Patient Disposition: Still a Patient Prescriptions: No Action (DME) cane Device See Rx Instructions .Route Qty: 1 0RF Rx Instructions: As directed (DME) QUAD CANE See Rx Instructions .Route .MEDSUPPLY Qty: 1 0RF Rx Instructions: As directed clonazepam 0.5 mg tablet 0.5 mg PO DAILY PRN (Reason: anxiety) 30 Days Qty: 30 0RF atenolol 50 mg tablet 50 mg PO DAILY@1700 90 Days Qty: 90 0RF simvastatin 5 mg tablet 5 mg PO DAILY@1700 90 Days Qty: 90 0RF acetaminophen 325 mg Tablet 325 mg PO QID PRN (Reason: Pain) metronidazole 500 mg tablet 500 mg PO Q8H 7 Days Qty: 21 0RF ciprofloxacin HCl 500 mg tablet 500 mg PO BID 7 Days Qty: 14 0RF cephalexin 500 mg capsule 500 mg PO BID 5 Days Qty: 10 0RF cholecalciferol (vitamin D3) 25 mcg (1,000 unit) capsule 25 mcg PO DAILY nanjfqqd-adbccsy-idxd-lutein Tablet 1 tab PO DAILY (DME) lightweight Walker See Rx Instructions .Route .MEDSUPPLY Qty: 1 0RF Rx Instructions: As directed
[2022-09-20 06:36] LABS: Basophils Percent Auto 0.2 % (0-2); Eosinophils Percent Auto 0.2 % (0-4); Hematocrit 39.5 % (37.0-47.0); Hemoglobin 13.4 g/dl (12.0-16.0); Imm Gran Abs Auto 0.23 X10*3/uL (0.00-0.03); Imm Gran Pct Auto 1.8 % (0.0-0.4); Lymphocytes Absolute Auto 0.8 X10*3/uL (1.2-4.9); Lymphocytes Percent Auto 6.1 % (20-40); MANUAL DIFF FLAG NO; Mean Corpuscular HGB Conc 33.9 g/dl (31.0-35.0); Mean Corpuscular Hemoglobin 30.2 pg (27.0-33.0); Mean Platelet Volume 10.3 fL (9.4-12.3); Monocytes Absolute Auto 1.1 X10*3/uL (0.1-1.2); Monocytes Percent Auto 8.1 % (2-11); Neutrophils Absolute Auto 10.9 x10*3/uL (2.0-8.3); Neutrophils Percent Auto 83.6 % (45-73); Platelet Count 238 X10*3/uL (160-400); Red Blood Count 4.44 X10*6/uL (4.20-5.50); Red Cell Distribution Width 13.2 % (11.0-16.0)
[2022-09-20 06:43] VITALS: BP 132/66; PULSE 73; RESP 16; TEMP 37.4; O2SAT 96
[2022-09-20 06:47] LABS: COVID-19 Test Negative (Negative)
[2022-09-20 06:57] LABS: Anion Gap 16 (12-20); Blood Urea Nitrogen 15 mg/dL (9-16); Calcium 8.5 mg/dL (8.4-10.2); Carbon Dioxide 20 mmol/L (22-29); Chloride 103 mmol/L (96-108); Creatinine Clr Calc Pharmacy 36.8; Estimated Glomerular Filt Rate > 60; Glucose Random 143 mg/dL (60-115); Potassium 4.2 mmol/L (3.3-5.1); Sodium 135 mmol/L (135-145)
[2022-09-20 07:34] VITALS: BP 132/66; PULSE 73; O2SAT 96
[2022-09-20 10:11] VITALS: BP 121/49; PULSE 90; RESP 18; TEMP 37.6; O2SAT 94
--- NOTE | 2022-09-20 10:52 | PC.NURSE ---
sleeping on/off all morning, nad, ate breakfast, communicated bridget du from case management re placement etc, Laura from pharmacy working on med rec
--- NOTE | 2022-09-20 11:24 | MHC.CM.ED ---
Received case management consult from Dr An. Patient was at [facility]. Short term rehab was recommended at that time. Patient refused to sign a HCP and no STR beds could be offered. Patient discharged home and returned to the ER. HCP completed, signed and witnessed. Original given to patient. Copy placed in chart. [facility] patient's [facility] choice. Referal made via [facility]. [facility] is able to offer a bed. Patient can leave ER at 1230pm. Onel [facility] booked. Med [facility] with chart. Patient, Mookie RN and Yodit BREWER aware. Continue to monitor for d/c needs.
--- NOTE | 2022-09-20 11:46 | PC.NURSE ---
report called to snf
== END 2022-09-20 11:45 | disposition skilled nursing facility (03) ==
PROVIDERS: Emergency Provider Emergency Medicine; PCP Internal Medicine
DX: M54.50 Low back pain, unspecified (principal); R26.81 Unsteadiness on feet; Z20.822 Contact with and (suspected) exposure to COVID-19; Z79.899 Other long term (current) drug therapy
CPT/HCPCS: 80048; 85025; 87635; 97162; 99283; 99285